=== PATIENT | female | born 1985 | race Caucasian/White ===

== ENCOUNTER 2017-02-28 00:44 | Emergency (ER) | payer MEDICAID, OTHER ==
[~2017-02-28] VITALS: Ht 160 cm; Wt 46.7 kg
[~2017-02-28 00:44] MED LIST: CYCL10TA9 PO; FERR-57 PO; IBP800T PO; NAPR-243 PO; OXYC-12 PO; PREN1TAB39 PO
--- OUTSIDE RECORDS SUMMARY | 2017-02-28 00:54 | XMS REPORT | CCD ---
Author Author KATARINA WILLIAM Organization Unknown Address [address] [facility] [address] [place] [address] Care Team Providers Care Pharmaceutical Officer Name Role Phone MIRTA RUDOLPH, CHAU Auguste Attphys CHAU KIRBY MD Prisurg Allergies Allergy Code Allergy Type Reaction Status No Known Drug Allergies 0 Drug allergy Active Active Medications Medication Code Dose Units Frequency Route Modification Start Date/Time Acetaminophen/Codeine 300MG-30MG Oral Tablet 435751 1 TABLET NEEDED EVERY 6 HR BY MOUTH 02/01/2014 08 :57 Prescription Detail 1 TABLET BY MOUTH NEEDED EVERY 6 HR Ibuprofen 800MG Oral Tablet 575090 800 MILLIGRAMS NEEDED EVERY 8 HR BY MOUTH 02/01/2014 08:57 Prescription Detail 800 MILLIGRAMS BY MOUTH NEEDED EVERY 8 HR Oral Tablet 260271 1 EACH DAILY ORAL 02/01/2014 08:57 Prescription Detail 1 EACH ORAL DAILY Problems Problem Code Start Date Resolved Date Status Vaginal delivery 301661629 Active Female sterilization 78567237 Active Procedures Procedure Code Procedure Type Date CT HEAD W/O CONTRAST 965674245 SNOMED CT 11/20/2015 CULTURE BLOOD 49400839 SNOMED CT 11/20/2015 C REACTIVE PROTEIN 06788890 SNOMED CT 11/20/2015 VENOUS BLOOD GAS 22333830 SNOMED CT 11/20/2015 RAPID DRUG SCREEN 626204955 SNOMED CT 11/20/2015 UA ROUTINE C&S IF IND 116239914 SNOMED CT 11/20/[address] 11/20/2015 COMPREHENSIVE METABOLIC PANEL 352623162 SNOMED CT 2015 CBC W/ AUTO DIFF (RFLX MAN DIFF IF IND) 4331868 SNOMED CT 11/20/2015 ^UA WITH MICRO 268308514 SNOMED CT 11/20/2015 ^CBC W/AUTO DIFF 4895563 SNOMED CT 11/20/2015 Results COMPREHENSIVE METABOLIC PANEL - Collect Date/Time: 11/20/2015 00:10 Test Name Code Test Result Test Units Test Ref Range GLUCOSE 2345-7 99 MG/DL L=70 H=100 SODIUM 2951-2 140 MEQ/L L=135 H=148 POTASSIUM 2823-3 3.4 MEQ/L L=3.5 H=5.3 CHLORIDE 2075-0 104 MEQ/L L=96 H=110 CO2 2028-9 24 MEQ/L L=22 H=29 BUN 3094-0 5 MG/DL L=8 H=22 CREATININE 2160-0 0.9 MG/DL L=0.6 H=1.6 SGOT/AST 1920-8 20 IU/L L=10 H=40 SGPT/ALT 1742-6 19 IU/L L=8 H=54 ALK PHOS 6768-6 106 IU/L L=35 H=115 TOTAL PROTEIN 2885-2 7.2 G/DL L=5.5 H=8.5 ALBUMIN 1751-7 4.6 G/DL L=3.1 H=5.4 TOTAL BILI 1975-2 0.4 MG/DL L=0.0 H=1.5 CALCIUM 92561-2 9.0 MG/DL L=8.2 H=10.6 AGE 29 yrs GFR NonAA 74 GFR AA 90 eGFR >60 N/A eGFR AA* >60 N/A RAPID DRUG SCREEN - Collect Date/Time: 11/20/2015 00:41 Test Name Code Test Result Test Units Test Ref Range Cannabinoids (THC) NEGATIVE N/A NEG: < 50 ng/ ml Phencyclidine (PCP) NEGATIVE N/A NEG: < 25 ng/ ml Cocaine NEGATIVE N/A NEG: < 300 ng/ml Methamphetamine NEGATIVE N/A NEG: < 1000 ng/ml Opiates NEGATIVE N/A NEG: < 300 ng/ml Amphetamine NEGATIVE N/A NEG: < 1000 ng/ml Benzodiazepines NEGATIVE N/A NEG: < 300 ng/ml Tricyclic Antidepres NEGATIVE N/A NEG: < 300 ng/ ml Methadone NEGATIVE N/A NEG: < 300 ng/ml Barbiturates NEGATIVE N/A NEG: < 200 ng/ml Oxycodone NEGATIVE N/A NEG: < 100 ng/ml Propoxyphene (PPX) NEGATIVE N/A NEG: < 300 ng/ ml CBC W/ AUTO DIFF (RFLX MAN DIFF IF IND) - Collect Date/Time: 11/20/2015 00:10 Test Name Code Test Result Test Units Test Ref Range WBC 01923-8 7.0 TH/CMM L=4.5 H=10.8 RBC 789-8 4.37 ML/CMM L=4.20 H=5.40 HGB 718-7 12.2 G/DL L=12.0 H=16.0 HCT 4544-3 38.7 % L=37.0 H=47.0 MCV 89 FL L=81 H=99 MCH 27.9 PG L=27.0 H=33.0 MCHC 31.5 G/DL L=31.0 H=36.0 RDW SD 44 FL L=36 H=50 RDW CV 13.6 % L=0.0 H=14.8 MPV 10.5 FL L=9.3 H=12.5 PLT 777-3 252 TH/CMM L=130 H=440 NRBC# 0.00 TH/CMM L=0.00 H=0.00 NRBC% 0.0 /100WBC L=0.0 H=2.0 %NEUT 57.5 % %LYMP 30.9 % %MONO 9.2 % %EOS 1.9 % %BASO 0.4 % #NEUT 4.00 TH/CMM L=2.10 H=8.20 #LYMP 2.15 TH/CMM L=0.90 H=5.20 #MONO 0.64 TH/CMM L=0.16 H=1.00 #EOS 0.13 TH/CMM L=0.00 H=0.80 #BASO 0.03 TH/CMM L=0.00 H=0.20 MANUAL DIFF NOT IND N/A UA ROUTINE C&S IF IND - Collect Date/Time: 11/20/2015 00:41 Test Name Code Test Result Test Units Test Ref Range COLOR YELLOW N/A NL: YELLOW APPEARANCE CLEAR N/A NL: CLEAR SPEC GRAV 1.015 N/A NL: 1.002 - 1.022 pH 5.5 N/A NL: 5 - 9 PROTEIN NEGATIVE N/A NL: NEGATIVE mg/dl GLUCOSE NEGATIVE N/A NL: NEGATIVE mg/dl KETONE NEGATIVE N/A NL: NEGATIVE mg/dl BILIRUBIN NEGATIVE N/A NL: NEGATIVE BLOOD TRACE-INTACT N/A NL: NEGATIVE NITRITE NEGATIVE N/A NL: NEGATIVE LEUK SCREEN NEGATIVE N/A NL: NEGATIVE MICRO INDICATED? SEE BELOW N/A WBC/HPF 0-5 N/A NL: NEGATIVE RBC/HPF 0-5 N/A NL: NEGATIVE CASTS/LPF NEGATIVE N/A NL: NEGATIVE CRYSTALS NEGATIVE N/A NL: NEGATIVE MUCOUS THRDS FEW N/A NL: NEGATIVE BACTERIA FEW N/A NL: NEGATIVE EPITH CELLS FEW SQUAMOUS N/A NL: NEGATIVE TRICHOMONAS NEGATIVE N/A NL: NEGATIVE YEAST NEGATIVE N/A NL: NEGATIVE CULT SET UP? NO N/A C REACTIVE PROTEIN - Collect Date/Time: 11/20/2015 00:10 Test Name Code Test Result Test Units Test Ref Range C REACTIVE PROTEIN 1988-5 <0.5 MG/DL L=0.0 H= 1.0 TEST - Collect Date/Time: 11/20/2015 00:10 Test Name Code Test Result Test Units Test Ref Range TEST 2117-10 NEGATIVE N/A VENOUS BLOOD GAS - Collect Date/Time: 11/20/2015 00:10 Test Name Code Test Result Test Units Test Ref Range vPH 7.33 L=7.32 H=7.43 vPCO2 49 mmHG L=40 H=60 vPO2 37 mmHG L=30 H=55 vHCO3 25 mmol/L L=22 H=27 vTCO2 23 mmol/L L=24 H=28 vO2SAT 66 % L=40 H=85 SITE RAC N/A FIO2 RA N/A vBE -0.6 N/A L=-2.0 H=2.0 Function Status Unknown or Not Available. History of Immunizations Immunization Code Date Tdap 115 12/14/2013 Influenza, seasonal, injectable, preservative free 140 2013 Influenza, seasonal, injectable, preservative free 140 2015 Influenza, seasonal, injectable 141 01/30/2011 Plan of Treatment Unknown or Not Available. Social History Smoking Status Code Start Date End Date Current every day smoker [id number] Vital Signs Unknown or Not Available. Function Status Unknown or Not Available. Goals Unknown or Not Available. ASSESSMENTS Unknown or Not Available. Health Concerns Section Unknown or Not Available.
--- OUTSIDE RECORDS SUMMARY | 2017-02-28 00:54 | XMS REPORT | CCD ---
Author Author KATARINA WILLIAM Organization Unknown Address [address] [facility] [address] [place] [address] Care Team Providers Care Factory Supervisor Name Role Phone DELVIN RUDOLPH, Ysabel HERNANDEZ Attphys MAIN CARPET CUTTER, LAKSHMI Zaldivar Rndphys 0 Allergies Allergy Code Allergy Type Reaction Status No Known Drug Allergies 0 Drug allergy Active Active Medications Medication Code Dose Units Frequency Route Modification Start Date/Time Acetaminophen/Codeine 300MG-30MG Oral Tablet 179362 1 TABLET NEEDED EVERY 6 HR BY MOUTH 02/01/2014 08 :57 Prescription Detail 1 TABLET BY MOUTH NEEDED EVERY 6 HR Ibuprofen 800MG Oral Tablet 151066 800 MILLIGRAMS NEEDED EVERY 8 HR BY MOUTH 02/01/2014 08:57 Prescription Detail 800 MILLIGRAMS BY MOUTH NEEDED EVERY 8 HR Oral Tablet 968951 1 EACH DAILY ORAL 02/01/2014 08:57 Prescription Detail 1 EACH ORAL DAILY Problems Problem Code Start Date Resolved Date Status Vaginal delivery 081467042 Active Female sterilization 09935877 Active Procedures Procedure Code Procedure Type Date Insertion of Monitoring Device into Chest Subcutaneous Tissue and Fascia, [id number] ICD-10 PCS 12/18/2015 TEST URINE 110472940 SNOMED CT 12/18/2015 Results TEST URINE - Collect Date/Time: 12/18/1999 13:15 Test Name Code Test Result Test Units Test Ref Range TEST UR 2106-3 NEGATIVE N/A Function Status Unknown or Not Available. History of Immunizations Immunization Code Date Tdap 115 12/14/2013 Influenza, seasonal, injectable, preservative free 140 2013 Influenza, seasonal, injectable, preservative free 140 2015 Influenza, seasonal, injectable 141 01/30/2011 Plan of Treatment Unknown or Not Available. Social History Smoking Status Code Start Date End Date Current every day smoker 496263409 Vital Signs Unknown or Not Available. Function Status Unknown or Not Available. Goals Unknown or Not Available. ASSESSMENTS Unknown or Not Available. Health Concerns Section Unknown or Not Available.
--- OUTSIDE RECORDS SUMMARY | 2017-02-28 00:56 | XMS REPORT | CCD ---
Author Author ALEXIS ROTHMAN Organization Unknown Address [address] [facility] [address] [place] [address] Care Team Providers Care Geek Squad Manager Name Role Phone [place] ER, WAQAS DO Attphys [place] ER, WAQAS DO Prisurg Allergies Allergy Code Allergy Type Reaction Status No Known Drug Allergies 0 Drug allergy Active Active Medications Medication Code Dose Units Frequency Route Modification Start Date/Time Acetaminophen/Codeine 300MG-30MG Oral Tablet 985858 1 TABLET NEEDED EVERY 6 HR BY MOUTH 02/01/2014 08 :57 Prescription Detail 1 TABLET BY MOUTH NEEDED EVERY 6 HR Ibuprofen 800MG Oral Tablet 635369 800 MILLIGRAMS NEEDED EVERY 8 HR BY MOUTH 02/01/2014 08:57 Prescription Detail 800 MILLIGRAMS BY MOUTH NEEDED EVERY 8 HR Oral Tablet 331751 1 EACH DAILY ORAL 02/01/2014 08:57 Prescription Detail 1 EACH ORAL DAILY Problems Problem Code Start Date Resolved Date Status Vaginal delivery 704859373 Active Female sterilization 69986074 Active Procedures Unknown or Not Available. Results Unknown or Not Available. Function Status Unknown or Not Available. History of Immunizations Immunization Code Date Tdap 115 12/14/2013 Influenza, seasonal, injectable, preservative free 140 2013 Influenza, seasonal, injectable, preservative free 140 2015 Influenza, seasonal, injectable 141 01/30/2011 Plan of Treatment Unknown or Not Available. Social History Smoking Status Code Start Date End Date Current every day smoker 685263134 Vital Signs Unknown or Not Available. Function Status Unknown or Not Available. Goals Unknown or Not Available. ASSESSMENTS Unknown or Not Available. Health Concerns Section Unknown or Not Available.
--- OUTSIDE RECORDS SUMMARY | 2017-02-28 00:56 | XMS REPORT ---
Author Author Jeri Stinson [facility] Address [address] [place], [place] [id number] Care Team Providers Care Disability Rater Name Role Phone Jeri Stinson PCP Allergies and Adverse Reactions Name Reaction Notes SULFA (SULFONAMIDES) Itching Plan of Treatment Planned Activity Comments Planned Date Planned Time Plan/Goal CBC W/ AUTO DIFF (RFLX MAN DIFF IF IND). 04/11/2015 12:00 AM COMPREHENSIVE METABOLIC PANEL 04/11/2015 12:00 AM TSH 04/11/2015 12:00 AM EKG (12-lead electrocardiogram) 08/07/2015 12:00 AM Est patient - Linq vs 30 day event monitor for evaluation of bradycardia/ weakness/presyncope. Medications Active Name Start Date Estimated Completion Date SIG Comments aspirin 81 mg oral tablet,chewable chew 1 tablet (81 mg) by oral route once daily ranitidine HCl 300 mg oral tablet take 1 tablet (300 mg) by oral route 2 times per day Maxalt 10 mg oral tablet 07/04/2015 take 1 tablet (10 mg) by oral route once, may repeat at 2 hour intervals; do not exceed 30 mg in 24 hours Maxalt 10 mg oral tablet 10/04/2015 take 1 tablet (10 mg) by oral route once, may repeat at 2 hour intervals; do not exceed 30 mg in 24 hours pantoprazole 40 mg oral tablet,delayed release (DR/EC) 10/30/2015 TAKE 1 TABLET BY MOUTH ONCE DAILY Zofran ODT 4 mg oral tablet,disintegrating 11/01/2015 dissolve 1 tablet by oral route every 8 hours as needed nausea and/or vomiting fluticasone 50 mcg/actuation nasal spray,suspension 11/24/2015 inhale 2 sprays (100 mcg) in each nostril by intranasal route once daily cetirizine 10 mg oral tablet 11/24/2015 take 1 tablet (10 mg) by oral route once daily as needed pantoprazole 40 mg oral tablet,delayed release (DR/EC) 01/15/2016 TAKE 1 TABLET BY MOUTH ONCE DAILY cetirizine 10 mg oral tablet 01/15/2016 take 1 tablet (10 mg) by oral route once daily as needed paroxetine HCl 20 mg oral tablet 01/24/2016 05/23/2016 take 1 tablet (20 mg) by oral route once daily for 30 days ProAir HFA 90 mcg/actuation inhalation HFA aerosol inhaler 01/30/2016 inhale 1 puff by inhalation route every 6 hours prn cough midodrine 5 mg oral tablet take 1 tablet by oral route 3 times a day for 30 days rizatriptan 10 mg oral tablet 02/06/2016 TAKE 1 TABLET BY MOUTH ONCE DAILY MAY REPEAT AT 2 HOURS INTERVALS; DO NOT EXCEED 30 MG IN 24 HOURS Tessalon Perles 100 mg oral capsule 02/07/2016 take 1 capsule (100 mg) by oral route 3 times per day as needed for cough Senna Plus 8.6-50 mg oral tablet 03/26/2016 take 2 tablets by oral route once daily as needed for constipation Name Start Date Expiration Date SIG Comments Miralax 17 gram/dose oral powder 01/12/2014 02/11/2014 take 17 gram mixed with 8 oz. water, juice, soda, coffee or tea by oral route once daily for 30 days Zofran (as hydrochloride) 4 mg oral tablet 01/12/2014 02/11/2014 take 1 tablet by oral route every 6 hours as needed for 30 days Dexilant 60 mg oral capsule,biphase delayed releas 08/09/2014 09/08/2014 take 1 capsule (60 mg) by oral route once daily for 30 days amitriptyline 25 mg oral tablet 08/09/2014 09/08/2014 take 1/2 to 1 tablet po qHS Augmentin 875-125 mg oral tablet 09/29/2014 10/06/2014 take 1 tablet by oral route every 12 hours for 7 days ibuprofen 800 mg oral tablet Take 1 tab PO every 6 hours PRN Reglan 10 mg oral tablet 04/27/2015 05/27/2015 take 1 tablet (10 mg) by oral route 4 times per day 30 minutes before meals and at bedtime for 30 days Protonix 40 mg oral tablet,delayed release (DR/EC) 07/04/2015 09/02/2015 take 1 tablet by oral route daily for 30 days Ultram 50 mg oral tablet 07/04/2015 07/11/2015 take 1 tablet (50 mg) by oral route every 4-6 hours as needed for 7 days doxycycline monohydrate 100 mg oral tablet 11/24/2015 12/01/2015 take 1 tablet by oral route 2 times a day for 7 days doxycycline monohydrate 100 mg oral tablet 02/07/2016 02/14/2016 take 1 tablet by oral route 2 times a day for 7 days Discontinued Name Start Date Discontinued Date SIG Comments Vitamin oral tablet 03/03/2014 take 1 tablet by oral route once daily Percocet 5-325 mg oral tablet 03/03/2014 09/13/2014 take 1 tablet by oral route every 4-6 hours as needed ibuprofen 800 mg oral tablet 03/03/2014 09/13/2014 take 1 tablet by oral route every 8 hours as needed for 30 days Zoloft 50 mg oral tablet 03/09/2014 09/29/2014 take 1 tablet (50 mg) by oral route once daily Diflucan 150 mg oral tablet 03/14/2014 09/13/2014 take 1 tablet (150 mg) by oral route once Protonix 40 mg oral tablet,delayed release (DR/EC) 09/07/2015 11/01/2015 take 1 tablet by oral route daily for 30 days triamcinolone acetonide 0.025 % topical cream 11/16/2015 01/17/2016 apply to affected area(s) by topical route 2 times a day as needed for itching Prozac 20 mg oral capsule 2015 12/21/2015 take 1 capsule (20 mg) by oral route once daily in the morning for 30 days 4C discontinued with start of Latuda - prozac was effective Lexapro 10 mg oral tablet 12/20/2015 take 1 tablet (10 mg) by oral route once daily Latuda 20 mg oral tablet 01/17/2016 take 1 tablet (20 mg) by oral route once daily with food (at least 350 calories) for 30 days fluoxetine 20 mg oral tablet 01/17/2016 01/24/2016 take 1 tablet by oral route 2 times a day for 30 days Problem List Description Status Onset Nausea Active 07/22/2014 Diarrhea Active 07/22/2014 Rectal bleeding Active 07/22/2014 Weight loss Active 07/22/2014 GERD (gastroesophageal reflux disease) Active 07/22/2014 Dyspepsia Active 03/07/2015 IBS (irritable bowel syndrome) Active 03/07/2015 Depression with anxiety Active 11/22/2015 Panic attack as reaction to stress Active 2015 Vital Signs Date Time BP-Sys(mm[Hg] BP-Sofia(mm[Hg]) HR(bpm) RR(rpm) Temp WT HT HC BMI BSA BMI Percentile O2 Sat(%) 03/26/2016 10:37:00 AM 102 mmHg 64 mmHg 73 bpm 16 rpm 97.7 F 118.5 lbs 63 in 20.99 kg/m2 1.55 m2 98 % 02/07/2016 1:54:00 PM 104 mmHg 54 mmHg 67 bpm 12 rpm 98.3 F 116.75 lbs 63 in 20.6811 kg/m 1.5343 m 98 % 01/30/2016 2:23:00 PM 104 mmHg 62 mmHg 50 bpm 14 rpm 96.9 F 115.5 lbs 63 in 20.46 kg/m2 1.53 m2 99 % 01/24/2016 10:45:00 AM 100 mmHg 54 mmHg 42 bpm 12 rpm 96.1 F 112 lbs 98 % 01/17/2016 10:51:00 AM 110 mmHg 62 mmHg 67 bpm 14 rpm 97.1 F 114.75 lbs 63 in 20.3268 kg/m 1.52 m2 100 % 12/20/2015 3:22:00 PM 104 mmHg 58 mmHg 44 bpm 12 rpm 97.7 F 115.5 lbs 63 in 20.46 kg/m2 1.526 m 100 % 11/24/2015 9:20:00 AM 98 mmHg 60 mmHg 63 bpm 12 rpm 97.2 F 110.5 lbs 63 in 19.574 kg/m 1.49 m2 99 % 11/22/2015 1:41:00 PM 104 mmHg 54 mmHg 66 bpm 12 rpm 97.3 F 110.5 lbs 63 in 19.57 kg/m2 1.4926 m 100 % 11/16/2015 10:46:00 AM 120 mmHg 68 mmHg 55 bpm 12 rpm 97.3 F 110.5 lbs 63 in 19.574 kg/m 1.49 m2 98 % 11/01/2015 9:37:00 AM 98 mmHg 58 mmHg 59 bpm 12 rpm 96.6 F 114.25 lbs 98 % 08/29/2015 10:14:00 AM 106 mmHg 54 mmHg 59 bpm 18 rpm 97.2 F 115.5 lbs 63 in 20.4597 kg/m 1.53 m2 99 % 08/07/2015 2:23:00 PM 102 mmHg 62 mmHg 57 bpm 20 rpm 97.1 F 119 lbs 63 in 21.08 kg/m2 1.549 m 99 % 07/04/2015 10:29:00 AM 59 bpm 20 rpm 98.6 F 121.5 lbs 63 in 21.5225 kg/m 1.57 m2 100 % 05/24/2015 9:19:00 AM 112 mmHg 45 mmHg 50 bpm 97.4 F 120 lbs 63 in 21.26 kg/m2 1.5555 m 05/09/2015 3:50:00 PM 119 mmHg 33 mmHg 50 bpm 98.3 F 116 lbs 63 in 20.5483 kg/m 1.53 m2 05/05/2015 10:52:00 AM 110 mmHg 70 mmHg 63 bpm 16 rpm 97.1 F 115 lbs 63 in 20.37 kg/m2 1.5227 m 98 % 04/21/2015 10:58:00 AM 124 mmHg 60 mmHg 73 bpm 18 rpm 97.7 F 110.5 lbs 63 in 19.574 kg/m 1.49 m2 100 % 04/10/2015 3:11:00 PM 112 mmHg 58 mmHg 58 bpm 16 rpm 98.1 F 108 lbs 63 in 19.13 kg/m2 1.4756 m 96 % 02/28/2015 9:55:00 AM 108 mmHg 70 mmHg 78 bpm 16 rpm 97 F 109 lbs 63 in 19.3083 kg/m 1.48 m2 11/07/2014 10:24:00 AM 113 mmHg 43 mmHg 41 bpm 98.1 F 106 lbs 63 in 18.78 kg/m2 1.4619 m 09/29/2014 10:33:00 AM 101 mmHg 43 mmHg 43 bpm 97.8 F 106.25 lbs 63 in 18.8211 kg/m 1.46 m2 09/13/2014 3:04:00 PM 102 mmHg 78 mmHg 60 bpm 20 rpm 103.375 lbs 63 in 18.31 kg/m2 1.4437 m 08/09/2014 1:53:00 PM 133 mmHg 87 mmHg 71 bpm 18 rpm 98.2 F 102 lbs 63 in 18.0683 kg/m 1.43 m2 07/22/2014 2:39:00 PM 122 mmHg 52 mmHg 53 bpm 16 rpm 97.9 F 113.312 lbs 63 in 20.07 kg/m2 1.5115 m 03/28/2014 11:46:00 AM 114 mmHg 63 mmHg 88 bpm 98.2 F 124.25 lbs 63 in 22.0097 kg/m 1.58 m2 03/09/2014 11:02:00 AM 122 mmHg 64 mmHg 61 bpm 18 rpm 96.8 F 124 lbs 63 in 21.97 kg/m2 1.5812 m 99 % 03/03/2014 1:58:00 PM 127 mmHg 80 mmHg 93 bpm 97.5 F 129.25 lbs 63 in 22.8954 kg/m 1.61 m2 01/12/2014 4:41:00 PM 129 mmHg 75 mmHg 77 bpm 97.7 F 141.375 lbs 63 in 25.04 kg/m2 1.6883 m Social History Name Description Comments Tobacco Current every day smoker Alcohol Current some day Denies illicit substance abuse History of Procedures Date Ordered Description Order Status 04/11/2015 12:13 PM URINALYSIS AUTO W/O SCOPE Reviewed 04/10/2015 12:00 AM GENERAL HEALTH PANEL Reviewed 04/10/2015 12:00 AM URNLS DIP STICK/TABLET RGNT AUTO W/O MICROSCOPY Reviewed 04/21/2015 12:[address] THORAX W/DYE Reviewed 04/21/2015 12:00 AM US EXAM ABDOM COMPLETE Reviewed 04/21/2015 12:00 AM ACUTE HEPATITIS PANEL Reviewed 05/09/2015 12:[address] PELVIS W/O & W/DYE Reviewed 05/09/2015 12:00 AM N.GONORRHOEAE DNA AMP PROB Reviewed 05/09/2015 12:00 AM CHLAMYDIA CULTURE Reviewed 05/12/2015 12:[address] ABD & PELV 1/> REGNS Reviewed 05/31/2015 12:00 AM US EXAM PELVIC COMPLETE Returned 05/24/2015 10:16 AM URINE TEST Reviewed 04/19/2015 12:00 AM ASSAY OF GGT Reviewed 08/07/2015 12:00 AM GENERAL HEALTH PANEL Returned 08/07/2015 12:00 AM ECG MONIT/REPRT UP TO 48 HRS Returned 11/01/2015 12:00 AM SPECIMEN HANDLING OFFICE-LAB Reviewed 11/01/2015 12:00 AM ROUTINE VENIPUNCTURE Reviewed 11/01/2015 12:00 AM COMPLETE CBC W/AUTO DIFF WBC Returned 11/01/2015 12:00 AM COMPREHEN METABOLIC PANEL Returned 11/01/2015 12:00 AM ASSAY OF FERRITIN Returned 11/01/2015 12:00 AM ASSAY OF IRON Returned 11/01/2015 12:00 AM IRON BINDING TEST Reviewed 01/12/2014 12:00 AM CYTOPATH C/V THIN LAYER Reviewed 01/12/2014 12:00 AM SPECIMEN HANDLING OFFICE-LAB Reviewed 01/12/2014 12:00 AM Urine toxicology screen Reviewed 01/13/2014 12:00 AM UMBILICAL ARTERY ECHO Reviewed 01/13/2014 12:00 AM OB US LIMITED FETUS(S) Reviewed 01/26/2014 12:00 AM OB US LIMITED FETUS(S) Reviewed 01/28/2014 12:00 AM GLUCOSE TOLERANCE TEST (GTT) Reviewed 03/03/2014 12:00 AM COMPLETE CBC W/AUTO DIFF WBC Reviewed 03/03/2014 12:00 AM Type and screen Reviewed 03/09/2014 12:00 AM CYTOPATH TBS C/V MANUAL Reviewed 03/09/2014 12:00 AM SPECIMEN HANDLING OFFICE-LAB Reviewed 03/09/2014 12:00 AM N.GONORRHOEAE DNA AMP PROB Reviewed 03/09/2014 12:00 AM CHYLMD TRACH DNA AMP PROBE Reviewed 07/22/2014 12:00 AM COMPLETE CBC W/AUTO DIFF WBC Reviewed 07/22/2014 12:00 AM COMPREHEN METABOLIC PANEL Reviewed 07/22/2014 12:00 AM ASSAY OF LIPASE Reviewed 07/22/2014 12:00 AM ECHO EXAM OF ABDOMEN Reviewed 07/22/2014 12:00 AM HEPATOBILIARY SYSTEM IMAGING Reviewed 07/22/2014 12:00 AM ASSAY OF AMYLASE Reviewed 09/13/2014 12:00 AM US EXAM PELVIC COMPLETE Reviewed 09/13/2014 12:00 AM TRANSVAGINAL US NON-OB Reviewed 09/13/2014 12:00 AM US EXAM PELVIC COMPLETE Reviewed 09/13/2014 12:00 AM US EXAM PELVIC LIMITED Reviewed 09/29/2014 10:43 AM URINE TEST Reviewed 09/29/2014 12:00 AM BX/CURETT OF CERVIX W/SCOPE Reviewed 11/14/2014 12:00 AM US EXAM PELVIC COMPLETE Reviewed 11/07/2014 12:00 AM COMPLETE CBC W/AUTO DIFF WBC Reviewed 11/07/2014 12:00 AM COMPREHEN METABOLIC PANEL Reviewed 11/07/2014 12:00 AM RBC SED RATE AUTOMATED Reviewed 11/07/2014 12:00 AM C-REACTIVE PROTEIN Reviewed 11/07/2014 12:00 AM IMMUNOASSAY TUMOR CA 125 Reviewed 11/07/2014 12:00 AM US EXAM PELVIC COMPLETE Reviewed 11/07/2014 12:00 AM HEPATITIS C AB TEST Reviewed 11/07/2014 12:00 AM HEPATITIS B SURFACE AG EIA Reviewed Results Summary Data and Description Results 12/18/1999 1:15 PM TEST UR NEGATIVE 01/06/2014 11:15 PM AMNISURE ROM NEGATIVE 01/07/2014 3:15 AM COLOR YELLOW APPEARANCE HAZY SPEC GRAV >=1.030 pH 6.0 PROTEIN NEGATIVE GLUCOSE NEGATIVE KETONE NEGATIVE BILIRUBIN NEGATIVE BLOOD NEGATIVE NITRITE NEGATIVE LEUK SCREEN SMALL WBC/HPF 10-20 RBC/HPF 0-5 CASTS/LPF NEGATIVE CRYSTALS NEGATIVE MUCOUS THRDS 2++ BACTERIA 1+ EPITH CELLS 1+ SQUAMOUS TRICHOMONAS NEGATIVE YEAST NEGATIVE CULT SET UP? YES Cannabinoids (THC) NEGATIVE Phencyclidine (PCP) NEGATIVE Cocaine NEGATIVE Methamphetamine NEGATIVE Opiates NEGATIVE Amphetamine NEGATIVE Benzodiazepines NEGATIVE Tricyclic Antidepres NEGATIVE Methadone NEGATIVE Barbiturates NEGATIVE Oxycodone NEGATIVE Propoxyphene (PPX) NEGATIVE 01/07/2014 8:40 AM WBC 8.2 RBC 3.58 HGB 11.0 g/dLHCT 32.10 %MCV 90.0 fLMCH 30.70 pgMCHC 34.30 g/dLRDW SD 45 RDW CV 13.80 %MPV 11.30 fLPLT 132 NRBC# 0.00 NRBC% 0.0 %NEUT 66.70 %%LYMP 22.20 %%MONO 9.90 %%EOS 1.0 %%BASO 0.20 %#NEUT 5.46 #LYMP 1.82 #MONO 0.81 #EOS 0.08 #BASO 0.02 MANUAL DIFF NOT IND GLUCOSE 75.0 mg/dLSODIUM 135.0 mmol/LPOTASSIUM 3.80 mmol/LCHLORIDE 106.0 mmol/LCO2 20.0 mmol/LBUN 8.0 mg/dLCREATININE 0.60 mg/dLSGOT/AST 12.0 IU/LSGPT/ALT 7.0 IU/LALK PHOS 149.0 IU/LTOTAL PROTEIN 5.80 g/dLALBUMIN 3.0 g/dLTOTAL BILI 0.70 mg/ dLCALCIUM 8.90 mg/dLAGE 28 GFR NonAA 119 GFR AA 144 eGFR 60 eGFR AA* 60 01/20/2014 2:57 PM Cannabinoids (THC) NEGATIVE Phencyclidine (PCP) NEGATIVE Cocaine NEGATIVE Methamphetamine NEGATIVE Opiates NEGATIVE Amphetamine NEGATIVE Benzodiazepines NEGATIVE Tricyclic Antidepres NEGATIVE Methadone NEGATIVE Barbiturates NEGATIVE Oxycodone NEGATIVE Propoxyphene (PPX) NEGATIVE COLOR YELLOW APPEARANCE CLEAR SPEC GRAV 1.010 pH 6.5 PROTEIN NEGATIVE GLUCOSE NEGATIVE KETONE NEGATIVE BILIRUBIN NEGATIVE BLOOD NEGATIVE NITRITE NEGATIVE LEUK SCREEN NEGATIVE WBC/HPF NEGATIVE RBC/HPF NEGATIVE CASTS/LPF NEGATIVE CRYSTALS NEGATIVE MUCOUS THRDS NEGATIVE BACTERIA NEGATIVE EPITH CELLS FEW SQUAMOUS TRICHOMONAS NEGATIVE YEAST NEGATIVE CULT SET UP? NO 01/26/2014 11:15 AM AMNISURE ROM NEGATIVE 01/27/2014 6:35 PM CALLED TO/BY DR LEÓN/PATI 01/29/2014 6:34 PM AMNISURE ROM NEGATIVE 01/29/2014 8:25 PM HIV AG/AB COMBO 0.10 WBC 10.1 RBC 3.84 HGB 11.50 g/dLHCT 33.80 %MCV 88.0 fLMCH 29.90 pgMCHC 34.0 g/dLRDW SD 44 RDW CV 13.60 %MPV 11.70 fLPLT 136 NRBC# 0.00 NRBC% 0.0 %NEUT 74.90 %%LYMP 17.80 %%MONO 6.60 %%EOS 0.50 % %BASO 0.20 %#NEUT 7.57 #LYMP 1.80 #MONO 0.67 #EOS 0.05 #BASO 0.02 MANUAL DIFF NOT IND 01/31/2014 6:30 AM WBC 9.8 RBC 3.51 HGB 10.50 g/dLHCT 31.50 %MCV 90.0 fLMCH 29.90 pgMCHC 33.30 g/dLRDW SD 45 RDW CV 13.70 %MPV 11.30 fLPLT 124 NRBC# 0.00 NRBC% 0.0 03/14/2014 4:40 PM WBC 5.8 RBC 4.57 HGB 13.70 g/dLHCT 41.10 %MCV 90.0 fLMCH 30.0 pgMCHC 33.30 g/dLRDW SD 41 RDW CV 12.70 %MPV 10.20 fLPLT 180 NRBC# 0.00 NRBC% 0.0 %NEUT 69.30 %%LYMP 19.80 %%MONO 9.60 %%EOS 1.0 %%BASO 0.30 %#NEUT 4.03 #LYMP 1.15 #MONO 0.56 #EOS 0.06 #BASO 0.02 MANUAL DIFF NOT IND 03/15/2014 6:42 AM TEST UR NEGATIVE 09/29/2014 11:34 AM Test, Urine negative 11/07/2014 11:10 AM GLUCOSE 84.0 mg/dLSODIUM 140.0 mmol/LPOTASSIUM 3.70 mmol/ LCHLORIDE 103.0 mmol/LCO2 29.0 mmol/LBUN 12.0 mg/dLCREATININE 0.80 mg/dLSGOT/ AST 65.0 IU/LSGPT/ALT 92.0 IU/LALK PHOS 168.0 IU/LTOTAL PROTEIN 7.60 g/ dLALBUMIN 4.70 g/dLTOTAL BILI 0.60 mg/dLCALCIUM 9.80 mg/dLAGE 28 GFR NonAA 85 GFR AA 103 eGFR >60 mL/min/1.73meGFR AA* >60 C REACTIVE PROTEIN <0.5 mg/LWBC 5.4 RBC 4.41 HGB 13.0 g/dLHCT 39.90 %MCV 91.0 fLMCH 29.50 pgMCHC 32.60 g/dLRDW SD 45 RDW CV 13.70 %MPV 10.90 fLPLT 237 NRBC# 0.00 NRBC% 0.0 %NEUT 58.90 %%LYMP 32.80 %%MONO 6.80 %%EOS 0.90 %%BASO 0.60 %#NEUT 3.19 #LYMP 1.78 #MONO 0.37 #EOS 0.05 #BASO 0.03 MANUAL DIFF NOT IND SEDRATE 5.0 mm/hrCancer Antigen (CA) 125 7.0 U/mL 11/07/2014 5:16 PM Hep A Ab, IgM Negative HBsAg Screen Negative Hep B Core Ab, IgM Negative Hep B Surface Ab, Qual Reactive Index ValueHCV Ab <0.1 04/11/2015 12:13 PM Clarity Ur clear Color Ur yellow Glucose Ur-sCnc neg Bilirub Ur Ql Strip neg Ketones Ur Ql Strip neg Sp Gr Ur Qn 1.025 Hgb Ur Ql Strip trace pH Ur-LsCnc 6.0 Prot Ur Ql Strip neg Urobilinogen Ur-mCnc 0.2 Nitrite Ur Ql Strip neg WBC Est Ur Ql Strip neg 04/11/2015 2:31 PM GLUCOSE 82.0 mg/dLSODIUM 140.0 mmol/LPOTASSIUM 4.30 mmol/ LCHLORIDE 103.0 mmol/LCO2 29.0 mmol/LBUN 16.0 mg/dLCREATININE 0.90 mg/dLSGOT/ AST 32.0 IU/LSGPT/ALT 49.0 IU/LALK PHOS 119.0 IU/LTOTAL PROTEIN 6.70 g/ dLALBUMIN 4.50 g/dLTOTAL BILI 0.50 mg/dLCALCIUM 9.20 mg/dLAGE 29 GFR NonAA 74 GFR AA 90 eGFR >60 mL/min/1.73meGFR AA* >60 TSH 0.40 uIU/mLWBC 5.1 RBC 4.40 HGB 13.10 g/dLHCT 40.50 %MCV 92.0 fLMCH 29.80 pgMCHC 32.30 g/dLRDW SD 45 RDW CV 13.30 %MPV 11.50 fLPLT 213 NRBC# 0.00 NRBC% 0.0 %NEUT 55.40 %%LYMP 34.20 %%MONO 8.40 %%EOS 1.20 %%BASO 0.80 %#NEUT 2.85 #LYMP 1.76 #MONO 0.43 #EOS 0.06 #BASO 0.04 MANUAL DIFF NOT IND COLOR YELLOW APPEARANCE CLEAR SPEC GRAV 1.015 pH 6.5 PROTEIN NEGATIVE GLUCOSE NEGATIVE mg/dLKETONE NEGATIVE BILIRUBIN NEGATIVE BLOOD NEGATIVE NITRITE NEGATIVE LEUK SCREEN NEGATIVE MICRO INDICATED? NOT INDICATED 04/20/2015 4:03 PM GGTP 95 05/02/2015 11:30 AM Hep A Ab, IgM Negative HBsAg Screen Negative Hep B Core Ab, IgM Negative Hep C Virus Ab <0.1 05/24/2015 10:26 AM Test, Urine negative 08/07/2015 2:30 PM WBC 6.6 RBC 4.09 HGB 11.90 g/dLHCT 37.30 %MCV 91.0 fLMCH 29.10 pgMCHC 31.90 g/dLRDW SD 42 RDW CV 12.60 %MPV 12.0 fLPLT 188 NRBC# 0.00 NRBC% 0.0 %NEUT 65.30 %%LYMP 27.60 %%MONO 5.20 %%EOS 1.10 %%BASO 0.60 %#NEUT 4.28 #LYMP 1.81 #MONO 0.34 #EOS 0.07 #BASO 0.04 MANUAL DIFF NOT IND GLUCOSE 90.0 mg/dLSODIUM 139.0 mmol/LPOTASSIUM 3.80 mmol/LCHLORIDE 105.0 mmol/LCO2 25.0 mmol/LBUN 10.0 mg/dLCREATININE 0.80 mg/dLSGOT/AST 20.0 IU/LSGPT/ALT 20.0 IU/ LALK PHOS 109.0 IU/LTOTAL PROTEIN 6.40 g/dLALBUMIN 4.30 g/dLTOTAL BILI 0.30 mg/ dLCALCIUM 9.30 mg/dLAGE 29 GFR NonAA 85 GFR AA 103 eGFR >60 mL/min/1.73meGFR AA* >60 TSH 0.430 uIU/mL 11/01/2015 3:30 PM GLUCOSE 99.0 mg/dLSODIUM 139.0 mmol/LPOTASSIUM 3.80 mmol/ LCHLORIDE 104.0 mmol/LCO2 26.0 mmol/LBUN 10.0 mg/dLCREATININE 0.80 mg/dLSGOT/ AST 19.0 IU/LSGPT/ALT 22.0 IU/LALK PHOS 101.0 IU/LTOTAL PROTEIN 7.0 g/dLALBUMIN 4.60 g/dLTOTAL BILI 0.70 mg/dLCALCIUM 9.50 mg/dLAGE 29 GFR NonAA 85 GFR AA 103 eGFR >60 mL/min/1.73meGFR AA* >60 WBC 7.0 RBC 4.24 HGB 12.0 g/dLHCT 37.30 % MCV 88.0 fLMCH 28.30 pgMCHC 32.20 g/dLRDW SD 45 RDW CV 14.0 %MPV 11.80 fLPLT 180 NRBC# 0.00 NRBC% 0.0 %NEUT 76.90 %%LYMP 15.50 %%MONO 6.50 %%EOS 0.10 %%BASO 0.70 %#NEUT 5.34 #LYMP 1.08 #MONO 0.45 #EOS 0.01 #BASO 0.05 MANUAL DIFF NOT IND IRON TOTAL 95.0 ug/dLTransferrin 346.0 mg/dLTIBC Calculation 433 %Saturation Calc 22 FERRITIN 10.0 ng/mL History Of Immunizations Not available. History of Past Illness Name Date of Onset Comments Shortness of breath Headache Head Injury, Closed at age 16 Nausea 07/22/2014 Diarrhea 07/22/2014 Rectal bleeding 07/22/2014 Weight loss 07/22/2014 GERD (gastroesophageal reflux disease) 07/22/2014 Irregular Heartbeat Heart murmur Dyspepsia 03/07/2015 IBS (irritable bowel syndrome) 03/07/2015 Depression with anxiety 11/22/2015 Panic attack as reaction to stress 2015 Care, High Risk Jan 12 2014 4:42PM complicated by tobacco use Jan 12 2014 4:42PM growth retardation, unspecified; unspecified [weight] Jan 13 2014 1: 47PM Impaired glucose tolerance test (oral) Jan 28 2014 8:42AM , High Risk Jan 28 2014 8:42AM pre-operative examination, unspecified Mar 03 2014 2:02PM Encounter for sterilization Mar 03 2014 2:02PM Follow-up, Routine Mar 09 2014 11:04AM Contraceptive Counseling Mar 09 2014 11:04AM Depression Mar 09 2014 11:04AM Depression, Mar 28 2014 11:47AM Weight Loss Jul 22 2014 2:33PM Diarrhea Jul 22 2014 2:33PM Abdominal pain Jul 22 2014 2:33PM Vomiting Jul 22 2014 2:33PM Nausea Jul 22 2014 2:39PM weight loss Jul 22 2014 2:39PM Diarrhea Jul 22 2014 2:39PM Rectal bleeding Jul 22 2014 2:39PM GERD (gastroesophageal reflux disease) Jul 22 2014 2:39PM IBS (irritable bowel syndrome) Aug 09 2014 2:03PM Pelvic Pain Sep 13 2014 4:03PM Pelvic Pain Sep 13 2014 3:10PM Vaginal discharge Sep 13 2014 3:10PM Special investigations and examinations; examination or test; examination or test, negative result Sep 29 2014 10:43AM Low grade squamous intraepithelial lesion (LGSIL) on Pap smear Sep 29 2014 10: 37AM Pelvic Pain Nov 07 2014 10:52AM Pelvic Pain Nov 07 2014 10:26AM Lymph node enlargement Nov 07 2014 10:26AM Weight loss Nov 07 2014 10:26AM Weight loss Nov 07 2014 5:05PM Lymph nodes enlarged Nov 07 2014 5:05PM Dyspepsia Feb 28 2015 10:18AM IBS (irritable bowel syndrome) Feb 28 2015 10:18AM Nausea Apr 10 2015 3:14PM Weight loss Apr 10 2015 3:14PM Urinary frequency Apr 10 2015 3:14PM Alkaline phosphatase elevation Apr 19 2015 6:56AM Weight loss Apr 21 2015 11:01AM Nausea & vomiting Apr 21 2015 11:01AM Dyspepsia Apr 21 2015 11:01AM IBS (irritable bowel syndrome) Apr 21 2015 11:01AM Lung nodule < 6cm on CT Apr 21 2015 11:01AM Elevated liver function tests Apr 21 2015 11:01AM Pelvic Pain - Right May 09 2015 3:54PM Irregular Menses May 09 2015 3:54PM Pelvic Pain May 10 2015 4:15PM Pelvic pain in female May 24 2015 10:15AM Pelvic Pain May 24 2015 9:25AM Personal history of cervical dysplasia May 24 2015 9:25AM Irritable bowel syndrome without diarrhea May 24 2015 9:25AM Nausea & vomiting May 05 2015 10:54AM Dyspepsia May 05 2015 10:54AM IBS (irritable bowel syndrome) May 05 2015 10:54AM Migraine without aura and without status migrainosus, not intractable May 05 2015 10:54AM Dyspepsia Jul 04 2015 10:30AM IBS (irritable bowel syndrome) Jul 04 2015 10:30AM Migraine without aura and without status migrainosus, not intractable Jul 04 2015 10:30AM Weight Loss Jul 27 2015 8:48AM Fatigue Jul 27 2015 8:48AM Fatigue, unspecified type Aug 07 2015 2:26PM Vertigo Aug 07 2015 2:26PM Bradycardia Aug 07 2015 2:26PM Dyspepsia Aug 29 2015 10:16AM GERD (gastroesophageal reflux disease) Aug 29 2015 10:16AM Vertigo Nov 01 2015 9:40AM Bradycardia Nov 01 2015 9:40AM Anemia Nov 01 2015 9:40AM Anemia Nov 01 2015 10:59AM Vertigo Nov 01 2015 10:59AM Depression with anxiety Nov 16 2015 10:49AM Rash and nonspecific skin eruption Nov 16 2015 10:49AM Depression with anxiety Nov 22 2015 1:43PM Panic attack as reaction to stress Nov 22 2015 1:43PM Upper respiratory tract infection, unspecified type Nov 24 2015 9:23AM Depression with anxiety Dec 20 2015 3:25PM Encntr for surgical aftcr fol surgery on the skin, subcu Dec 20 2015 3:25PM Depression with anxiety Jan 17 2016 10:53AM Depression with anxiety Jan 24 2016 10:48AM Nasopharyngitis acute Jan 30 2016 2:25PM Acute bronchitis, unspecified organism Feb 07 2016 1:56PM Left lower quadrant pain Mar 26 2016 10:40AM Payers Insurance Name Company Name Plan Name Plan Number Policy Number Policy Group Number Start Date [facility] Comm [id number] N/A [facility] Comm Plan of [id number] N/A History of Encounters Visit Date Visit Type Provider 03/26/2016 Office visit Jeri BISWAS 02/07/2016 Office visit Jeri BISWAS 01/30/2016 Office visit Jeri BISWAS 01/24/2016 Office visit Jeri BISWAS 01/17/2016 Office visit Jeri BISWAS 12/20/2015 Office visit Jeri BISWAS 11/24/2015 Office visit Jeri BISWAS 11/22/2015 Office visit Jeri BISWAS 11/20/2015 Hospital Ysabel Chi MD 11/19/2015 [facility] Ysabel Chi MD 11/16/2015 Office visit Jeri BISWAS 11/01/2015 [facility] Ysabel Chi MD 11/01/2015 Office visit Jeri BISWAS 10/26/2015 [facility] Ysabel Chi MD 08/29/2015 Office visit Jeri BISWAS 08/07/2015 Office visit Jeri BISWAS 07/04/2015 Office visit Jeri BISWAS 06/18/2015 Hospital Ysabel Chi MD 05/24/2015 Office visit 05/24/2015 Office visit Micky Rider MD 05/09/2015 Office visit Karen Diane APRN 05/05/2015 Office visit Jeri BISWAS 04/21/2015 Office visit Jeri BISWAS 04/20/2015 Laboratory Jeri BISWAS 04/11/2015 Laboratory Jeri BISWAS 04/10/2015 Office visit Jeri BISWAS 02/28/2015 Office visit Kenneth Motta DO 11/07/2014 Office visit 11/07/2014 Office visit Karen Diane STAFF SCIENTIST 09/29/[address] JULY CHAVEZ MD 09/13/2014 Office visit Karen Diane STAFF SCIENTIST 08/09/2014 Office visit Kenneth Motta DO 07/28/2014 Hospital Kenneth Motta DO 07/22/2014 Office visit 07/22/2014 Office visit Kenneth Motta DO 06/04/2014 [facility] Ysabel Chi MD 03/28/2014 Office visit Vijay León MD 03/15/2014 [facility] Vijay León MD 03/09/2014 Office visit Dimitry García MD 03/03/2014 Surgery Vijay León MD 01/30/2014 [facility] Vijay León MD 01/27/2014 Office visit Vijay León MD 01/27/2014 [facility] Vijay León MD 01/26/2014 Office visit Vijay León MD 01/26/2014 [facility] Vijay León MD 01/12/2014 Office visit Vijay León MD 01/12/2014 [facility] Vijay León MD 01/07/2014 [facility] Vijay León MD
--- OUTSIDE RECORDS SUMMARY | 2017-02-28 00:57 | XMS REPORT ---
Author Author Jeri Stinson [facility] Address [address] [place], [place] [id number] Care Team Providers Care Marketing Program Manager Name Role Phone Jeri Stinson PCP Allergies [...] ONCE DAILY cetirizine 10 mg oral tablet 11/24/2015 take 1 tablet (10 mg) by oral route once daily as needed pantoprazole 40 mg oral tablet,delayed release (DR/EC) 01/15/2016 TAKE 1 TABLET BY MOUTH ONCE DAILY rizatriptan 10 mg oral tablet 02/06/2016 TAKE 1 TABLET BY MOUTH ONCE DAILY MAY REPEAT AT 2 HOURS INTERVALS; DO NOT EXCEED 30 MG IN 24 HOURS pantoprazole 40 mg oral tablet,delayed release (DR/EC) 04/17/2016 07/16/2016 take 1 tablet (40 mg) by oral route once daily for 90 days ProAir HFA 90 mcg/actuation inhalation HFA aerosol inhaler 05/09/2016 inhale 1 puff by inhalation route every 6 hours prn cough midodrine 10 mg oral tablet take 1 tablet (10 mg) by oral route 3 times per day paroxetine HCl 20 mg oral tablet 05/30/2016 09/27/2016 take 1 tablet (20 mg) by oral route once daily for 30 days ranitidine HCl 300 mg oral tablet 06/03/2016 TAKE 1 TABLET BY MOUTH DAILY AT BEDTIME paroxetine HCl 30 mg oral tablet 06/05/2016 take 1 tablet (30 mg) by oral route once daily Name Start Date Expiration Date SIG Comments [...] 2 times a day for 7 days cetirizine 10 mg oral tablet 04/22/2016 06/21/2016 take 1 tablet (10 mg) by oral route once daily as needed for 30 days Discontinued Name Start Date Discontinued Date [...] by oral route daily for 30 days Maxalt 10 mg oral tablet 10/04/2015 06/05/2016 take 1 tablet (10 mg) by oral route once, may repeat at 2 hour intervals; do not exceed 30 mg in 24 hours Zofran ODT 4 mg oral tablet,disintegrating 11/01/2015 06/05/2016 dissolve 1 tablet by oral route every 8 hours as needed nausea and/or vomiting triamcinolone acetonide 0.025 % topical cream 11/16/2015 01/17/2016 apply to affected area(s) by topical route 2 times a day as needed for itching Prozac 20 mg oral capsule 2015 12/21/2015 take 1 capsule (20 mg) by oral route once daily in the morning for 30 days 4C discontinued with start of Latuda - prozac was effective fluticasone 50 mcg/actuation nasal spray,suspension 11/24/2015 06/05/2016 inhale 2 sprays (100 mcg) in each nostril by intranasal route once daily Lexapro 10 mg oral tablet 12/20/2015 take 1 tablet (10 mg) by oral route once daily Latuda 20 mg oral tablet 01/17/2016 take 1 tablet (20 mg) by oral route once daily with food (at least 350 calories) for 30 days fluoxetine 20 mg oral tablet 01/17/2016 01/24/2016 take 1 tablet by oral route 2 times a day for 30 days midodrine 5 mg oral tablet 05/21/2016 take 1 tablet by oral route 3 times a day for 30 days Tessalon Perles 100 mg oral capsule 02/07/2016 06/05/2016 take 1 capsule ( 100 mg) by oral route 3 times per day as needed for cough Senna Plus 8.6-50 mg oral tablet 03/26/2016 06/05/2016 take 2 tablets by oral route once daily as needed for constipation Problem List Description Status Onset Nausea Active [...] HC BMI BSA BMI Percentile O2 Sat(%) 06/05/2016 2:37:00 PM 102 mmHg 58 mmHg 53 bpm 12 rpm 99.2 F 118 lbs 99 % 03/26/2016 10:37:00 AM 102 mmHg 64 mmHg 73 bpm 16 rpm 97.7 F 118.5 lbs 63 in 20.9911 kg/m 1.5457 m 98 % 02/07/2016 1:54:00 PM 104 mmHg 54 mmHg 67 bpm 12 rpm 98.3 F 116.75 lbs 63 in 20.68 kg/m2 1.53 m2 98 % 01/30/2016 2:23:00 PM 104 mmHg 62 mmHg 50 bpm 14 rpm 96.9 F 115.5 lbs 63 in 20.4597 kg/m 1.526 m 99 % 01/24/2016 10:45:00 AM 100 mmHg 54 mmHg 42 bpm 12 rpm 96.1 F 112 lbs 98 % 01/17/2016 10:51:00 AM 110 mmHg 62 mmHg 67 bpm 14 rpm 97.1 F 114.75 lbs 63 in 20.3268 kg/m 1.5211 m 100 % 12/20/2015 3:22:00 PM 104 mmHg 58 mmHg 44 bpm 12 rpm 97.7 F 115.5 lbs 63 in 20.46 kg/m2 1.53 m2 100 % 11/24/2015 9:20:00 AM 98 mmHg 60 mmHg 63 bpm 12 rpm 97.2 F 110.5 lbs 63 in 19.574 kg/m 1.4926 m 99 % 11/22/2015 1:41:00 PM 104 mmHg 54 mmHg 66 bpm 12 rpm 97.3 F 110.5 lbs 63 in 19.57 kg/m2 1.49 m2 100 % 11/16/2015 10:46:00 AM 120 mmHg 68 mmHg 55 bpm 12 rpm 97.3 F 110.5 lbs 63 in 19.574 kg/m 1.4926 m 98 % 11/01/2015 9:37:00 AM 98 mmHg 58 mmHg 59 bpm 12 rpm 96.6 F 114.25 lbs 98 % 08/29/2015 10:14:00 AM 106 mmHg 54 mmHg 59 bpm 18 rpm 97.2 F 115.5 lbs 63 in 20.4597 kg/m 1.526 m 99 % 08/07/2015 2:23:00 PM 102 mmHg 62 mmHg 57 bpm 20 rpm 97.1 F 119 lbs 63 in 21.08 kg/m2 1.55 m2 99 % 07/04/2015 10:29:00 AM 59 bpm 20 rpm 98.6 F 121.5 lbs 63 in 21.5225 kg/m 1.5652 m 100 % 05/24/2015 9:19:00 AM 112 mmHg 45 mmHg 50 bpm 97.4 F 120 lbs 63 in 21.26 kg/m2 1.56 m2 05/09/2015 3:50:00 PM 119 mmHg 33 mmHg 50 bpm 98.3 F 116 lbs 63 in 20.5483 kg/m 1.5293 m 05/05/2015 10:52:00 AM 110 mmHg 70 mmHg 63 bpm 16 rpm 97.1 F 115 lbs 63 in 20.37 kg/m2 1.52 m2 98 % 04/21/2015 10:58:00 AM 124 mmHg 60 mmHg 73 bpm 18 rpm 97.7 F 110.5 lbs 63 in 19.574 kg/m 1.4926 m 100 % 04/10/2015 3:11:00 PM 112 mmHg 58 mmHg 58 bpm 16 rpm 98.1 F 108 lbs 63 in 19.13 kg/m2 1.48 m2 96 % 02/28/2015 9:55:00 AM 108 mmHg 70 mmHg 78 bpm 16 rpm 97 F 109 lbs 63 in 19.3083 kg/m 1.4825 m 11/07/2014 10:24:00 AM 113 mmHg 43 mmHg 41 bpm 98.1 F 106 lbs 63 in 18.78 kg/m2 1.46 m2 09/29/2014 10:33:00 AM 101 mmHg 43 mmHg 43 bpm 97.8 F 106.25 lbs 63 in 18.8211 kg/m 1.4636 m 09/13/2014 3:04:00 PM 102 mmHg 78 mmHg 60 bpm 20 rpm 103.375 lbs 63 in 18.31 kg/m2 1.44 m2 08/09/2014 1:53:00 PM 133 mmHg 87 mmHg 71 bpm 18 rpm 98.2 F 102 lbs 63 in 18.0683 kg/m 1.4341 m 07/22/2014 2:39:00 PM 122 mmHg 52 mmHg 53 bpm 16 rpm 97.9 F 113.312 lbs 63 in 20.07 kg/m2 1.51 m2 03/28/2014 11:46:00 AM 114 mmHg 63 mmHg 88 bpm 98.2 F 124.25 lbs 63 in 22.0097 kg/m 1.5828 m 03/09/2014 11:02:00 AM 122 mmHg 64 mmHg 61 bpm 18 rpm 96.8 F 124 lbs 63 in 21.97 kg/m2 1.58 m2 99 % 03/03/2014 1:58:00 PM 127 mmHg 80 mmHg 93 bpm 97.5 F 129.25 lbs 63 in 22.8954 kg/m 1.6143 01/12/2014 4:41:00 PM 129 mmHg 75 mmHg 77 bpm 97.7 F 141.375 lbs 63 in 25.04 kg/m2 1.69 m2 Social History Name Description Comments Tobacco Current [...] 05/31/2015 12:00 AM US EXAM PELVIC COMPLETE Reviewed 05/24/2015 10:16 AM URINE TEST Reviewed 04/19/2015 12:00 AM ASSAY OF GGT Reviewed 08/07/2015 12:00 AM GENERAL HEALTH PANEL Reviewed 08/07/2015 12:00 AM ECG MONIT/REPRT UP TO 48 HRS Reviewed 11/01/2015 12:00 AM SPECIMEN HANDLING OFFICE-LAB Reviewed [...] lower quadrant pain Mar 26 2016 10:40AM Depression with anxiety Jun 05 2016 2:39PM Payers Insurance Name Company Name Plan Name Plan Number Policy Number Policy Group Number Start Date [id number]/A [facility] Comm Plan of [id number] N/A History of Encounters Visit Date Visit Type Provider 06/05/2016 Office visit Jeri BISWAS 03/26/2016 Office visit Jeri BISWAS 02/07/2016 Office visit Jeri BISWAS 01/30/2016 Office visit Jeri BISWAS 01/24/2016 Office visit Jeri BISWAS 01/17/2016 Office visit Jeri BISWAS 12/20/2015 Office visit Jeri BISWAS 11/24/2015 Office visit Jeri BISWAS 11/22/2015 Office visit Jeri IBSWAS 11/20/2015 Hospital Ysabel Chi MD 11/19/2015 [facility] Ysabel Chi MD 11/16/2015 Office visit Jeri RUSSP 11/01/2015 Hospital Ysabel Chi MD 11/01/2015 Office visit Jeri RUSSP 10/26/2015 Hospital Ysabel Chi MD 08/29/2015 Office visit Jeri Stinson FEATHER SEPARATOR 08/07/2015 Office visit Jeri Stinson FEATHER SEPARATOR 07/04/2015 Office visit Jeri RUSSP 06/18/2015 Hospital Ysabel Chi MD 05/24/2015 Office visit 05/24/2015 Office visit Micky Rider MD 05/09/2015 Office visit Karen Diane MANAGER RETIREMENT 05/05/2015 Office visit Jeri Stinson FEATHER SEPARATOR 04/21/2015 Office visit Jeri RUSSP 04/20/2015 Laboratory Jeri Stinson FEATHER SEPARATOR 04/11/2015 Laboratory Jeri RUSSP 04/10/2015 Office visit Jeri Stinson FEATHER SEPARATOR 02/28/2015 Office visit Kenneth Motta DO 11/07/2014 Office visit 11/07/2014 Office visit Karen Diane MANAGER RETIREMENT 09/29/[address] JULY CHAVEZ MD 09/13/2014 Office visit Karen Diane MANAGER RETIREMENT 08/09/2014 Office visit Kenneth Motta DO 07/28/2014 [facility] Kenneth Motta DO 07/22/2014 Office visit 07/22/2014 Office visit Kenneth Motta DO 06/04/2014 [facility] Ysabel Chi MD 03/28/2014 Office visit Vijay León MD 03/15/2014 [facility] Vijay León MD 03/09/2014 Office visit Dimitry García MD 03/03/2014 Surgery Vijay León MD 01/30/2014 [facility] Vijay León MD 01/27/2014 Office visit Vijay León MD 01/27/2014 [facility] Vijay León MD 01/26/2014 Office visit Vijay León MD 01/26/2014 [facility] Vijay León MD 01/12/2014 Office visit Vijay León MD 01/12/2014 [facility] Vijay León MD 01/07/2014 [facility] Vijay León MD
--- OUTSIDE RECORDS SUMMARY | 2017-02-28 00:58 | XMS REPORT ---
Author Author Jeri Stinson [facility] Address [address] [place], [place] [id number] Care Team Providers Care Burn Out Scarfing Operator Name Role Phone Jeri Stinson PCP Allergies and Adverse Reactions Name Reaction Notes SULFA (SULFONAMIDES) Itching Plan of Treatment Planned Activity Comments Planned Date Planned Time Plan/Goal COMPLETE CBC W/AUTO DIFF WBC 04/11/2015 12:00 AM COMPREHEN METABOLIC PANEL 04/11/2015 12:00 AM ASSAY THYROID STIM HORMONE 04/11/2015 12:00 AM ELECTROCARDIOGRAM COMPLETE 08/07/2015 12:00 AM Medications Active Name Start Date Estimated Completion [...] not exceed 30 mg in 24 hours Protonix 40 mg oral tablet,delayed release (DR/EC) 07/04/2015 09/02/2015 take 1 tablet by oral route daily for 30 days Prozac 20 mg oral capsule 07/04/2015 12/01/2015 take 1 capsule (20 mg) by oral route once daily for 30 days Name Start Date Expiration Date SIG Comments [...] meals and at bedtime for 30 days Ultram 50 mg oral tablet 07/04/2015 07/11/2015 take 1 tablet (50 mg) by oral route every 4-6 hours as needed for 7 days Discontinued Name Start Date [...] tablet (150 mg) by oral route once Problem List Description Status Onset Nausea Active 07/22/2014 Diarrhea Active 07/22/2014 Rectal bleeding Active 07/22/2014 Weight loss Active 07/22/2014 GERD (gastroesophageal reflux disease) Active 07/22/2014 Dyspepsia Active 03/07/2015 IBS (irritable bowel syndrome) Active 03/07/2015 Vital Signs Date Time BP-Sys(mm[Hg] BP-Sofia(mm[Hg]) HR(bpm) RR(rpm) Temp WT HT HC BMI BSA BMI Percentile O2 Sat(%) 08/29/2015 10:14:00 AM 106 mmHg 54 mmHg 59 bpm 18 rpm 97.2 F 115.5 lbs 63 in 20.46 kg/m2 1.53 m2 99 % 08/07/2015 2:23:00 PM 102 mmHg 62 mmHg 57 bpm 20 rpm 97.1 F 119 lbs 63 in 21.0797 kg/m 1.549 m 99 % 07/04/2015 10:29:00 AM 59 bpm 20 rpm 98.6 F 121.5 lbs 63 in 21.52 kg/m2 1.57 m2 100 % 05/24/2015 9:19:00 AM 112 mmHg 45 mmHg 50 bpm 97.4 F 120 lbs 63 in 21.2568 kg/m 1.5555 m 05/09/2015 3:50:00 PM 119 mmHg 33 mmHg 50 bpm 98.3 F 116 lbs 63 in 20.55 kg/m2 1.53 m2 05/05/2015 10:52:00 AM 110 mmHg 70 mmHg 63 bpm 16 rpm 97.1 F 115 lbs 63 in 20.3711 kg/m 1.5227 m 98 % 04/21/2015 10:58:00 AM 124 mmHg 60 mmHg 73 bpm 18 rpm 97.7 F 110.5 lbs 63 in 19.57 kg/m2 1.49 m2 100 % 04/10/2015 3:11:00 PM 112 mmHg 58 mmHg 58 bpm 16 rpm 98.1 F 108 lbs 63 in 19.1311 kg/m 1.4756 m 96 % 02/28/2015 9:55:00 AM 108 mmHg 70 mmHg 78 bpm 16 rpm 97 F 109 lbs 63 in 19.31 kg/m2 1.48 m2 11/07/2014 10:24:00 AM 113 mmHg 43 mmHg 41 bpm 98.1 F 106 lbs 63 in 18.7769 kg/m 1.4619 m 09/29/2014 10:33:00 AM 101 mmHg 43 mmHg 43 bpm 97.8 F 106.25 lbs 63 in 18.82 kg/m2 1.46 m2 09/13/2014 3:04:00 PM 102 mmHg 78 mmHg 60 bpm 20 rpm 103.375 lbs 63 in 18.3119 kg/m 1.4437 m 08/09/2014 1:53:00 PM 133 mmHg 87 mmHg 71 bpm 18 rpm 98.2 F 102 lbs 63 in 18.07 kg/m2 1.43 m2 07/22/2014 2:39:00 PM 122 mmHg 52 mmHg 53 bpm 16 rpm 97.9 F 113.312 lbs 63 in 20.0722 kg/m 1.5115 m 03/28/2014 11:46:00 AM 114 mmHg 63 mmHg 88 bpm 98.2 F 124.25 lbs 63 in 22.01 kg/m2 1.58 m2 03/09/2014 11:02:00 AM 122 mmHg 64 mmHg 61 bpm 18 rpm 96.8 F 124 lbs 63 in 21.9654 kg/m 1.5812 m 99 % 03/03/2014 1:58:00 PM 127 mmHg 80 mmHg 93 bpm 97.5 F 129.25 lbs 63 in 22.90 kg/m2 1.61 m2 01/12/2014 4:41:00 PM 129 mmHg 75 mmHg 77 bpm 97.7 F 141.375 lbs 63 in 25.0432 kg/m 1.6883 m Social History Name Description Comments Tobacco Current every day smoker Alcohol Current some day Denies illicit substance abuse History of Procedures Date Ordered Description Order Status 04/11/2015 12:13 PM URINALYSIS AUTO W/O SCOPE Reviewed 04/10/2015 12:00 AM GENERAL HEALTH PANEL Returned 04/10/2015 12:00 AM URNLS DIP STICK/TABLET RGNT AUTO W/O MICROSCOPY Returned 04/21/2015 12:[address] THORAX W/DYE Returned 04/21/2015 12:00 AM US EXAM ABDOM COMPLETE Returned 04/21/2015 12:00 AM ACUTE HEPATITIS PANEL Returned 05/09/2015 12:[address] PELVIS W/O & W/DYE Returned 05/09/2015 12:00 AM N.GONORRHOEAE DNA AMP PROB Returned 05/09/2015 12:00 AM CHLAMYDIA CULTURE Returned 05/12/2015 12:[address] ABD & PELV 1/> REGNS Reviewed 05/31/2015 12:00 AM US EXAM PELVIC COMPLETE Returned 05/24/2015 10:16 AM URINE TEST Reviewed 04/19/2015 12:00 AM ASSAY OF GGT Returned 08/07/2015 12:00 AM GENERAL HEALTH PANEL Returned 08/07/2015 12:00 AM ECG MONIT/REPRT UP TO 48 HRS Returned 01/12/2014 12:00 AM CYTOPATH C/V THIN LAYER Reviewed 01/12/2014 12:00 AM SPECIMEN HANDLING OFFICE-LAB Reviewed 01/12/2014 12:00 AM Urine toxicology screen Returned 01/13/2014 12:00 AM UMBILICAL ARTERY ECHO Returned 01/13/2014 12:00 AM OB US LIMITED FETUS(S) Returned 01/26/2014 12:00 AM OB US LIMITED FETUS(S) Returned 01/28/2014 12:00 AM GLUCOSE TOLERANCE TEST (GTT) Returned 03/03/2014 12:00 AM COMPLETE CBC W/AUTO DIFF WBC Returned 03/03/2014 12:00 AM Type and screen Returned 03/09/2014 12:00 AM CYTOPATH TBS C/V MANUAL Returned 03/09/2014 12:00 AM SPECIMEN HANDLING OFFICE-LAB Reviewed 03/09/2014 12:00 AM N.GONORRHOEAE DNA AMP PROB Returned 03/09/2014 12:00 AM CHYLMD TRACH DNA AMP PROBE Returned 07/22/2014 12:00 AM COMPLETE CBC W/AUTO DIFF WBC Reviewed 07/22/2014 12:00 AM COMPREHEN METABOLIC PANEL Reviewed 07/22/2014 12:00 AM ASSAY OF LIPASE Reviewed 07/22/2014 12:00 AM ECHO EXAM OF ABDOMEN Returned 07/22/2014 12:00 AM HEPATOBILIARY SYSTEM IMAGING Reviewed 07/22/2014 12:00 AM ASSAY OF AMYLASE Reviewed 09/13/2014 12:00 AM US EXAM PELVIC COMPLETE Reviewed 09/13/2014 12:00 AM TRANSVAGINAL US NON-OB Reviewed 09/13/2014 12:00 AM US EXAM PELVIC COMPLETE Returned 09/13/2014 12:00 AM US EXAM PELVIC LIMITED Returned 09/29/2014 10:43 AM URINE TEST Reviewed 09/29/2014 12:00 AM BX/CURETT OF CERVIX W/SCOPE Returned 11/14/2014 12:00 AM US EXAM PELVIC COMPLETE Returned 11/07/2014 12:00 AM COMPLETE CBC W/AUTO DIFF WBC Returned 11/07/2014 12:00 AM COMPREHEN METABOLIC PANEL Returned 11/07/2014 12:00 AM RBC SED RATE AUTOMATED Returned 11/07/2014 12:00 AM C-REACTIVE PROTEIN Returned 11/07/2014 12:00 AM IMMUNOASSAY TUMOR CA 125 Returned 11/07/2014 12:00 AM US EXAM PELVIC COMPLETE Reviewed 11/07/2014 12:00 AM HEPATITIS C AB TEST Returned 11/07/2014 12:00 AM HEPATITIS B SURFACE AG EIA Returned Results Summary Data and Description Results 01/06/2014 11:15 PM AMNISURE ROM NEGATIVE 01/07/2014 3:15 AM COLOR YELLOW APPEARANCE HAZY SPEC GRAV >=1.030 pH 6.0 PROTEIN NEGATIVE GLUCOSE NEGATIVE KETONE NEGATIVE BILIRUBIN NEGATIVE BLOOD NEGATIVE NITRITE NEGATIVE LEUK SCREEN SMALL CASTS/LPF NEGATIVE CRYSTALS NEGATIVE MUCOUS THRDS 2++ BACTERIA 1+ EPITH CELLS 1+ SQUAMOUS TRICHOMONAS NEGATIVE YEAST NEGATIVE Cannabinoids (THC) NEGATIVE Phencyclidine (PCP) NEGATIVE Cocaine NEGATIVE Methamphetamine NEGATIVE Opiates NEGATIVE Amphetamine NEGATIVE Benzodiazepines NEGATIVE Methadone NEGATIVE Barbiturates NEGATIVE Oxycodone NEGATIVE Propoxyphene (PPX) NEGATIVE 01/07/2014 8:40 AM WBC 8.2 RBC 3.58 HGB 11.0 g/dLHCT 32.10 %MCV 90.0 fLMCH 30.70 pgMCHC 34.30 g/dLRDW CV 13.80 %MPV 11.30 fLPLT 132 %NEUT 66.70 %%LYMP 22.20 %%MONO 9.90 %%EOS 1.0 %%BASO 0.20 %#NEUT 5.46 #LYMP 1.82 #MONO 0.81 #EOS 0.08 #BASO 0.02 GLUCOSE 75.0 mg/dLSODIUM 135.0 mmol/LPOTASSIUM 3.80 mmol/ LCHLORIDE 106.0 mmol/LCO2 20.0 mmol/LBUN 8.0 mg/dLCREATININE 0.60 mg/dLSGOT/AST 12.0 IU/LSGPT/ALT 7.0 IU/LALK PHOS 149.0 IU/LTOTAL PROTEIN 5.80 g/dLALBUMIN 3.0 g/dLTOTAL BILI 0.70 mg/dLCALCIUM 8.90 mg/dLeGFR 60 01/20/2014 2:57 PM Cannabinoids (THC) NEGATIVE Phencyclidine (PCP) NEGATIVE Cocaine NEGATIVE Methamphetamine NEGATIVE Opiates NEGATIVE Amphetamine NEGATIVE Benzodiazepines NEGATIVE Methadone NEGATIVE Barbiturates NEGATIVE Oxycodone NEGATIVE Propoxyphene (PPX) NEGATIVE COLOR YELLOW APPEARANCE CLEAR SPEC GRAV 1.010 pH 6.5 PROTEIN NEGATIVE GLUCOSE NEGATIVE KETONE NEGATIVE BILIRUBIN NEGATIVE BLOOD NEGATIVE NITRITE NEGATIVE LEUK SCREEN NEGATIVE CASTS/LPF NEGATIVE CRYSTALS NEGATIVE MUCOUS THRDS NEGATIVE BACTERIA NEGATIVE EPITH CELLS FEW SQUAMOUS TRICHOMONAS NEGATIVE YEAST NEGATIVE 01/26/2014 11:15 AM AMNISURE ROM NEGATIVE 01/29/2014 6:34 PM AMNISURE ROM NEGATIVE 01/29/2014 8:25 PM HIV AG/AB COMBO 0.10 WBC 10.1 RBC 3.84 HGB 11.50 g/dLHCT 33.80 %MCV 88.0 fLMCH 29.90 pgMCHC 34.0 g/dLRDW CV 13.60 %MPV 11.70 fLPLT 136 % NEUT 74.90 %%LYMP 17.80 %%MONO 6.60 %%EOS 0.50 %%BASO 0.20 %#NEUT 7.57 #LYMP 1.80 #MONO 0.67 #EOS 0.05 #BASO 0.02 01/31/2014 6:30 AM WBC 9.8 RBC 3.51 HGB 10.50 g/dLHCT 31.50 %MCV 90.0 fLMCH 29.90 pgMCHC 33.30 g/dLRDW CV 13.70 %MPV 11.30 fLPLT 124 03/14/2014 4:40 PM WBC 5.8 RBC 4.57 HGB 13.70 g/dLHCT 41.10 %MCV 90.0 fLMCH 30.0 pgMCHC 33.30 g/dLRDW CV 12.70 %MPV 10.20 fLPLT 180 %NEUT 69.30 %%LYMP 19.80 %%MONO 9.60 %%EOS 1.0 %%BASO 0.30 %#NEUT 4.03 #LYMP 1.15 #MONO 0.56 #EOS 0.06 #BASO 0.02 03/15/2014 6:42 AM TEST UR NEGATIVE 09/29/2014 11:34 AM Test, Urine negative 11/07/2014 11:10 AM GLUCOSE 84.0 mg/dLSODIUM 140.0 mmol/LPOTASSIUM 3.70 mmol/ LCHLORIDE 103.0 mmol/LCO2 29.0 mmol/LBUN 12.0 mg/dLCREATININE 0.80 mg/dLSGOT/ AST 65.0 IU/LSGPT/ALT 92.0 IU/LALK PHOS 168.0 IU/LTOTAL PROTEIN 7.60 g/ dLALBUMIN 4.70 g/dLTOTAL BILI 0.60 mg/dLCALCIUM 9.80 mg/dLeGFR >60 mL/min/1.73m C REACTIVE PROTEIN <0.5 mg/LWBC 5.4 RBC 4.41 HGB 13.0 g/dLHCT 39.90 %MCV 91.0 fLMCH 29.50 pgMCHC 32.60 g/dLRDW CV 13.70 %MPV 10.90 fLPLT 237 %NEUT 58.90 %% LYMP 32.80 %%MONO 6.80 %%EOS 0.90 %%BASO 0.60 %#NEUT 3.19 #LYMP 1.78 #MONO 0.37 #EOS 0.05 #BASO 0.03 SEDRATE 5.0 mm/hrCancer Antigen (CA) 125 7.0 U/mL 11/07/2014 5:16 PM Hep A Ab, IgM Negative HBsAg Screen Negative Hep B Core Ab, IgM Negative Hep B Surface Ab, Qual Reactive Index Value 04/11/2015 12:13 PM Clarity Ur clear Color [...] dLALBUMIN 4.50 g/dLTOTAL BILI 0.50 mg/dLCALCIUM 9.20 mg/dLeGFR >60 mL/min/1.73m TSH 0.40 uIU/mLWBC 5.1 RBC 4.40 HGB 13.10 g/dLHCT 40.50 %MCV 92.0 fLMCH 29.80 pgMCHC 32.30 g/dLRDW CV 13.30 %MPV 11.50 fLPLT 213 %NEUT 55.40 %%LYMP 34.20 %% MONO 8.40 %%EOS 1.20 %%BASO 0.80 %#NEUT 2.85 #LYMP 1.76 #MONO 0.43 #EOS 0.06 # BASO 0.04 COLOR YELLOW APPEARANCE CLEAR SPEC GRAV 1.015 pH 6.5 PROTEIN NEGATIVE GLUCOSE NEGATIVE mg/dLKETONE NEGATIVE BILIRUBIN NEGATIVE BLOOD NEGATIVE NITRITE NEGATIVE LEUK SCREEN NEGATIVE 05/02/2015 11:30 AM Hep A Ab, IgM Negative HBsAg Screen Negative Hep B Core Ab, IgM Negative 05/24/2015 10:26 AM Test, Urine negative 08/07/2015 2:30 PM WBC 6.6 RBC 4.09 HGB 11.90 g/dLHCT 37.30 %MCV 91.0 fLMCH 29.10 pgMCHC 31.90 g/dLRDW CV 12.60 %MPV 12.0 fLPLT 188 %NEUT 65.30 %%LYMP 27.60 %%MONO 5.20 %%EOS 1.10 %%BASO 0.60 %#NEUT 4.28 #LYMP 1.81 #MONO 0.34 #EOS 0.07 #BASO 0.04 GLUCOSE 90.0 mg/dLSODIUM 139.0 mmol/LPOTASSIUM 3.80 mmol/ LCHLORIDE 105.0 mmol/LCO2 25.0 mmol/LBUN 10.0 mg/dLCREATININE 0.80 mg/dLSGOT/ AST 20.0 IU/LSGPT/ALT 20.0 IU/LALK PHOS 109.0 IU/LTOTAL PROTEIN 6.40 g/ dLALBUMIN 4.30 g/dLTOTAL BILI 0.30 mg/dLCALCIUM 9.30 mg/dLeGFR >60 mL/min/1.73m TSH 0.430 uIU/mL History Of Immunizations Not available. History of Past Illness Name Date of Onset Comments Shortness of breath Headache Head Injury, Closed at age 16 Nausea 07/22/2014 Diarrhea 07/22/2014 Rectal bleeding 07/22/2014 Weight loss 07/22/2014 GERD (gastroesophageal reflux disease) 07/22/2014 Irregular Heartbeat Heart murmur Dyspepsia 03/07/2015 IBS (irritable bowel syndrome) 03/07/2015 Care, High Risk Jan 12 2014 4:42PM [...] (gastroesophageal reflux disease) Aug 29 2015 10:16AM Payers Insurance Name Company Name Plan Name Plan Number Policy Number Policy Group Number Start Date [facility] - Community [facility] Comm [id number] N/A [facility] Comm Plan of [id number] N/A History of Encounters Visit Date Visit Type Provider 08/29/2015 Office visit Jeri BISWAS 08/07/2015 Office visit Jeri BISWAS 07/04/2015 Office visit Jeri BISWAS 06/18/2015 Hospital Ysabel Chi MD 05/24/2015 Office visit 05/24/2015 Office visit Micky Rider MD 05/09/2015 Office visit Karen Diane SOLUTIONS DEVELOPER 05/05/2015 Office visit Jeri BISWAS 04/21/2015 Office visit Jeri BISWAS 04/20/2015 Laboratory Jeri BISWAS 04/11/2015 Laboratory Jeri BISWAS 04/10/2015 Office visit Jeri BISWAS 02/28/2015 Office visit Kenneth Motta DO 11/07/2014 Office visit 11/07/2014 Office visit Karen Diane SOLUTIONS DEVELOPER 09/29/[address] JULY CHAVEZ MD 09/13/2014 Office visit Karen Diane SOLUTIONS DEVELOPER 08/09/2014 Office visit Kenneth Motta DO 07/28/2014 Hospital Kenneth Motta DO 07/22/2014 Office visit 07/22/2014 Office visit Kenneth Motta DO 06/04/2014 Hospital Ysabel Chi MD 03/28/2014 Office visit Vijay León MD 03/15/2014 Hospital Vijay León MD 03/09/2014 Office visit Dimitry García MD 03/03/2014 Surgery Vijay León MD 01/30/2014 Hospital Vijay León MD 01/27/2014 Office visit Vijay León MD 01/27/2014 [facility] Vijay León MD 01/26/2014 Office visit Vijay León MD 01/26/2014 [facility] Vijay León MD 01/12/2014 Office visit Vijay León MD 01/12/2014 [facility] Vijay León MD 01/07/2014 [facility] Vijay León MD
--- OUTSIDE RECORDS SUMMARY | 2017-02-28 00:58 | XMS REPORT ---
Author Author Kenneth Motta [facility] Address [address] [facility] [address] [place], [place] [address] Care Team Providers Care Traffic Manager Name Role Phone Kenneth Motta PCP Unavailable Allergies and Adverse Reactions Name Reaction Notes SULFA (SULFONAMIDES) Itching Plan of Treatment Not available. Medications Active Name Start Date Estimated Completion Date SIG Comments Reglan 10 mg oral tablet take 1 tablet (10 mg) by oral route 4 times per day 30 minutes before meals and at bedtime aspirin 81 mg oral tablet,chewable chew 1 tablet (81 mg) by oral route once daily ibuprofen 800 mg oral tablet Take 1 tab PO every 6 hours PRN Name Start Date Expiration Date SIG Comments [...] route every 12 hours for 7 days Discontinued Name Start Date [...] Nausea Active 07/22/2014 Diarrhea Active 07/22/2014 Rectal Bleeding Active 07/22/2014 weight loss Active 07/22/2014 GERD (gastroesophageal reflux disease) Active 07/22/2014 Dyspepsia Active 03/07/2015 IBS (irritable bowel syndrome) Active 03/07/2015 Vital Signs Date Time BP-Sys(mm[Hg] BP-Sofia(mm[Hg]) HR(bpm) RR(rpm) Temp WT HT HC BMI BSA BMI Percentile O2 Sat(%) 02/28/2015 9:55:00 AM 108 mmHg 70 mmHg [...] of Procedures Date Ordered Description Order Status 01/12/2014 12:00 AM CYTOPATH C/V THIN LAYER [...] B Surface Ab, Qual Reactive Index Value History Of Immunizations Not available. History of Past Illness Name Date of Onset Comments Shortness of breath Headache Head Injury, Closed at age 16 Nausea 07/22/2014 Diarrhea 07/22/2014 Rectal Bleeding 07/22/2014 weight loss 07/22/2014 GERD (gastroesophageal reflux disease) 07/22/2014 [...] (irritable bowel syndrome) Feb 28 2015 10:18AM Payers Insurance Name Company Name Plan Name Plan Number Policy Number Policy Group Number Start Date [facility] - Community Plan [facility] Comm [id number] N/A [facility] Comm Plan of [id number] N/A History of Encounters Visit Date Visit Type Provider 02/28/2015 Office visit Kenneth Motta DO 11/07/2014 Office visit Karen Diane CART ATTENDANT 09/29/[address] JULY CHAVEZ MD 09/13/2014 Office visit Karen Diane CART ATTENDANT 08/09/2014 Office visit Kenneth Motta DO 07/28/2014 [facility] Kenneth Motta DO 07/22/2014 Office visit Kenneth Motta DO 06/04/2014 Sonia Chi MD 03/28/2014 Office visit Vijay León [...]
--- OUTSIDE RECORDS SUMMARY | 2017-02-28 00:58 | XMS REPORT | CCD ---
Author Author ALEXIS ROTHMAN Unknown Address [address] [address] [place] [address] Care Team Providers Care Instructional Writer Name Role Phone MIRTA RUDOLPH, CHAU Auguste Attphyfarhad MIRTA RUDOLPH, CHAU Leonsusonia Allergies Allergy Code Allergy Type Reaction Status No Known Drug Allergies 0 Drug allergy Active Active Medications Medication Code Dose Units Frequency Route Modification Start Date/Time Acetaminophen/Codeine 300MG-30MG Oral Tablet 538211 1 TABLET NEEDED EVERY 6 HR BY MOUTH 02/01/2014 08 :57 Prescription Detail 1 TABLET BY MOUTH NEEDED EVERY 6 HR Ibuprofen 800MG Oral Tablet 417058 800 MILLIGRAMS NEEDED EVERY 8 HR BY MOUTH 02/01/2014 08:57 Prescription Detail 800 MILLIGRAMS BY MOUTH NEEDED EVERY 8 HR Oral Tablet 877427 1 EACH DAILY ORAL 02/01/2014 08:57 Prescription Detail 1 EACH ORAL DAILY Problems Problem Code Start Date Resolved Date Status Vaginal delivery 224833388 Active Female sterilization 85586940 Active Procedures Procedure Code Procedure Type Date ABDOMEN 2 VIEW DECUB/UPRIGHT 866820808 SNOMED CT 2015 C REACTIVE PROTEIN 27534407 SNOMED CT 03/23/2016 COMPREHENSIVE METABOLIC PANEL 996664460 SNOMED CT 2015 CBC W/ AUTO DIFF (RFLX MAN DIFF IF IND) 5883061 SNOMED CT 03/23/2016 UA ROUTINE C&S IF IND 297238704 SNOMED CT 03/23/2016 TEST URINE 726368581 SNOMED CT 03/23/2016 ^CBC W/AUTO DIFF 9949771 SNOMED CT 03/23/2016 ^UA AUTO DIPSTICK ONLY 515997085 SNOMED CT 03/23/2016 Results COMPREHENSIVE METABOLIC PANEL - Collect Date/Time: 03/23/2016 01:30 Test Name Code Test Result Test Units Test Ref Range GLUCOSE 2345-7 104 MG/DL L=70 H=100 SODIUM 2951-2 140 MEQ/L L=135 H=148 POTASSIUM 2823-3 3.2 MEQ/L L=3.5 H=5.3 CHLORIDE 2075-0 102 MEQ/L L=96 H=110 CO2 2028-9 27 MEQ/L L=22 H=29 BUN 3094-0 9 MG/DL L=8 H=22 CREATININE 2160-0 0.8 MG/DL L=0.6 H=1.6 SGOT/AST 1920-8 25 IU/L L=10 H=40 SGPT/ALT 1742-6 20 IU/L L=8 H=54 ALK PHOS 6768-6 93 IU/L L=35 H=115 TOTAL PROTEIN 2885-2 7.7 G/DL L=5.5 H=8.5 ALBUMIN 1751-7 4.5 G/DL L=3.1 H=5.4 TOTAL BILI 1975-2 0.5 MG/DL L=0.0 H=1.5 CALCIUM 08210-9 9.4 MG/DL L=8.2 H=10.6 AGE 30 yrs GFR NonAA 84 GFR AA 102 eGFR >60 N/A eGFR AA* >60 N/A CBC W/ AUTO DIFF (RFLX MAN DIFF IF IND) - Collect Date/Time: 03/23/2016 01:30 Test Name Code Test Result Test Units Test Ref Range WBC 75512-7 6.6 TH/CMM L=4.5 H=10.8 RBC 789-8 4.35 ML/CMM L=4.20 H=5.40 HGB 718-7 11.9 G/DL L=12.0 H=16.0 HCT 4544-3 37.3 % L=37.0 H=47.0 MCV 86 FL L=81 H=99 MCH 27.4 PG L=27.0 H=33.0 MCHC 31.9 G/DL L=31.0 H=36.0 RDW SD 47 FL L=36 H=50 RDW CV 14.9 % L=0.0 H=14.8 MPV 10.4 FL L=9.3 H=12.5 PLT 777-3 261 TH/CMM L=130 H=440 NRBC# 0.00 TH/CMM L=0.00 H=0.00 NRBC% 0.0 /100WBC L=0.0 H=2.0 %NEUT 55.4 % %LYMP 33.6 % %MONO 8.4 % %EOS 1.8 % %BASO 0.6 % #NEUT 3.63 TH/CMM L=2.10 H=8.20 #LYMP 2.20 TH/CMM L=0.90 H=5.20 #MONO 0.55 TH/CMM L=0.16 H=1.00 #EOS 0.12 TH/CMM L=0.00 H=0.80 #BASO 0.04 TH/CMM L=0.00 H=0.20 MANUAL DIFF NOT IND N/A UA ROUTINE C&S IF IND - Collect Date/Time: 03/23/2016 01:03 Test Name Code Test Result Test Units Test Ref Range COLOR YELLOW N/A NL: YELLOW APPEARANCE CLEAR N/A NL: CLEAR SPEC GRAV <=1.005 N/A NL: 1.002 - 1.022 pH 6.0 N/A NL: 5 - 9 PROTEIN NEGATIVE N/A NL: NEGATIVE mg/dl GLUCOSE NEGATIVE N/A NL: NEGATIVE mg/dl KETONE NEGATIVE N/A NL: NEGATIVE mg/dl BILIRUBIN NEGATIVE N/A NL: NEGATIVE BLOOD NEGATIVE N/A NL: NEGATIVE NITRITE NEGATIVE N/A NL: NEGATIVE LEUK SCREEN NEGATIVE N/A NL: NEGATIVE MICRO INDICATED? NOT INDICATED N/A C REACTIVE PROTEIN - Collect Date/Time: 03/23/2016 01:30 Test Name Code Test Result Test Units Test Ref Range C REACTIVE PROTEIN 1988-5 0.1 MG/DL L=0.0 H= 1.0 TEST URINE - Collect Date/Time: 03/23/2016 01:03 Test Name Code Test Result Test Units [...] Date End Date Current every day smoker 259360435 Vital Signs Unknown or Not Available. Function Status Unknown or Not Available. Goals Unknown or Not Available. ASSESSMENTS Unknown or Not Available. Health Concerns Section Unknown or Not Available.
--- OUTSIDE RECORDS SUMMARY | 2017-02-28 00:59 | XMS REPORT ---
Author Micky Kaiser [facility] Address [address] [facility] [address] [place], [place] [address] Care Team Providers Care Produce Laborer Name Role Phone Micky Rider PCP Unavailable Allergies and Adverse Reactions Name Reaction Notes SULFA (SULFONAMIDES) Itching Plan of Treatment Planned Activity Comments Planned Date Planned Time Plan/Goal US EXAM PELVIC COMPLETE 05/31/2015 12:00 AM Medications Active Name Start Date Estimated Completion Date SIG Comments aspirin 81 mg oral tablet,chewable chew 1 tablet (81 mg) by oral route once daily Prozac 20 mg oral capsule take 1 capsule (20 mg) by oral route once daily ranitidine HCl 300 mg oral tablet take 1 tablet (300 mg) by oral route 2 times per day Reglan 10 mg oral tablet 04/27/2015 05/27/2015 take 1 tablet (10 mg) by oral route 4 times per day 30 minutes before meals and at bedtime for 30 days Maxalt 10 mg oral tablet 05/05/2015 take 1 tablet (10 mg) by oral route once, may repeat at 2 hour intervals; do not exceed 30 mg in 24 hours Protonix 40 mg oral tablet,delayed release (DR/EC) 05/18/2015 07/13/2015 take 1 tablet (40 mg) by oral route once daily for 8 weeks Name Start Date Expiration Date SIG Comments [...] 1 tab PO every 6 hours PRN Ultram 50 mg oral tablet 05/09/2015 05/16/2015 take 1 tablet (50 mg) by oral [...] Diarrhea Active 07/22/2014 Rectal bleeding Active 07/22/2014 weight loss Active 07/22/2014 GERD (gastroesophageal reflux disease) Active 07/22/2014 Dyspepsia Active 03/07/2015 IBS (irritable bowel syndrome) Active 03/07/2015 Vital Signs Date Time BP-Sys(mm[Hg] BP-Sofia(mm[Hg]) HR(bpm) RR(rpm) Temp WT HT HC BMI BSA BMI Percentile O2 Sat(%) 05/24/2015 9:19:00 AM 112 mmHg 45 mmHg [...] 129.25 lbs 63 in 22.8954 kg/m 1.6143 m 01/12/2014 4:41:00 PM 129 mmHg 75 mmHg 77 bpm 97.7 F 141.375 lbs 63 in 25.04 kg/m2 1.69 m2 Social History Name Description Comments Tobacco Current every day smoker Alcohol Current some day Denies illicit substance abuse History of Procedures Date Ordered Description Order Status 04/11/2015 12:13 PM URINALYSIS AUTO W/O SCOPE Reviewed 04/19/2015 12:00 AM ASSAY OF GGT Returned 04/10/2015 12:00 AM GENERAL HEALTH PANEL Returned [...] CT ABD & PELV 1/> REGNS Reviewed 05/24/2015 10:16 AM URINE TEST Reviewed 01/12/2014 12:00 AM CYTOPATH C/V [...] Negative Hep B Core Ab, IgM Negative History Of Immunizations Not available. History of Past Illness Name Date of Onset Comments Shortness of breath Headache Head Injury, Closed at age 16 Nausea 07/22/2014 Diarrhea 07/22/2014 Rectal bleeding 07/22/2014 weight loss 07/22/2014 GERD (gastroesophageal reflux [...] pain in female May 24 2015 10:15AM Payers Insurance Name Company Name Plan Name Plan Number Policy Number Policy Group Number Start Date [facility] - [facility] - Community [facility] Comm [id number] N/A [facility] Plan [facility] Comm Plan of [id number] N/A History of Encounters Visit Date Visit Type Provider 05/24/2015 Office visit Micky Rider MD 05/09/2015 Office visit Karen Diane SALESPERSON HANDBAGS 05/05/2015 Office visit Jeri BISWAS 04/21/2015 Office visit Jeri BISWAS 04/20/2015 Laboratory Jeri RUSSP 04/11/2015 Laboratory Jeri Stinson MILLER HEAD 04/10/2015 Office visit Jeri Stinson MILLER HEAD 02/28/2015 Office visit Kenneth Motta DO 11/07/2014 Office visit 11/07/2014 Office visit Karen Diane SALESPERSON HANDBAGS 09/29/[address] JULY CHAVEZ MD 09/13/2014 Office visit Karen Diane SALESPERSON HANDBAGS 08/09/2014 Office visit Kenneth Motta DO 07/28/2014 Hospital Kenneth Motta DO 07/22/2014 Office visit 07/22/2014 Office visit Kenneth Motta DO 06/04/2014 [facility] Ysabel Chi MD 03/28/2014 Office visit Vijay León MD 03/15/2014 [facility] Vijay León MD 03/09/2014 Office visit Dimitry García MD 03/03/2014 Surgery Vijay León MD 01/30/2014 [facility] Vijay León MD 01/27/2014 Office visit Vijay León MD 01/27/2014 [facility] Vijay León MD 01/26/2014 Office visit Vijay León MD 01/26/2014 [facility] Vijay León MD 01/12/2014 Office visit Vijay León MD 01/12/2014 [facility] Vijay León MD 01/07/2014 [facility] Vijay León MD
--- OUTSIDE RECORDS SUMMARY | 2017-02-28 01:00 | XMS REPORT ---
Author Author Jeri Stinson [facility] Address [address] [place], [place] [address] Care Team Providers Care Uc Architect Name Role Phone Jeri Stinson PCP Allergies and Adverse Reactions Name Reaction Notes SULFA (SULFONAMIDES) Itching Plan of Treatment Planned Activity Comments Planned Date Planned Time Plan/Goal COMPLETE CBC W/AUTO DIFF WBC 04/11/2015 12:00 AM COMPREHEN METABOLIC PANEL 04/11/2015 12:00 AM ASSAY THYROID STIM HORMONE 04/11/2015 12:00 AM ELECTROCARDIOGRAM COMPLETE 08/07/2015 12:00 AM IRON BINDING TEST 11/01/2015 12:00 AM Medications Active Name Start Date [...] triamcinolone acetonide 0.025 % topical cream 11/16/2015 apply to affected area(s) by topical route 2 times a day as needed for itching Prozac 20 mg oral capsule 2015 04/21/2016 take 1 capsule (20 mg) by oral route once daily in the morning for 30 days Name Start Date Expiration [...] by oral route daily for 30 days Problem List Description Status [...] HC BMI BSA BMI Percentile O2 Sat(%) 11/22/2015 1:41:00 PM 104 mmHg 54 mmHg [...] TO 48 HRS Returned 11/01/2015 12:00 AM COMPLETE CBC W/AUTO DIFF WBC Returned 11/01/2015 12:00 AM COMPREHEN METABOLIC PANEL Returned 11/01/2015 12:00 AM ASSAY OF FERRITIN Returned 11/01/2015 12:00 AM ASSAY OF IRON Returned 01/12/2014 12:00 AM CYTOPATH C/V THIN [...] 9.30 mg/dLeGFR >60 mL/min/1.73m TSH 0.430 uIU/mL 11/01/2015 3:30 PM GLUCOSE 99.0 mg/dLSODIUM 139.0 mmol/LPOTASSIUM 3.80 mmol/ LCHLORIDE 104.0 mmol/LCO2 26.0 mmol/LBUN 10.0 mg/dLCREATININE 0.80 mg/dLSGOT/ AST 19.0 IU/LSGPT/ALT 22.0 IU/LALK PHOS 101.0 IU/LTOTAL PROTEIN 7.0 g/dLALBUMIN 4.60 g/dLTOTAL BILI 0.70 mg/dLCALCIUM 9.50 mg/dLeGFR >60 mL/min/1.73mWBC 7.0 RBC 4.24 HGB 12.0 g/dLHCT 37.30 %MCV 88.0 fLMCH 28.30 pgMCHC 32.20 g/dLRDW CV 14.0 %MPV 11.80 fLPLT 180 %NEUT 76.90 %%LYMP 15.50 %%MONO 6.50 %%EOS 0.10 %% BASO 0.70 %#NEUT 5.34 #LYMP 1.08 #MONO 0.45 #EOS 0.01 #BASO 0.05 IRON TOTAL 95.0 ug/dLTransferrin 346.0 mg/dLFERRITIN 10.0 ng/mL History Of Immunizations Not available. [...] 21 2015 11:01AM Pelvic Pain - Right Feb 16 2016 3:54PM Irregular Menses May 09 2015 3:54PM [...] reaction to stress Nov 22 2015 1:43PM Payers Insurance Name Company Name Plan Name Plan Number Policy Number Policy Group Number Start Date [facility] Comm [id number] N/A [facility] Comm Plan of [id number] N/A History of Encounters Visit Date Visit Type Provider 11/22/2015 Office visit Jeri BISWAS 11/16/2015 Office visit Jeri BISWAS 11/01/2015 [facility] Ysabel Chi MD 11/01/2015 Office visit Jeri BISWAS 10/26/2015 [facility] Ysabel Chi MD 08/29/2015 Office visit Jeri BISWAS 08/07/2015 Office visit Jeri BISWAS 07/04/2015 Office visit Jeri Mary Milad LEAF SIZE PICKER 06/18/2015 Hospital Ysabel Chi MD 05/24/2015 Office visit 05/24/2015 Office visit Micky Rider MD 05/09/2015 Office visit Karen Diane MANUFACTURING CLERK 05/05/2015 Office visit Jeri Stinson LEAF SIZE PICKER 04/21/2015 Office visit Jeri Stinson LEAF SIZE PICKER 04/20/2015 Laboratory Jeri Stinson LEAF SIZE PICKER 04/11/2015 Laboratory Jeri Stinson LEAF SIZE PICKER 04/10/2015 Office visit Jeri Stinson LEAF SIZE PICKER 02/28/2015 Office visit Kenneth Motta DO 11/07/2014 Office visit 11/07/2014 Office visit Karen Diane MANUFACTURING CLERK 09/29/[address] JULY CHAVEZ MD 09/13/2014 Office visit Karen Diane MANUFACTURING CLERK 08/09/2014 Office visit Kenneth Motta DO 07/28/2014 [facility] Kenneth Motta DO 07/22/2014 Office visit 07/22/2014 Office visit Kenneth Motta DO 06/04/2014 [facility] Ysabel Chi MD 03/28/2014 Office visit Vijay León MD 03/15/2014 [facility] Vijay León MD 03/09/2014 Office visit Dimitry García MD 03/03/2014 Surgery Vijay León MD 01/30/2014 [facility] Vijay León MD 01/27/2014 Office visit Vijay León MD 01/27/2014 [facility] Vijay León MD 01/26/2014 Office visit Vijay León MD 01/26/2014 [facility] Vijay León MD 01/12/2014 Office visit Vijay León MD 01/12/2014 [facility] Vijay León MD 01/07/2014 [facility] Vijay León MD
--- OUTSIDE RECORDS SUMMARY | 2017-02-28 01:00 | XMS REPORT ---
Author Author ANTON FAM Organization [facility] Address [address] [place] [address] Care Team Providers Care Exterior Door Installer Name Role Phone ANTON FAM Unavailable PROBLEMS Type Condition ICD9-CM Code UHF44-ID Code Onset Dates Condition Status SNOMED Code Problem Encounter for dental examination Z01.20 Active 849518448 ALLERGIES Substance Reaction Event Type Date Status sulfa drugs Unknown Drug Allergy Feb, Active SOCIAL HISTORY No smoking Hx information available PLAN OF CARE Activity Details Follow Up TE 11&12 Reason: VITAL SIGNS Blood pressure systolic 139 mmHg 2016-03-19 Blood pressure diastolic 83 mmHg 2016-03-19 MEDICATIONS Medication Instructions Dosage Frequency Start Date End Date Duration Status Clindamycin HCl 150 MG Orally every 8 hrs 1 capsules 8h 10 days Active Paroxetine HCl 20 MG Orally Once a day 1 tablet in the morning 24h Active [place] 7.5-325 MG Orally every 4-6 hours as needed 1 tablet Active Ranitidine Active Protonix 40 MG Orally Once a day 1 tablet 24h Active Aspirin 75 MG Orally Once a day 1 tablet 24h Active RESULTS No Results PROCEDURES Procedure Date Ordered Related Diagnosis Body Site LTD ORAL EVALUATION - PROBLEM FOCUS Mar 19, 2016 INTRAORL-PERIAPICAL EA ADD FILM Mar 19, 2016 IMMUNIZATIONS No Known Immunizations
--- OUTSIDE RECORDS SUMMARY | 2017-02-28 01:01 | XMS REPORT ---
Author Author Jeri Stinson [facility] Address [address] [facility] [address] [place], [place] [address] Care Team Providers Care Manager Emergency Name Role Phone Jeri Stinson PCP Allergies [...] TAKE 1 TABLET BY MOUTH ONCE DAILY ProAir HFA 90 mcg/actuation inhalation HFA aerosol [...] (30 mg) by oral route once daily rizatriptan 10 mg oral tablet 07/24/2016 TAKE 1 TABLET BY MOUTH ONCE DAILY * *MAY REPEAT AT 2 HOURS INTERVALS; DO NOT EXCEED 30 MG IN 24 HOURS Name Start Date Expiration Date SIG Comments [...] 2 times a day for 7 days pantoprazole 40 mg oral tablet,delayed release (DR/EC) 04/17/2016 07/16/2016 take 1 tablet (40 mg) by oral route once daily for 90 days cetirizine 10 mg oral tablet 04/22/2016 [...] Illness Name Date of Onset Comments Shortness Of Breath Headache Head Injury, Closed at age 16 [...] Date [facility] [id number] N/A [facility] Comm Plan of [id number] N/A History of Encounters Visit Date Visit Type Provider 06/05/2016 Office visit Jeri BISWAS 03/26/2016 Office visit Jeri BISWAS 02/07/2016 Office visit Jeri BISWAS 01/30/2016 Office visit Jeri BISWAS 01/24/2016 Office visit Jeri BISWAS 01/17/2016 Office visit Jeri BISWAS 12/20/2015 Office visit Jeri BISWAS 11/24/2015 Office visit Jeri BISWAS 11/22/2015 Office visit Jeri BISWAS 11/20/2015 Hospital Ysabel Chi MD 11/19/2015 [facility] Ysabel Chi MD 11/16/2015 Office visit Jeri RUSSP 11/01/2015 Hospital Ysabel Chi MD 11/01/2015 Office visit Jeri RUSSP 10/26/2015 Hospital Ysabel Chi MD 08/29/2015 Office visit Jeri Stinson DISH MAKER 08/07/2015 Office visit Jeri Stinson DISH MAKER 07/04/2015 Office visit Jeri RUSSP 06/18/2015 Hospital Ysabel Chi MD 05/24/2015 Office visit 05/24/2015 Office visit Micky Rider MD 05/09/2015 Office visit Karen Diane KNITTER HELPER 05/05/2015 Office visit Jeri Stinson DISH MAKER 04/21/2015 Office visit Jeri RUSSP 04/20/2015 Laboratory Jeri Stinson DISH MAKER 04/11/2015 Laboratory Jeri RUSSP 04/10/2015 Office visit Jeri Stinson DISH MAKER 02/28/2015 Office visit Kenneth Motta DO 11/07/2014 Office visit 11/07/2014 Office visit Karen Diane KNITTER HELPER 09/29/[address] JULY CHAVEZ MD 09/13/2014 Office visit Karen Diane KNITTER HELPER 08/09/2014 Office visit Kenneth Motta DO 07/28/2014 [facility] Kenneth Motta DO 07/22/2014 Office visit 07/22/2014 Office visit Kenneth Motta DO 06/04/2014 [facility] Ysabel Chi MD 03/28/2014 Office visit Vijay León MD 03/15/2014 [facility] Vijay León MD 03/09/2014 Office visit Dimitry García MD 03/03/2014 Surgery Vijay León MD 01/30/2014 [facility] Vijay León MD 01/27/2014 Office visit Vijay León MD 01/27/2014 [facility] Vijay León MD 01/26/2014 Office visit Vijay León MD 01/26/2014 [facility] Vijay León MD 01/12/2014 Office visit Vijay León MD 01/12/2014 [facility] Vijay León MD 01/07/2014 [facility] Vijay León MD
--- OUTSIDE RECORDS SUMMARY | 2017-02-28 01:02 | XMS REPORT ---
Author Author Jeri Stinson [facility] Address [address] [place], [place] [phone] Care Team Providers Care Head Golf Professional Name Role Phone Jeri Stinson PCP Allergies [...] 8 hours as needed nausea and/or vomiting Prozac 40 mg oral capsule 11/16/2015 04/14/2016 take 1 capsule (40 mg) by oral route once daily in the morning for 30 days triamcinolone acetonide 0.025 % topical cream 11/16/2015 apply to affected area(s) by topical route 2 times a day as needed for itching Name Start Date Expiration Date SIG Comments [...] Active 03/07/2015 Depression with anxiety Active 11/22/2015 Vital Signs Date Time BP-Sys(mm[Hg] BP-Sofia(mm[Hg]) HR(bpm) RR(rpm) Temp WT HT HC BMI BSA BMI Percentile O2 Sat(%) 11/16/2015 10:46:00 AM 120 mmHg 68 mmHg 55 bpm 12 rpm 97.3 F 110.5 lbs 63 in 19.57 kg/m2 1.49 m2 98 % 11/01/2015 9:37:00 AM [...] bowel syndrome) 03/07/2015 Depression with anxiety 11/22/2015 Care, High Risk Jan 12 2014 4:42PM [...] nonspecific skin eruption Nov 16 2015 10:49AM Payers Insurance Name Company Name Plan Name Plan Number Policy Number Policy Group Number Start Date [facility] - Community [facility] Comm [id number] N/A [facility] Comm Plan of [id number] N/A History of Encounters Visit Date Visit Type Provider 11/16/2015 Office visit Jeri BISWAS 11/01/2015 Office visit Jeri BISWAS 10/26/2015 [facility] Ysabel Chi MD 08/29/2015 Office visit Jeri BISWAS 08/07/2015 Office visit Jeri BISWAS 07/04/2015 Office visit Jeri BISWAS 06/18/2015 [facility] Ysabel Chi MD 05/24/2015 Office visit 05/24/2015 Office visit Micky Rider MD 05/09/2015 Office visit Karen Diane APRN 05/05/2015 Office visit Jeri BISWAS 04/21/2015 Office visit Jeri BISWAS 04/20/2015 Laboratory Jeri BISWAS 04/11/2015 Laboratory Jeri BISWAS 04/10/2015 Office visit Jeri Stinson LOCKER ROOM MANAGER 02/28/2015 Office visit Kenneth Motta DO 11/07/2014 Office visit 11/07/2014 Office visit Karen Diane CYTOGENETICS LABORATORY MANAGER 09/29/[address] JULY CHAVEZ MD 09/13/2014 Office visit Karen Diane CYTOGENETICS LABORATORY MANAGER 08/09/2014 Office visit Kenneth Motta DO 07/28/2014 Hospital Kenneth Motta DO 07/22/2014 Office visit 07/22/2014 Office visit Kenneth Motta DO 06/04/2014 [facility] Ysabel Chi MD 03/28/2014 Office visit Vijay León MD 03/15/2014 [facility] Vijay León MD 03/09/2014 Office visit Dimitry García MD 03/03/2014 Surgery Vijay León MD 01/30/2014 [facility] Vijay León MD 01/27/2014 Office visit Vijay León MD 01/27/2014 [facility] Vijay León MD 01/26/2014 Office visit Vijay León MD 01/26/2014 [facility] Vijay León MD 01/12/2014 Office visit Vijay León MD 01/12/2014 [facility] Vijay León MD 01/07/2014 [facility] Vijay León MD
--- OUTSIDE RECORDS SUMMARY | 2017-02-28 01:02 | XMS REPORT ---
Author Author Jeri Stinson [facility] Address [address] [place], [place] [address] Care Team Providers Care Script Girl Name Role Phone Jeri Stinson PCP Allergies and Adverse Reactions Name Reaction Notes SULFA (SULFONAMIDES) Itching Plan of Treatment Planned Activity Comments Planned Date Planned Time Plan/Goal GENERAL HEALTH PANEL 04/10/2015 12:00 AM URINALYSIS AUTO W/O SCOPE 04/10/2015 12:00 AM Medications Active Name Start Date Estimated Completion Date SIG Comments Reglan 10 mg oral tablet take 1 tablet (10 mg) by oral route 4 times per day 30 minutes before meals and at bedtime aspirin 81 mg oral tablet,chewable chew 1 tablet (81 mg) by oral route once daily Name [...] 1 tab PO every 6 hours PRN Discontinued Name Start Date Discontinued Date SIG [...] HC BMI BSA BMI Percentile O2 Sat(%) 04/10/2015 3:11:00 PM 112 mmHg 58 mmHg [...] 3:14PM Urinary frequency Apr 10 2015 3:14PM Payers Insurance Name Company Name Plan Name Plan Number Policy Number Policy Group Number Start Date [facility] Comm [id number] N/A [facility] Comm Plan of [id number] N/A History of Encounters Visit Date Visit Type Provider 04/10/2015 Office visit Jeri BISWAS 02/28/2015 Office visit Kenneth Motta DO 11/07/2014 Office visit 11/07/2014 Office visit Karen Diane IT FIELD TECHNICIAN 09/29/[address] JULY CHAVEZ MD 09/13/2014 Office visit Karen Diane IT FIELD TECHNICIAN 08/09/2014 Office visit Kenneth Motta DO 07/28/2014 [facility] Kenneth Motta DO 07/22/2014 Office visit 07/22/2014 Office visit Kenneth Motta DO 06/04/2014 [facility] Ysabel Chi MD 03/28/2014 Office visit Vijay León MD 03/15/2014 [facility] Vijay León MD 03/09/2014 Office visit Dimitry García MD 03/03/2014 Surgery Vijay León MD 01/30/2014 [facility] Vijay León MD 01/27/2014 Office visit Vijay León MD 01/27/2014 [facility] Vijay León MD 01/26/2014 Office visit Vijay León MD 01/26/2014 [facility] Vijay León MD 01/12/2014 Office visit Vijya León MD 01/12/2014 [facility] Vijay León MD 01/07/2014 [facility] Vijay León MD
--- OUTSIDE RECORDS SUMMARY | 2017-02-28 01:03 | XMS REPORT ---
Author Micky Kaiser [facility] Address [address] [place], [place] [address] Care Team Providers Care Complaints Coordinator Name Role Phone Micky Rider PCP Unavailable Allergies and Adverse Reactions Name Reaction Notes SULFA (SULFONAMIDES) Itching Plan of Treatment Planned Activity Comments Planned Date Planned Time Plan/Goal US EXAM PELVIC COMPLETE 05/31/2015 12:00 AM URINE CULTURE/COLONY COUNT 05/24/2015 12:00 AM Medications Active Name Start Date [...] Negative 05/24/2015 10:26 AM Test, Urine negative History Of Immunizations Not available. 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 Comm [id number] N/A [facility] Comm Plan of [id number] N/A History of Encounters Visit Date Visit Type Provider 05/24/2015 Office visit 05/24/2015 Office visit Micky Rider MD 05/09/2015 Office visit Karen Diane TRAVELING BUYER 05/05/2015 Office visit Jeri MEj Stinson SALESPERSON [employer] 04/21/2015 Office visit Jeri IgnacioEj Stinson SALESPERSON [employer] 04/20/2015 Laboratory Jeri IgnacioEj Stinson SALESPERSON [employer] 04/11/2015 Laboratory Jeri IgnacioEj Stinson SALESPERSON [employer] 04/10/2015 Office visit Jeri Stinson SALESPERSON [employer] 02/28/2015 Office visit Kenneth Motta DO 11/07/2014 Office visit 11/07/2014 Office visit Karen Diane TRAVELING BUYER 09/29/[address] JULY CHAVEZ MD 09/13/2014 Office visit Karen Diane TRAVELING BUYER 08/09/2014 Office visit Kenneth Motta DO 07/28/2014 [facility] Kenneth Motta DO 07/22/2014 Office visit 07/22/2014 Office visit Kenneth Motta DO 06/04/2014 [facility] Ysabel Chi MD 03/28/2014 Office visit Vijay León MD 03/15/2014 [facility] Vijay León MD 03/09/2014 Office visit Dimitry García MD 03/03/2014 Surgery Vijay León MD 01/30/2014 [facility] Vijay León MD 01/27/2014 Office visit Vijay León MD 01/27/2014 [facility] Vijay León MD 01/26/2014 Office visit Vijay León MD 01/26/2014 [facility] Vijay León MD 01/12/2014 Office visit Vijay León MD 01/12/2014 [facility] Vijay León MD 01/07/2014 [facility] Vijay León MD
--- OUTSIDE RECORDS SUMMARY | 2017-02-28 01:03 | XMS REPORT | CCD ---
Author Author ANDREA BARRERA Organization Unknown Address [address] [place], [place] [address] Care Team Providers Care Senior Technical Editor Name Role Phone HANDSHY ER, JAMAR RUDOLPH Attphys HANDSHY ER, JAMAR RUDOLPH Prisurg Vital Signs Unknown or Not Available. Allergies Allergy Code Allergy Type Reaction Status No Known Drug Allergies 0 No known drug allergies Active Procedures Procedure Code Procedure Type Date CHLAMYDIA/GC AMPLIFIED DNA 205276587 SNOMED CT 05/07/2015 UA ROUTINE C&S IF IND 045918173 SNOMED CT 05/07/[address] 05/07/[address] 05/07/2015 COMPREHENSIVE METABOLIC PANEL 343910741 SNOMED CT 2015 CBC W/ AUTO DIFF (RFLX MAN DIFF IF IND) 0581910 SNOMED CT 05/07/[address] 05/07/2015 ^CBC W/AUTO DIFF 2647381 SNOMED CT 05/07/2015 ^UA AUTO DIPSTICK ONLY 047681418 SNOMED CT 05/07/2015 History of Immunizations Immunization Code Date Tdap 115 12/14/2013 Influenza, seasonal, injectable 141 01/30/2011 Problems Problem Code Start Date Resolved Date Status Vaginal delivery 422005591 Active Female sterilization 80818031 Active Results COMPREHENSIVE METABOLIC PANEL - Collect Date/Time: 05/07/2015 16:35 Test Name Code Test Result Test Units Test Ref Range GLUCOSE 2345-7 119 MG/DL L=70 H=100 SODIUM 2951-2 136 MEQ/L L=135 H=148 POTASSIUM 2823-3 3.8 MEQ/L L=3.5 H=5.3 CHLORIDE 2075-0 101 MEQ/L L=96 H=110 CO2 2028-9 27 MEQ/L L=22 H=29 BUN 3094-0 10 MG/DL L=8 H=22 CREATININE 2160-0 0.8 MG/DL L=0.6 H=1.6 SGOT/AST 1920-8 26 IU/L L=10 H=40 SGPT/ALT 1742-6 39 IU/L L=8 H=54 ALK PHOS 6768-6 169 IU/L L=35 H=115 TOTAL PROTEIN 2885-2 7.6 G/DL L=5.5 H=8.5 ALBUMIN 1751-7 4.7 G/DL L=3.1 H=5.4 TOTAL BILI 1975-2 0.4 MG/DL L=0.0 H=1.5 CALCIUM 34215-8 9.5 MG/DL L=8.2 H=10.6 AGE 29 yrs GFR NonAA 85 GFR AA 103 eGFR >60 N/A eGFR AA* >60 N/A LIPASE - Collect Date/Time: 05/07/2015 16:35 Test Name Code Test Result Test Units Test Ref Range LIPASE 3040-3 30 U/L L=8 H=78 CBC W/ AUTO DIFF (RFLX MAN DIFF IF IND) - Collect Date/Time: 05/07/2015 16:35 Test Name Code Test Result Test Units Test Ref Range WBC 04533-3 9.9 TH/CMM L=4.5 H=10.8 RBC 789-8 4.40 ML/CMM L=4.20 H=5.40 HGB 718-7 13.1 G/DL L=12.0 H=16.0 HCT 4544-3 40.2 % L=37.0 H=47.0 MCV 91 FL L=81 H=99 MCH 29.8 PG L=27.0 H=33.0 MCHC 32.6 G/DL L=31.0 H=36.0 RDW SD 45 FL L=36 H=50 RDW CV 13.4 % L=0.0 H=14.8 MPV 10.2 FL L=9.3 H=12.5 PLT 777-3 255 TH/CMM L=130 H=440 NRBC# 0.00 TH/CMM L=0.00 H=0.00 NRBC% 0.0 /100WBC L=0.0 H=2.0 %NEUT 76.3 % %LYMP 17.4 % %MONO 5.3 % %EOS 0.6 % %BASO 0.4 % #NEUT 7.55 TH/CMM L=2.10 H=8.20 #LYMP 1.72 TH/CMM L=0.90 H=5.20 #MONO 0.52 TH/CMM L=0.16 H=1.00 #EOS 0.06 TH/CMM L=0.00 H=0.80 #BASO 0.04 TH/CMM L=0.00 H=0.20 MANUAL DIFF NOT IND N/A UA ROUTINE C&S IF IND - Collect Date/Time: 05/07/2015 16:44 Test Name Code Test Result Test Units Test Ref Range COLOR YELLOW N/A NL: YELLOW APPEARANCE CLEAR N/A NL: CLEAR SPEC GRAV <=1.005 N/A NL: 1.002 - 1.022 pH 5.5 N/A NL: 5 - 9 PROTEIN NEGATIVE N/A NL: NEGATIVE mg/dl GLUCOSE NEGATIVE N/A NL: NEGATIVE mg/dl KETONE NEGATIVE N/A NL: NEGATIVE mg/dl BILIRUBIN NEGATIVE N/A NL: NEGATIVE BLOOD NEGATIVE N/A NL: NEGATIVE NITRITE NEGATIVE N/A NL: NEGATIVE LEUK SCREEN NEGATIVE N/A NL: NEGATIVE MICRO INDICATED? NOT INDICATED N/A CHLAMYDIA/GC AMPLIFIED DNA - Collect Date/Time: 05/07/2015 16:44 Test Name Code Test Result Test Units Test Ref Range Neisseria Gonorrhoeae 78351-7 NEGATIVE N/A NEGATIVE Chlamydia Trachomatis 28519-3 NEGATIVE N/A NEGATIVE TEST - Collect Date/Time: 05/07/2015 16:35 Test Name Code Test Result Test Units Test Ref Range TEST 2118-8 NEGATIVE N/A AMYLASE - Collect Date/Time: 05/07/2015 16:35 Test Name Code Test Result Test Units Test Ref Range AMYLASE 1798-8 52 IU/L L=25 H=125 Active Medications Medication Code Dose Units Frequency Route Modification Start Date/Time Acetaminophen/Codeine 300MG-30MG Oral Tablet 717132 1 TABLET NEEDED EVERY 6 HR BY MOUTH 02/01/2014 08 :57 Prescription Detail 1 TABLET BY MOUTH NEEDED EVERY 6 HR Ibuprofen 800MG Oral Tablet 722736 800 MILLIGRAMS NEEDED EVERY 8 HR BY MOUTH 02/01/2014 08:57 Prescription Detail 800 MILLIGRAMS BY MOUTH NEEDED EVERY 8 HR Oral Tablet 677529 1 EACH DAILY ORAL 02/01/2014 08:57 Prescription Detail 1 EACH ORAL DAILY Medications Administered During Visit Unknown or Not Available. Encounters Encounter Diagnosis Diagnosis Code Start Date Pelvic and perineal pain 966606030 05/07/2015 Social History Smoking Status Code Start Date End Date Current every day smoker 642370005 Patient Decision Aids Unknown or Not Available. Discharge Instructions You were admitted to [facility] on 05/07/2015 14:26 with a principal diagnosis of Pelvic and perineal pain You had the following tests done: AMYLASE CBC W/ AUTO DIFF (RFLX MAN DIFF IF IND) CHLAMYDIA/GC AMPLIFIED DNA COMPREHENSIVE METABOLIC PANEL LIPASE TEST UA ROUTINE C&S IF IND You were discharged from [facility] on 05/07/2015 17:43 Should you have any questions prior to discharge, please contact a member of your healthcare team. If you have left the hospital and have any questions, please contact your primary care physician. Chief Complaint and Reason For Visit Chief Complaint Date of Onset ABDOMINAL PAIN Function Status Unknown or Not Available. Plan of Care Unknown or Not Available. Referral/Transition of Care Unknown or Not Available.
--- OUTSIDE RECORDS SUMMARY | 2017-02-28 01:04 | XMS REPORT | CCD ---
Author ALEXIS Hernadez Unknown Address [address] [place], [place] [address] Care Team Providers Care Mask Inspector Name Role Phone MONTROSE ER, WAQAS DO Attphys MONTROSE ER, WAQAS DO Prisurg Vital Signs Unknown or Not Available. Allergies Allergy Code Allergy Type Reaction Status No Known Drug Allergies 0 No known drug allergies Active Procedures Unknown or Not Available. History of Immunizations Immunization Code Date Tdap 115 12/14/2013 Influenza, seasonal, injectable, preservative free 140 2013 Influenza, seasonal, injectable, preservative free 140 2015 Influenza, seasonal, injectable 141 01/30/2011 Problems Problem Code Start Date Resolved Date Status Vaginal delivery 814143454 Active Female sterilization 75659799 Active Results Unknown or Not Available. Active Medications Medication Code Dose Units Frequency Route Modification Start Date/Time Acetaminophen/Codeine 300MG-30MG Oral Tablet 934238 1 TABLET NEEDED EVERY 6 HR BY MOUTH 02/01/2014 08 :57 Prescription Detail 1 TABLET BY MOUTH NEEDED EVERY 6 HR Ibuprofen 800MG Oral Tablet 359130 800 MILLIGRAMS NEEDED EVERY 8 HR BY MOUTH 02/01/2014 08:57 Prescription Detail 800 MILLIGRAMS BY MOUTH NEEDED EVERY 8 HR Oral Tablet 704898 1 EACH DAILY ORAL 02/01/2014 08:57 Prescription Detail 1 EACH ORAL DAILY Medications Administered During Visit Unknown or Not Available. 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 Discharge Instructions You were admitted to [facility] on 11/20/2015 19:14 with a principal diagnosis of Catatonic disorder due to known physiological condition You were discharged from [facility] on 11/20/2015 21:37 Should you have any questions prior to discharge, please contact a member of your healthcare team. If you have left the hospital and have any questions, please contact your primary care physician. Chief Complaint and Reason For Visit Chief Complaint Date of Onset SYNCOPE Function Status Unknown or Not Available. Referral/Transition of Care Unknown or Not Available.
--- OUTSIDE RECORDS SUMMARY | 2017-02-28 01:04 | XMS REPORT ---
Author Author RACHEL MOCTEZUMA Organization [employer] Address Unknown Phone Unavailable Care Team Providers Care Top And Trim Worker Name Role Phone RACHEL MOCTEZUMA CP Unavailable Allergies, Adverse Reactions, Alerts Substance Reaction Event Type sulfa drugs Info Not Available Drug Allergy Problems Problem Type Condition Code Onset Dates Condition Status Assessment Dental caries on smooth surface penetrating into pulp K02.63 Active Problem Encounter for dental examination Z01.20 Active Medications Medication Code System Code Instructions Start Date End Date Status Dosage Naproxen [facility] [address]-75 500 MG Orally every 12 hrs June 08, 2015 take two tabs immediately then 1 tablet as needed Procedures Procedure Coding System Code Date EXTRAC ERUPTED TOOTH/EXPOSED ROOT CPT-4 D7140 May 23, 2015 EXTRAC ERUPTED TOOTH/EXPOSED ROOT CPT-4 D7140 May 23, 2015 Vital Signs Date/Time: June 08, 2015 Blood Pressure Diastolic 81 mmHg Blood Pressure Systolic 123 mmHg Cardiac Monitoring Heart Rate 52 bpm Results No Known Results Summary Purpose [employer] Submission
--- OUTSIDE RECORDS SUMMARY | 2017-02-28 01:04 | XMS REPORT ---
Author Author [facility] Organization [facility] Address [address] [place], [place] [address] Care Team Providers Care Dance Instructor Name Role Phone PCP Unavailable Allergies and Adverse Reactions Name Reaction Notes NO KNOWN DRUG ALLERGIES Plan of Treatment Planned Activity Comments Planned Date Planned Time Plan/Goal US EXAM PELVIC COMPLETE 09/13/2014 12:00 AM TRANSVAGINAL US NON-OB 09/13/2014 12:00 AM Medications Active Name Start Date Estimated Completion Date SIG Comments Reglan oral tablet 10 mg take 1 tablet (10 mg) by oral route 4 times per day 30 minutes before meals and at bedtime Augmentin oral tablet 875-125 mg 09/29/2014 10/06/2014 take 1 tablet by oral route every 12 hours for 7 days Name Start Date Expiration Date SIG Comments Miralax oral powder 17 gram/dose 01/12/2014 02/11/2014 take 17 gram mixed with 8 oz. water, juice, soda, coffee or tea by oral route once daily for 30 days Zofran (as hydrochloride) oral tablet 4 mg 01/12/2014 02/11/2014 take 1 tablet by oral route every 6 hours as needed for 30 days Dexilant oral capsule,biphase delayed releas 60 mg 08/09/2014 09/08/2014 take 1 capsule (60 mg) by oral route once daily for 30 days amitriptyline oral tablet 25 mg 08/09/2014 09/08/2014 take 1/2 to 1 tablet po qHS Discontinued Name Start Date Discontinued Date SIG Comments Vitamin oral tablet 03/03/2014 take 1 tablet by oral route once daily Percocet Oral Tablet 5-325 mg 03/03/2014 09/13/2014 take 1 tablet by oral route every 4-6 hours as needed ibuprofen Oral Tablet 800 mg 03/03/2014 09/13/2014 take 1 tablet by oral route every 8 hours as needed for 30 days Zoloft Oral tablet 50 mg 03/09/2014 09/29/2014 take 1 tablet (50 mg) by oral route once daily Diflucan oral tablet 150 mg 03/14/2014 09/13/2014 take 1 tablet (150 mg) by oral route once Problem List Description Status Onset Nausea Active 07/22/2014 Diarrhea Active 07/22/2014 Rectal bleeding Active 07/22/2014 Weight loss Active 07/22/2014 GERD (gastroesophageal reflux disease) Active 07/22/2014 Vital Signs Date Time BP-Sys(mm[Hg] BP-Sofia(mm[Hg]) HR(bpm) RR(rpm) Temp WT HT HC BMI BSA BMI Percentile O2 Sat(%) 09/29/2014 10:33:00 AM 101 mmHg 43 mmHg [...] Comments Tobacco Current every day smoker Alcohol None while Denies illicit substance abuse History of Procedures [...] 12:00 AM BX/CURETT OF CERVIX W/SCOPE Reviewed Results Summary Data and Description Results 01/06/2014 [...] 3.84 HGB 11.50 g/dLHCT 33.80 %MCV 88.0 fLH 29.90 pgMCHC 34.0 g/dLRDW CV 13.60 %MPV [...] NEGATIVE 09/29/2014 11:34 AM Test, Urine negative History Of Immunizations Not available. History of Past Illness Name Date of Onset Comments Shortness Of Breath Headache Head Injury, Closed at age 16 Nausea 07/22/2014 Diarrhea 07/22/2014 Rectal bleeding 07/22/2014 Weight loss 07/22/2014 GERD (gastroesophageal reflux disease) 07/22/2014 Care, High Risk Jan 12 2014 4:42PM [...] Pap smear Sep 29 2014 10: 37AM Payers Insurance Name Company Name Plan Name Plan Number Policy Number Policy Group Number Start Date [facility] - C - Community Plan [facility] RHC Comm [id number] N/A [facility] Plan [facility] Comm Plan of [id number] N/A History of Encounters Visit Date Visit Type Provider 09/29/[address] JULY CHAVEZ MD 09/13/2014 Office visit Karen Diane NIGHT COORDINATOR 08/09/2014 Office visit Kenneth Motta DO 07/28/2014 [facility] Kenneth Motta DO 07/22/2014 Office visit Kenneth Motta DO 03/28/2014 Office visit Vijay León MD 03/15/2014 [facility] Vijay León MD 03/09/2014 Office visit Dimitry García MD 03/03/2014 Surgery Vijay León MD 01/30/2014 [facility] Vijay León MD 01/27/2014 Office visit Vijay León MD 01/27/2014 [facility] Vijay León MD 01/26/2014 Office visit Vijay León MD 01/26/2014 [facility] Vijay León MD 01/12/2014 Office visit Vijay León MD 01/12/2014 [facility] Vijay León MD 01/07/2014 [facility] Vijay León MD
--- OUTSIDE RECORDS SUMMARY | 2017-02-28 01:04 | XMS REPORT ---
Author Author Karen Diane [facility] Address [address] [address] [place], [place] [address] Care Team Providers Care Chainstitch Hemmer Name Role Phone Karen Diane PCP Unavailable Allergies and Adverse Reactions Name Reaction Notes SULFA (SULFONAMIDES) Itching Plan of Treatment Planned Activity Comments Planned Date Planned Time Plan/Goal CT PELVIS W/O & W/DYE 05/09/2015 12:00 AM N.GONORRHOEAE DNA AMP PROB 05/09/2015 12:00 AM CHLAMYDIA CULTURE 05/09/2015 12:00 AM Medications Active Name Start Date Estimated Completion Date SIG Comments aspirin 81 mg oral tablet,chewable chew 1 tablet (81 mg) by oral route once daily Prozac 20 mg oral capsule take 1 capsule (20 mg) by oral route once daily ranitidine HCl 300 mg oral tablet take 1 tablet (300 mg) by oral route 2 times per day Protonix 40 mg oral tablet,delayed release (DR/EC) 04/21/2015 06/16/2015 take 1 tablet (40 mg) by oral route once daily for 8 weeks Reglan 10 mg oral tablet 04/27/2015 05/27/2015 take 1 tablet (10 mg) by oral route 4 times per day 30 minutes before meals and at bedtime for 30 days Maxalt 10 mg oral tablet 05/05/2015 take 1 tablet (10 mg) by oral route once, may repeat at 2 hour intervals; do not exceed 30 mg in 24 hours Ultram 50 mg oral tablet 05/09/2015 05/16/2015 take 1 tablet (50 mg) by oral route every 4-6 hours as needed for 7 days Name Start Date Expiration [...] HC BMI BSA BMI Percentile O2 Sat(%) 05/09/2015 3:50:00 PM 119 mmHg 33 mmHg [...] 04/21/2015 12:00 AM ACUTE HEPATITIS PANEL Returned 01/12/2014 12:00 AM CYTOPATH C/V THIN [...] 3:54PM Irregular Menses May 09 2015 3:54PM Payers Insurance Name Company Name Plan Name Plan Number Policy Number Policy Group Number Start Date [facility] - Community [facility] Comm [id number] N/A [facility] Comm Plan of [id number] N/A History of Encounters Visit Date Visit Type Provider 05/09/2015 Office visit Karen Diane APRN 05/05/2015 Office visit Jeri BISWAS 04/21/2015 Office visit Jeri BISWAS 04/20/2015 Laboratory Jeri BISWAS 04/11/2015 Laboratory Jeri BISWAS 04/10/2015 Office visit Jeri BISWAS 02/28/2015 Office visit Kenneth Motta DO 11/07/2014 Office visit 11/07/2014 Office visit Karen Diane APRN 09/29/[address] JULY CHAVEZ MD 09/13/2014 Office visit Karen Diane APRN 08/09/2014 Office visit Kenneth Motta DO 07/28/2014 [...]
--- OUTSIDE RECORDS SUMMARY | 2017-02-28 01:05 | XMS REPORT ---
Author Author [facility] Organization [facility] Address [address] [place], [place] [address] Care Team Providers Care Sales Support Manager Name Role Phone PCP Unavailable Allergies and Adverse Reactions Name Reaction Notes NO KNOWN DRUG ALLERGIES Plan of Treatment Planned Activity Comments Planned Date Planned Time Plan/Goal US EXAM PELVIC COMPLETE 09/13/2014 12:00 AM TRANSVAGINAL US NON-OB 09/13/2014 12:00 AM US EXAM PELVIC COMPLETE 11/14/2014 12:00 AM IMMUNOASSAY TUMOR CA 125 11/07/2014 12:00 AM US EXAM PELVIC COMPLETE 11/07/2014 12:00 AM HEPATITIS C AB TEST 11/07/2014 12:00 AM HEPATITIS B SURFACE AG EIA 11/07/2014 12:00 AM Medications Active Name Start Date Estimated Completion Date SIG Comments Reglan oral tablet 10 mg take 1 tablet (10 mg) by oral route 4 times per day 30 minutes before meals and at bedtime Name Start Date Expiration Date SIG Comments [...] 1/2 to 1 tablet po qHS Augmentin oral tablet 875-125 mg 09/29/2014 10/06/2014 [...] HC BMI BSA BMI Percentile O2 Sat(%) 11/07/2014 10:24:00 AM 113 mmHg 43 mmHg [...] every day smoker Alcohol Current some day None while Denies illicit substance abuse History [...] 09/13/2014 12:00 AM US EXAM PELVIC COMPLETE Ordered 09/13/2014 12:00 AM TRANSVAGINAL US NON-OB Ordered 09/13/2014 12:00 AM US EXAM PELVIC COMPLETE Returned 09/13/2014 12:00 AM US EXAM PELVIC LIMITED Returned 09/29/2014 10:43 AM URINE TEST Reviewed 09/29/2014 12:00 AM BX/CURETT OF CERVIX W/SCOPE Returned 11/14/2014 12:00 AM US EXAM PELVIC COMPLETE Ordered 11/07/2014 12:00 AM COMPLETE CBC W/AUTO DIFF WBC Returned 11/07/2014 12:00 AM COMPREHEN METABOLIC PANEL Returned 11/07/2014 12:00 AM RBC SED RATE AUTOMATED Returned 11/07/2014 12:00 AM C-REACTIVE PROTEIN Returned 11/07/2014 12:00 AM IMMUNOASSAY TUMOR CA 125 Ordered 11/07/2014 12:00 AM US EXAM PELVIC COMPLETE Ordered 11/07/2014 12:00 AM HEPATITIS C AB TEST Ordered 11/07/2014 12:00 AM HEPATITIS B SURFACE AG EIA Ordered Results Summary Data and Description Results 01/06/2014 [...] 0.37 #EOS 0.05 #BASO 0.03 SEDRATE 5.0 mm/hr History Of Immunizations Not available. History of [...] Lymph nodes enlarged Nov 07 2014 5:05PM Payers Insurance Name Company Name Plan Name Plan Number Policy Number Policy Group Number Start Date [facility] RHC Comm [id number] N/A [facility] Comm Plan of [id number] N/A History of Encounters Visit Date Visit Type Provider 11/07/2014 Office visit Karen Diane HEAD BANQUET WAITRESS 09/29/[address] JULY CHAVEZ MD 09/13/2014 Office visit Karen Diane HEAD BANQUET WAITRESS 08/09/2014 Office visit Kenneth Motta DO 07/28/2014 [facility] Kenneth Motta DO 07/22/2014 Office visit Kenneth Motta DO 06/04/2014 [facility] Ysabel Chi MD 03/28/2014 Office visit Vijay León MD 03/15/2014 [facility] Vijay León MD 03/09/2014 Office visit Dimitry García MD 03/03/2014 Surgery Vijay León MD 01/30/2014 [facility] Vijay León MD 01/27/2014 Office visit Vijay León MD 01/27/2014 Sonia León MD 01/26/2014 Office visit Vijay León MD 01/26/2014 [facility] Vijay León MD 01/12/2014 Office visit Vijay León MD 01/12/2014 Sonia León MD 01/07/2014 [facility] Vijay León MD
--- OUTSIDE RECORDS SUMMARY | 2017-02-28 01:06 | XMS REPORT ---
Author Author Jeri Stinson [facility] Address [address] [place], [place] [id number] Care Team Providers Care Occupational Health Nurse Name Role Phone Jeri Stinson PCP Allergies and Adverse Reactions Name Reaction Notes SULFA (SULFONAMIDES) Itching Plan of Treatment Planned Activity Comments Planned Date Planned Time Plan/Goal COMPLETE CBC W/AUTO DIFF WBC 04/11/2015 12:00 AM COMPREHEN METABOLIC PANEL 04/11/2015 12:00 AM ASSAY THYROID STIM HORMONE 04/11/2015 12:00 AM ELECTROCARDIOGRAM COMPLETE 08/07/2015 12:00 AM IRON BINDING TEST 11/01/2015 12:00 AM Est patient - Linq vs [...] daily in the morning for 30 days doxycycline monohydrate 100 mg oral tablet 11/24/2015 12/01/2015 take 1 tablet by oral route 2 times a day for 7 days fluticasone 50 mcg/actuation nasal spray,suspension 11/24/2015 inhale 2 sprays (100 mcg) in each nostril by intranasal route once daily cetirizine 10 mg oral tablet 11/24/2015 take 1 tablet (10 mg) by oral route once daily as needed Name Start Date Expiration Date SIG Comments [...] HC BMI BSA BMI Percentile O2 Sat(%) 11/24/2015 9:20:00 AM 98 mmHg 60 mmHg 63 bpm 12 rpm 97.2 F 110.5 lbs 63 in 19.57 kg/m2 1.49 m2 99 % 11/22/2015 1:41:00 PM 104 mmHg 54 mmHg 66 bpm 12 rpm 97.3 F 110.5 lbs 63 in 19.574 kg/m 1.4926 m 100 % 11/16/2015 10:46:00 AM [...] infection, unspecified type Nov 24 2015 9:23AM Payers Insurance Name Company Name Plan Name Plan Number Policy Number Policy Group Number Start Date [facility] - RHC - Community Plan [facility] RHC Comm [id number] N/A [facility] Community Plan [facility] Comm Plan of [id number] N/A History of Encounters Visit Date Visit Type Provider 11/24/2015 Office visit Jeri BISWAS 11/22/2015 Office visit Jeri BISWAS 11/16/2015 Office visit Jeri BISWAS 11/01/2015 Hospital Ysabel Chi MD 11/01/2015 Office visit Jeri BISWAS 10/26/2015 Hospital Ysabel Chi MD 08/29/2015 Office visit Jeri BISWAS 08/07/2015 Office visit Jeri BISWAS 07/04/2015 Office visit Jeri BISWAS 06/18/2015 Hospital Ysabel Chi MD 05/24/2015 Office visit 05/24/2015 Office visit Micky Rider MD 05/09/2015 Office visit Karen Diane DIRECTOR OF PUBLICATIONS 05/05/2015 Office visit Jeri BISWAS 04/21/2015 Office visit Jeri BISWAS 04/20/2015 Laboratory Jeri BISWAS 04/11/2015 Laboratory Jeri BISWAS 04/10/2015 Office visit Jeri BISWAS 02/28/2015 Office visit Kenneth Motta DO 11/07/2014 Office visit 11/07/2014 Office visit Karen Diane DIRECTOR OF PUBLICATIONS 09/29/[address] JULY CHAVEZ MD 09/13/2014 Office visit Karen Diane DIRECTOR OF PUBLICATIONS 08/09/2014 Office visit Kenneth Motta DO 07/28/2014 Hospital Kenneth Motta DO 07/22/2014 Office visit 07/22/2014 Office visit Kenneth Motta DO 06/04/2014 Hospital Ysabel Chi MD 03/28/2014 Office visit Vijay León MD 03/15/2014 Hospital Vijay León MD 03/09/2014 Office visit Dimitry García MD 03/03/2014 Surgery Vijay León MD 01/30/2014 [facility] Vijay León MD 01/27/2014 Office visit Vijay León MD 01/27/2014 [facility] Vijay León MD 01/26/2014 Office visit Vijay León MD 01/26/2014 [facility] Vijay León MD 01/12/2014 Office visit Vijay León MD 01/12/2014 [facility] Vijay León MD 01/07/2014 [facility] Vijay León MD
--- OUTSIDE RECORDS SUMMARY | 2017-02-28 01:06 | XMS REPORT ---
Author Author Jeri Stinson [facility] Address [address] [place], [place] [id number] Care Team Providers Care [place] Redevelopment Site Manager Name Role Phone Jeri Stinson PCP [...] 12:13 PM URINALYSIS AUTO W/O SCOPE Reviewed 01/12/2014 12:00 AM CYTOPATH C/V THIN [...] neg WBC Est Ur Ql Strip neg History Of Immunizations Not available. History of [...] Policy Number Policy Group Number Start Date [facility] Comm [id number] N/A [facility] Comm Plan of [id number] N/A History of Encounters Visit Date Visit Type Provider 04/11/2015 Laboratory Jeri RUSSP 04/10/2015 Office visit Jeri RUSSP 02/28/2015 Office visit Kenneth Motta DO 11/07/2014 Office visit 11/07/2014 Office visit Karen Diane MEDICAL AUDITOR 09/29/[address] JULY CHAVEZ MD 09/13/2014 Office visit Karen Diane MEDICAL AUDITOR 08/09/2014 Office visit Kenneth Motta DO 07/28/2014 Hospital Kenneth Motta DO 07/22/2014 Office visit 07/22/2014 Office visit Kenneth Motta DO 06/04/2014 [facility] Ysabel Chi MD 03/28/2014 Office visit Vijay León MD 03/15/2014 [facility] Vijay León MD 03/09/2014 Office visit Dimitry García MD 03/03/2014 Surgery Vijay León MD 01/30/2014 [facility] Vijay León MD 01/27/2014 Office visit Vijay León MD 01/27/2014 [facility] Vijay León MD 01/26/2014 Office visit Vijay León MD 01/26/2014 [facility] Vijay León MD 01/12/2014 Office visit Vijay León MD 01/12/2014 [facility] Vijay León MD 01/07/2014 [facility] Vijay León MD
--- OUTSIDE RECORDS SUMMARY | 2017-02-28 01:07 | XMS REPORT ---
Author Author Jeri Stinson [facility] Address [address] [place], [place] [id number] Care Team Providers Care Him Manager Name Role Phone Jeri Stinson PCP [...] TAKE 1 TABLET BY MOUTH ONCE DAILY paroxetine HCl 20 mg oral tablet 01/24/2016 05/23/2016 take 1 tablet (20 mg) by oral route once daily for 30 days midodrine 5 mg oral tablet take 1 [...] route once daily as needed for constipation pantoprazole 40 mg oral tablet,delayed release (DR/EC) 04/17/2016 07/16/2016 take 1 tablet (40 mg) by oral route once daily for 90 days cetirizine 10 mg oral tablet 04/22/2016 06/21/2016 take 1 tablet (10 mg) by oral route once daily as needed for 30 days ProAir HFA 90 mcg/actuation inhalation HFA aerosol inhaler 05/09/2016 inhale 1 puff by inhalation route every 6 hours prn cough Name Start Date Expiration Date SIG Comments [...] Policy Number Policy Group Number Start Date [facility] - [facility] - Community Plan [facility] RHC Comm [id number] N/A [facility] Community Plan [facility] Comm Plan of [id number] N/A History of Encounters Visit Date Visit Type Provider 03/26/2016 Office visit Jeri BISWAS 02/07/2016 Office visit Jeri BISWAS 01/30/2016 Office visit Jeri BISWAS 01/24/2016 Office visit Jeri BISWAS 01/17/2016 Office visit Jeri BISWAS 12/20/2015 Office visit Jeri BISWAS 11/24/2015 Office visit Jeri BISWAS 11/22/2015 Office visit Jeri BISWAS 11/20/2015 [facility] Ysabel Chi MD 11/19/2015 [facility] Ysabel Chi MD 11/16/2015 Office visit Jeri BISWAS 11/01/2015 [facility] Ysabel Chi MD 11/01/2015 Office visit Jeri BISWAS 10/26/2015 [facility] Ysabel Chi MD 08/29/2015 Office visit Jeri BISWAS 08/07/2015 Office visit Jeri BISWAS 07/04/2015 Office visit Jeri BISWAS 06/18/2015 [facility] Ysabel Chi MD 05/24/2015 Office visit 05/24/2015 Office visit Micky Rider MD 05/09/2015 Office visit Karen Diane APRN 05/05/2015 Office visit Jeri BISWAS 04/21/2015 Office visit Jeri Stinson PLUMBING ENGINEER 04/20/2015 Laboratory Jeri Stinson PLUMBING ENGINEER 04/11/2015 Laboratory Jeri Stinson PLUMBING ENGINEER 04/10/2015 Office visit Jeri Stinson PLUMBING ENGINEER 02/28/2015 Office visit Kenneth Ángela DO 11/07/2014 Office visit 11/07/2014 Office visit Karen Diane HIM CODER 09/29/[address] JULY CHAVEZ MD 09/13/2014 Office visit Karen Diane HIM CODER 08/09/2014 Office visit Kenneth Motta DO 07/28/2014 Hospital Kenneth Motta DO 07/22/2014 Office visit 07/22/2014 Office visit Kenneth Motta DO 06/04/2014 [facility] Ysabel Chi MD 03/28/2014 Office visit Vijay León MD 03/15/2014 [facility] Vijay León MD 03/09/2014 Office visit Dimitry García MD 03/03/2014 Surgery Vijay León MD 01/30/2014 [facility] Vijay León MD 01/27/2014 Office visit Vijay León MD 01/27/2014 [facility] Vijay León MD 01/26/2014 Office visit Vijay León MD 01/26/2014 [facility] Vijay León MD 01/12/2014 Office visit Vijay León MD 01/12/2014 [facility] Vijay León MD 01/07/2014 [facility] Vijay León MD
--- OUTSIDE RECORDS SUMMARY | 2017-02-28 01:08 | XMS REPORT ---
Author Author Jeri Stinson [facility] Address [address] [place], [place] [phone] Care Team Providers Care Rehab Nurse Name Role Phone Jeri Stinson PCP [...] by oral route 2 times per day Name Start Date Expiration Date SIG Comments [...] HC BMI BSA BMI Percentile O2 Sat(%) 04/21/2015 10:58:00 AM 124 mmHg 60 mmHg [...] DIP STICK/TABLET RGNT AUTO W/O MICROSCOPY Returned 01/12/2014 12:00 AM CYTOPATH C/V THIN [...] BLOOD NEGATIVE NITRITE NEGATIVE LEUK SCREEN NEGATIVE History Of Immunizations Not available. History of [...] Alkaline phosphatase elevation Apr 19 2015 6:56AM Payers Insurance Name Company Name Plan Name Plan Number Policy Number Policy Group Number Start Date [facility] - [facility] - [facility] Comm [id number] N/A [facility] Comm Plan of [id number] N/A History of Encounters Visit Date Visit Type Provider 04/21/2015 Office visit Jeri BISWAS 04/20/2015 Laboratory Jeri BISWAS 04/11/2015 Laboratory Jeri BISWAS 04/10/2015 Office visit Jeri BISWAS 02/28/2015 Office visit Kenneth Motta DO 11/07/2014 Office visit 11/07/2014 Office visit Karen Diane CLINICAL PROJECT LEADER 09/29/[address] JULY CHAVEZ MD 09/13/2014 Office visit Karen Diane CLINICAL PROJECT LEADER 08/09/2014 Office visit Kenneth Motta DO 07/28/2014 [facility] Kenneth Motta DO 07/22/2014 Office visit 07/22/2014 Office visit Kenneth Motta DO 06/04/2014 [facility] Ysabel Chi MD 03/28/2014 Office visit Vijay León MD 03/15/2014 [facility] Vijay León MD 03/09/2014 Office visit Dimitry García MD 03/03/2014 Surgery Vijay León MD 01/30/2014 [facility] Vijay León MD 01/27/2014 Office visit Vijay León MD 01/27/2014 [facility] Vijay León MD 01/26/2014 Office visit Vijay León MD 01/26/2014 [facility] Vijay León MD 01/12/2014 Office visit Vijay León MD 01/12/2014 [facility] Vijay León MD 01/07/2014 [facility] Vijay León MD
--- OUTSIDE RECORDS SUMMARY | 2017-02-28 01:09 | XMS REPORT ---
Author Author [facility] Organization [facility] Address [address] [place], [place] [phone] Care Team Providers Care Senior Technical Business Analyst Name Role Phone PCP Unavailable Allergies and Adverse Reactions Name Reaction Notes NO KNOWN DRUG ALLERGIES Plan of Treatment Planned Activity Comments Planned Date Planned Time Plan/Goal US EXAM PELVIC COMPLETE 09/13/2014 12:00 AM TRANSVAGINAL US NON-OB 09/13/2014 12:00 AM US EXAM PELVIC COMPLETE 11/14/2014 12:00 AM Medications Active Name Start Date [...] 106.25 lbs 63 in 18.8211 kg/m 1.4636 09/13/2014 3:04:00 PM 102 mmHg 78 mmHg [...] 12:00 AM US EXAM PELVIC COMPLETE Ordered Results Summary Data and Description Results [...] 37AM Pelvic Pain Nov 07 2014 10:52AM Payers Insurance Name Company Name Plan Name Plan Number Policy Number Policy Group Number Start Date [facility] - RH - Community Plan [facility] RHC Comm [id number] N/A [facility] Community Plan [facility] Comm Plan of [id number] N/A History of Encounters Visit Date Visit Type Provider 11/07/2014 Office visit Karen Diane INSURANCE SALES SPECIALIST 09/29/[address] JULY CHAVEZ MD 09/13/2014 Office visit Karen Diane INSURANCE SALES SPECIALIST 08/09/2014 Office visit Kenneth Motta DO 07/28/2014 [facility] Kenneth Motta DO 07/22/2014 Office visit Kenneth Motta DO 06/04/2014 [facility] Ysabel Chi MD 03/28/2014 Office visit Vijay León MD 03/15/2014 [facility] Vijay León MD 03/09/2014 Office visit Dimitry García MD 03/03/2014 Surgery Vijay León MD 01/30/2014 [facility] Vijay León MD 01/27/2014 Office visit Vijay León MD 01/27/2014 Sonia León MD 01/26/2014 Office visit Vijay León MD 01/26/2014 [facility] Vijay León MD 01/12/2014 Office visit Vijay León MD 01/12/2014 [facility] Vijay León MD 01/07/2014 [facility] Vijay León MD
--- OUTSIDE RECORDS SUMMARY | 2017-02-28 01:09 | XMS REPORT ---
Author Author Jeri Stinson [facility] Address [address] [place], [place] [phone] Care Team Providers Care Third Mate Name Role Phone Jeri Stinson PCP Allergies [...] HC BMI BSA BMI Percentile O2 Sat(%) 08/07/2015 2:23:00 PM 102 mmHg 62 mmHg [...] 2015 2:26PM Bradycardia Aug 07 2015 2:26PM Payers Insurance Name Company Name Plan Name Plan Number Policy Number Policy Group Number Start Date [facility] - RHC - Community [facility] RHC Comm [id number] N/A [facility] Community Plan [facility] Comm Plan of [id number] N/A History of Encounters Visit Date Visit Type Provider 08/07/2015 Office visit Jeri BISWAS 07/04/2015 Office visit Jeri BISWAS 06/18/2015 Hospital Ysabel Chi MD 05/24/2015 Office visit 05/24/2015 Office visit Micky Rider MD 05/09/2015 Office visit Karen Diane DOOR PANELER 05/05/2015 Office visit Jeri RUSSP 04/21/2015 Office visit Jeri BISWAS 04/20/2015 Laboratory Jeri RUSSP 04/11/2015 Laboratory Jeri RUSSP 04/10/2015 Office visit Jeri BISWAS 02/28/2015 Office visit Kenneth Motta DO 11/07/2014 Office visit 11/07/2014 Office visit Karen Diane DOOR PANELER 09/29/[address] JULY CHAVEZ MD 09/13/2014 Office visit Karen Diane DOOR PANELER 08/09/2014 Office visit Kenneth Motta DO 07/28/2014 [facility] Kenneth Motta DO 07/22/2014 Office visit 07/22/2014 Office visit Kenneth Motta DO 06/04/2014 Hospital Ysabel Chi MD 03/28/2014 Office visit Vijay León MD 03/15/2014 [facility] Vijay León MD 03/09/2014 Office visit Dimitry García MD 03/03/2014 Surgery Vijay León MD 01/30/2014 [facility] Vijay León MD 01/27/2014 Office visit Vijay León MD 01/27/2014 [facility] Vijay León MD 01/26/2014 Office visit Vijay León MD 01/26/2014 Sonia León MD 01/12/2014 Office visit Vijay León MD 01/12/2014 [facility] Vijay León MD 01/07/2014 [facility] Jorge León MD
--- OUTSIDE RECORDS SUMMARY | 2017-02-28 01:10 | XMS REPORT ---
Author Author Jeri Stinson [facility] Address [address] [place], [place] [phone] Care Team Providers Care Sfdc Solution Architect Name Role Phone Jeri Stinson PCP [...] NOT EXCEED 30 MG IN 24 HOURS Felipe Perles 100 mg oral capsule 02/07/2016 take [...] oral route once daily for 30 days paroxetine HCl 20 mg oral tablet 05/30/2016 take 1 tablet (20 mg) by oral [...] 3 times a day for 30 days Problem [...] Policy Group Number Start Date [facility] - RHC - Community Plan [facility] RHC Comm [id number] N/A [facility] Comm Plan of [id number] N/A History of Encounters Visit Date Visit Type Provider 03/26/2016 Office visit Jeri BISWAS 02/07/2016 Office visit Jeri BISWAS 01/30/2016 Office visit Jeri BISWAS 01/24/2016 Office visit Jeri BISWAS 01/17/2016 Office visit Jeri BISWAS 12/20/2015 Office visit Jeri BISWAS 11/24/2015 Office visit Jeri BISWAS 11/22/2015 Office visit Jeri BISWAS 11/20/2015 [facility] Ysabel Chi MD 11/19/2015 [facility] Ysabel Chi MD 11/16/2015 Office visit Jeri BISWAS 11/01/2015 [facility] Ysabel Chi MD 11/01/2015 Office visit Jeri BISWAS 10/26/2015 [facility] Ysabel Chi MD 08/29/2015 Office visit Jeri BISWAS 08/07/2015 Office visit Jeri BISWAS 07/04/2015 Office visit Jeri BISWAS 06/18/2015 [facility] Ysabel Chi MD 05/24/2015 Office visit 05/24/2015 Office visit Micky Rider MD 05/09/2015 Office visit Karen Diane HOME HOSPICE RN 05/05/2015 Office visit Jeri Stinson CORPORATE DIRECTOR OF PHARMACY 04/21/2015 Office visit Jeri Stinson CORPORATE DIRECTOR OF PHARMACY 04/20/2015 Laboratory Jeri IgnacioEj Stinson CORPORATE DIRECTOR OF PHARMACY 04/11/2015 Laboratory Jeri Stinson CORPORATE DIRECTOR OF PHARMACY 04/10/2015 Office visit Jeri Stinson CORPORATE DIRECTOR OF PHARMACY 02/28/2015 Office visit Kenneth Motta DO 11/07/2014 Office visit 11/07/2014 Office visit Karen Diane HOME HOSPICE RN 09/29/[address] JULY CHAVEZ MD 09/13/2014 Office visit Karen Diane HOME HOSPICE RN 08/09/2014 Office visit Kenneth Motta DO 07/28/2014 [facility] Kenneth Motta DO 07/22/2014 Office visit 07/22/2014 Office visit Kenneth Motta DO 06/04/2014 [facility] Ysabel Chi MD 03/28/2014 Office visit Vijay León MD 03/15/2014 [facility] Vijay León MD 03/09/2014 Office visit Dimitry García MD 03/03/2014 Surgery Vijay León MD 01/30/2014 [facility] Vijay León MD 01/27/2014 Office visit Vijay León MD 01/27/2014 [facility] Vijay León MD 01/26/2014 Office visit Vijay León MD 01/26/2014 [facility] Vijay León MD 01/12/2014 Office visit Vijay León MD 01/12/2014 [facility] Vijay León MD 01/07/2014 [facility] Vijay León MD
--- OUTSIDE RECORDS SUMMARY | 2017-02-28 01:10 | XMS REPORT ---
Author Author [facility] Organization [facility] Address [address] [place], [place] [id number] Care Team Providers Care Medical Information Specialist Name Role Phone PCP Unavailable Allergies and Adverse Reactions Name Reaction Notes NO KNOWN DRUG ALLERGIES Plan of Treatment Planned Activity Comments Planned Date Planned Time Plan/Goal US EXAM PELVIC COMPLETE 09/13/2014 12:00 AM TRANSVAGINAL US NON-OB 09/13/2014 12:00 AM US EXAM PELVIC COMPLETE 11/14/2014 12:00 AM COMPLETE CBC W/AUTO DIFF WBC 11/07/2014 12:00 AM COMPREHEN METABOLIC PANEL 11/07/2014 12:00 AM RBC SED RATE AUTOMATED 11/07/2014 12:00 AM C-REACTIVE PROTEIN 11/07/2014 12:00 AM IMMUNOASSAY TUMOR CA 125 11/07/2014 12:00 AM US EXAM PELVIC COMPLETE 11/07/2014 12:00 AM Medications Active Name Start [...] 12:00 AM COMPLETE CBC W/AUTO DIFF WBC Ordered 11/07/2014 12:00 AM COMPREHEN METABOLIC PANEL Ordered 11/07/2014 12:00 AM RBC SED RATE AUTOMATED Ordered 11/07/2014 12:00 AM C-REACTIVE PROTEIN Ordered 11/07/2014 12:00 AM IMMUNOASSAY TUMOR CA 125 [...] 10:26AM Weight loss Nov 07 2014 10:26AM Payers Insurance Name Company Name Plan Name Plan Number Policy Number Policy Group Number Start Date [facility] - [facility] - [facility] Comm [id number] N/A [facility] Comm Plan of [id number] N/A History of Encounters Visit Date Visit Type Provider 11/07/2014 Office visit Karen Diane APRN 09/29/[address] JULY CHAVEZ MD 09/13/2014 Office visit Karen Diane STAFFING MGR 08/09/2014 Office visit Kenneth Motta DO 07/28/2014 [facility] Kenneth Motta DO 07/22/2014 Office visit Kenneth Motta DO 06/04/2014 [facility] Ysabel Chi MD 03/28/2014 Office visit Vijay León MD 03/15/2014 [facility] Vijay León MD 03/09/2014 Office visit Dimitry García MD 03/03/2014 Surgery Vijay León MD 01/30/2014 [facility] Vijay León MD 01/27/2014 Office visit Vijay León MD 01/27/2014 [facility] Vijay León MD 01/26/2014 Office visit Vijay León MD 01/26/2014 [facility] Vijay León MD 01/12/2014 Office visit Vijay León MD 01/12/2014 [facility] Vijay León MD 01/07/2014 [facility] Vijay León MD
--- OUTSIDE RECORDS SUMMARY | 2017-02-28 01:11 | XMS REPORT ---
Author Author [facility] Organization [facility] Address [address] [place], [place] [address] Care Team Providers Care Sapphire Stylus Grinder Name Role Phone PCP Unavailable Allergies and Adverse Reactions Name Reaction Notes NO KNOWN DRUG ALLERGIES Plan of Treatment Planned Activity Comments Planned Date Planned Time Plan/Goal COMPLETE CBC W/AUTO DIFF WBC 07/22/2014 12:00 AM COMPREHEN METABOLIC PANEL 07/22/2014 12:00 AM ASSAY OF LIPASE 07/22/2014 12:00 AM ECHO EXAM OF ABDOMEN 07/22/2014 12:00 AM HEPATOBILIARY SYSTEM IMAGING 07/22/2014 12:00 AM ASSAY OF AMYLASE 07/22/2014 12:00 AM Medications Active Name Start Date Estimated Completion Date SIG Comments Percocet Oral Tablet 5-325 mg 03/03/2014 take 1 tablet by oral route every 4-6 hours as needed ibuprofen Oral Tablet 800 mg 03/03/2014 take 1 tablet by oral route every 8 hours as needed for 30 days Zoloft Oral tablet 50 mg 03/09/2014 take 1 tablet (50 mg) by oral route once daily Diflucan oral tablet 150 mg 03/14/2014 take 1 tablet (150 mg) by oral route once Name Start Date Expiration Date SIG Comments Miralax oral powder 17 gram/dose 01/12/2014 02/11/2014 take 17 gram mixed with 8 oz. water, juice, soda, coffee or tea by oral route once daily for 30 days Zofran (as hydrochloride) oral tablet 4 mg 01/12/2014 02/11/2014 take 1 tablet by oral route every 6 hours as needed for 30 days Discontinued Name Start Date Discontinued Date SIG Comments Vitamin oral tablet 03/03/2014 take 1 tablet by oral route once daily Problem List Description Status Onset Nausea Active 07/22/2014 Diarrhea Active 07/22/2014 Rectal bleeding Active 07/22/2014 weight loss Active 07/22/2014 GERD (gastroesophageal reflux disease) Active 07/22/2014 Vital Signs Date Time BP-Sys(mm[Hg] BP-Sofia(mm[Hg]) HR(bpm) RR(rpm) Temp WT HT HC BMI BSA BMI Percentile O2 Sat(%) 07/22/2014 2:39:00 PM 122 mmHg 52 mmHg [...] AM CHYLMD TRACH DNA AMP PROBE Returned Results Summary Data and Description Results [...] 0.02 03/15/2014 6:42 AM TEST UR NEGATIVE History Of Immunizations Not available. History [...] (gastroesophageal reflux disease) Jul 22 2014 2:39PM Payers Insurance Name Company Name Plan Name Plan Number Policy Number Policy Group Number Start Date [facility] - RHC - Community Plan [facility] RHC Comm [id number] N/A [facility] Community Plan [facility] Comm Plan of [id number] N/A History of Encounters Visit Date Visit Type Provider 07/22/2014 Office visit Kenneth Motta DO 03/28/2014 Office visit Vijay León MD 03/15/2014 [facility] Vijay León MD 03/09/2014 Office visit Dimitry García MD 03/03/2014 Surgery Vijay León MD 01/30/2014 [facility] Vijay León MD 01/27/2014 Office visit Vijay León MD 01/27/2014 [facility] Vijay León MD 01/26/2014 Office visit Vijay León MD 01/26/2014 [facility] Vijay León MD 01/12/2014 Office visit Vijay León MD 01/12/2014 [facility] Vijay León MD 01/07/2014 [facility] Vijay León MD
--- OUTSIDE RECORDS SUMMARY | 2017-02-28 01:11 | XMS REPORT | CCD ---
Author Author ANDREA BARRERA Organization Unknown Address [address] [facility] [address] [place], [place] [id number] Care Team Providers Care Sign Hanger Supervisor Name Role Phone DUMONT, SAMMY DO Attphys DUMONT, SAMMY DO Prisurg Vital Signs Unknown or Not Available. Allergies Allergy Code Allergy Type Reaction Status No Known Drug Allergies 0 No known drug allergies Active Procedures Unknown or Not Available. History of Immunizations Immunization Code Date Tdap 115 12/14/2013 Influenza, seasonal, injectable 141 01/30/2011 Problems Problem Code Start Date Resolved Date Status Vaginal delivery 550246020 Active Female sterilization 99715998 Active Results Unknown or Not Available. Active Medications Medication Code Dose Units Frequency Route Modification Start Date/Time Acetaminophen/Codeine 300MG-30MG Oral Tablet 583997 1 TABLET NEEDED EVERY 6 HR BY MOUTH 02/01/2014 08 :57 Prescription Detail 1 TABLET BY MOUTH NEEDED EVERY 6 HR Ibuprofen 800MG Oral Tablet 377165 800 MILLIGRAMS NEEDED EVERY 8 HR BY MOUTH 02/01/2014 08:57 Prescription Detail 800 MILLIGRAMS BY MOUTH NEEDED EVERY 8 HR Oral Tablet 356358 1 EACH DAILY ORAL 02/01/2014 08:57 Prescription Detail 1 EACH ORAL DAILY Medications Administered During Visit Unknown or Not Available. Encounters Encounter Diagnosis Diagnosis Code Start Date Headache 20766526 03/13/2015 Social History Smoking Status Code Start Date End Date Current every day smoker 222165894 Patient Decision Aids Unknown or Not Available. Discharge Instructions You were admitted to [facility] on 03/13/2015 with a principal diagnosis of Headache . You were discharged from [facility] on 03/13/2015. Should you have any questions prior to discharge, please contact a member of your healthcare team. If you have left the hospital and have any questions, please contact your primary care physician. Chief Complaint and Reason For Visit Chief Complaint Date of Onset HEADACHE VOMITING Function Status Unknown or Not Available. Plan of Care Unknown or Not Available. Referral/Transition of Care Unknown or Not Available.
--- OUTSIDE RECORDS SUMMARY | 2017-02-28 01:12 | XMS REPORT ---
Author Author Karen Diane [facility] Address [address] [facility] [address] [place], [place] [address] Care Team Providers Care Show Host Name Role Phone Karen Diane PCP Unavailable Allergies and Adverse Reactions Name Reaction Notes SULFA (SULFONAMIDES) Itching Plan of Treatment Planned Activity Comments Planned Date Planned Time Plan/Goal CT PELVIS W/O & W/DYE 05/09/2015 12:00 AM N.GONORRHOEAE DNA AMP PROB 05/09/2015 12:00 AM CHLAMYDIA CULTURE 05/09/2015 12:[address] ABD & PELV 1/> REGNS 05/12/2015 12:00 AM Medications Active Name Start Date [...] 3:54PM Pelvic Pain May 10 2015 4:15PM Payers Insurance Name Company Name Plan Name Plan Number Policy Number Policy Group Number Start Date [facility] - [facility] - [facility] Comm [id number] N/A [facility] Comm Plan of [id number] N/A History of Encounters Visit Date Visit Type Provider 05/09/2015 Office visit Karen Diane MANAGER PROPOSAL 05/05/2015 Office visit Jeri BISWAS 04/21/2015 Office visit Jeri BISWAS 04/20/2015 Laboratory Jeri BISWAS 04/11/2015 Laboratory Jeri BISWAS 04/10/2015 Office visit Jeri BISWAS 02/28/2015 Office visit Kenneth Motta DO 11/07/2014 Office visit 11/07/2014 Office visit Karen Diane MANAGER PROPOSAL 09/29/[address] JULY CHAVEZ MD 09/13/2014 Office visit Karen Diane MANAGER PROPOSAL 08/09/2014 Office visit Kenneth Motta DO 07/28/2014 [...]
--- OUTSIDE RECORDS SUMMARY | 2017-02-28 01:12 | XMS REPORT ---
Author Author [facility] Organization [facility] Address [address] [place], [place] [id number] Care Team Providers Care Cost Estimator Name Role Phone PCP Unavailable Allergies and Adverse Reactions Name Reaction Notes NO KNOWN DRUG ALLERGIES Plan of Treatment Planned Activity Comments Planned Date Planned Time Plan/Goal US EXAM PELVIC COMPLETE 09/13/2014 12:00 AM TRANSVAGINAL US NON-OB 09/13/2014 12:00 AM US EXAM PELVIC COMPLETE 09/13/2014 12:00 AM US EXAM PELVIC LIMITED 09/13/2014 12:00 AM Medications Active Name Start Date Estimated Completion Date SIG Comments Zoloft Oral tablet 50 mg 03/09/2014 take 1 tablet (50 mg) by oral route once daily Reglan oral tablet 10 mg take 1 [...] 8 hours as needed for 30 days Diflucan oral tablet 150 mg 03/14/2014 09/13/2014 take 1 tablet (150 mg) by oral route once Problem List Description Status Onset Nausea Active 07/22/2014 Diarrhea Active 07/22/2014 Rectal bleeding Active 07/22/2014 Weight loss Active 07/22/2014 GERD (gastroesophageal reflux disease) Active 07/22/2014 Vital Signs Date Time BP-Sys(mm[Hg] BP-Sofia(mm[Hg]) HR(bpm) RR(rpm) Temp WT HT HC BMI BSA BMI Percentile O2 Sat(%) 09/13/2014 3:04:00 PM 102 mmHg 78 mmHg [...] 07/22/2014 12:00 AM ASSAY OF AMYLASE Reviewed Results Summary Data and Description Results [...] 3:10PM Vaginal discharge Sep 13 2014 3:10PM Payers Insurance Name Company Name Plan Name Plan Number Policy Number Policy Group Number Start Date [facility] Comm [id number] N/A [facility] Comm Plan of [id number] N/A History of Encounters Visit Date Visit Type Provider 09/13/2014 Office visit Karen Diane REGIONAL AGRONOMIST 08/09/2014 Office visit Kenneth Motta DO 07/28/2014 [facility] Kenneth Motta DO 07/22/2014 Office visit Kenneth Motta DO 03/28/2014 Office visit Vijay León MD 03/15/2014 [facility] Vijay León MD 03/09/2014 Office visit Dimitry García MD 03/03/2014 Surgery Vijay León MD 01/30/2014 [facility] Vijay León MD 01/27/2014 Office visit Vijay León MD 01/27/2014 [facility] Vijay León MD 01/26/2014 Office visit Vijay León MD 01/26/2014 [facility] Vijay León MD 01/12/2014 Office visit Vijay León MD 01/12/2014 [facility] Vijay León MD 01/07/2014 [facility] Vijay León MD
--- OUTSIDE RECORDS SUMMARY | 2017-02-28 01:13 | XMS REPORT ---
Author Author Jeri Stinson [facility] Address [address] [facility] [address] [place], [place] [address] Care Team Providers Care Design Technology Professor Name Role Phone Jeri Stinson PCP Allergies [...] Policy Number Policy Group Number Start Date [facility] [id number] N/A [facility] Comm Plan of [id number] N/A History of Encounters Visit Date Visit Type Provider 06/05/2016 Office visit Jeri BISWAS 03/26/2016 Office visit Jeri BISWAS 02/07/2016 Office visit Jeri BISWAS 01/30/2016 Office visit Jeri BISWAS 01/24/2016 Office visit Jeri BISWAS 01/17/2016 Office visit Jeri BISWAS 12/20/2015 Office visit Jeri BISWAS 11/24/2015 Office visit Jeri BISWAS 11/22/2015 Office visit Jeri BISWAS 11/20/2015 Hospital Ysabel Chi MD 11/19/2015 [facility] Ysabel Chi MD 11/16/2015 Office visit Jeri RUSSP 11/01/2015 Hospital Ysabel Chi MD 11/01/2015 Office visit Jeri RUSSP 10/26/2015 Hospital Ysabel Chi MD 08/29/2015 Office visit Jeri Stinson DIRECTOR ACUTE 08/07/2015 Office visit Jeri Stinson DIRECTOR ACUTE 07/04/2015 Office visit Jeri RUSSP 06/18/2015 Hospital Ysabel hCi MD 05/24/2015 Office visit 05/24/2015 Office visit Micky Rider MD 05/09/2015 Office visit Karen Diane SUPERVISOR FRAME SAMPLE AND PATTERN 05/05/2015 Office visit Jeri Stinson DIRECTOR ACUTE 04/21/2015 Office visit Jeri RUSSP 04/20/2015 Laboratory Jeri Stinson DIRECTOR ACUTE 04/11/2015 Laboratory Jeri RUSSP 04/10/2015 Office visit Jeri Stinson DIRECTOR ACUTE 02/28/2015 Office visit Kenneth Motta DO 11/07/2014 Office visit 11/07/2014 Office visit Karen Diane SUPERVISOR FRAME SAMPLE AND PATTERN 09/29/[address] JULY CHAVEZ MD 09/13/2014 Office visit Karen Diane SUPERVISOR FRAME SAMPLE AND PATTERN 08/09/2014 Office visit Kenneth Motta DO 07/28/2014 [facility] Kenneth Motta DO 07/22/2014 Office visit 07/22/2014 Office visit Kenneth Motta DO 06/04/2014 [facility] Ysabel Chi MD 03/28/2014 Office visit [...]
--- OUTSIDE RECORDS SUMMARY | 2017-02-28 01:13 | XMS REPORT | CCD ---
Author Author ALEXIS ROTHMAN Unknown Address [address] [facility] [address] [place] [address] Care Team Providers Care Maintenance Service Dispatcher Name Role Phone MIRTA RUDOLPH, CHAU Auguste Attphyfarhad MIRTA RUDOLPH, CHAU Leonsusonia Allergies Allergy Code Allergy Type Reaction Status No Known Drug Allergies 0 Drug allergy Active Active Medications Medication Code Dose Units Frequency Route Modification Start Date/Time Acetaminophen/Codeine 300MG-30MG Oral Tablet 775726 1 TABLET NEEDED EVERY 6 HR BY MOUTH 02/01/2014 08 :57 Prescription Detail 1 TABLET BY MOUTH NEEDED EVERY 6 HR Ibuprofen 800MG Oral Tablet 598117 800 MILLIGRAMS NEEDED EVERY 8 HR BY MOUTH 02/01/2014 08:57 Prescription Detail 800 MILLIGRAMS BY MOUTH NEEDED EVERY 8 HR Oral Tablet 261387 1 EACH DAILY ORAL 02/01/2014 08:57 Prescription Detail 1 EACH ORAL DAILY Problems Problem Code Start Date Resolved Date Status Vaginal delivery 676690398 Active Female sterilization 19946591 Active Procedures Procedure Code Procedure Type Date ABDOMEN 2 VIEW DECUB/UPRIGHT 395051893 SNOMED CT 2015 C REACTIVE PROTEIN 51742838 SNOMED CT 03/23/2016 COMPREHENSIVE METABOLIC PANEL 801584194 SNOMED CT 2015 CBC W/ AUTO DIFF (RFLX MAN DIFF IF IND) 1066194 SNOMED CT 03/23/2016 UA ROUTINE C&S IF IND 774114945 SNOMED CT 03/23/2016 TEST URINE 971655504 SNOMED CT 03/23/2016 ^CBC W/AUTO DIFF 3773935 SNOMED CT 03/23/2016 ^UA AUTO DIPSTICK ONLY 001208804 SNOMED CT 03/23/2016 Results COMPREHENSIVE METABOLIC PANEL [...] BILI 1975-2 0.5 MG/DL L=0.0 H=1.5 CALCIUM 20086-1 9.4 MG/DL L=8.2 H=10.6 AGE 30 yrs GFR NonAA 84 GFR AA 102 eGFR >60 N/A eGFR AA* >60 N/A CBC W/ AUTO DIFF (RFLX MAN DIFF IF IND) - Collect Date/Time: 03/23/2016 01:30 Test Name Code Test Result Test Units Test Ref Range WBC 37132-6 6.6 TH/CMM L=4.5 H=10.8 RBC 789-8 4.35 [...] Date End Date Current every day smoker 989460508 Vital Signs Unknown or Not Available. Function Status Unknown or Not Available. Goals Unknown or Not Available. ASSESSMENTS Unknown or Not Available. Health Concerns Section Unknown or Not Available.
--- OUTSIDE RECORDS SUMMARY | 2017-02-28 01:14 | XMS REPORT ---
Author Author Karen Diane [facility] Address [address] [facility] [address] [place], [place] [address] Care Team Providers Care Cattle Manager Name Role Phone Karen Diane PCP Unavailable Allergies and Adverse Reactions Name Reaction Notes SULFA (SULFONAMIDES) Itching Plan of Treatment Planned Activity Comments Planned Date Planned Time Plan/Goal N.GONORRHOEAE DNA AMP PROB 05/09/2015 12:00 AM CHLAMYDIA CULTURE 05/09/2015 12:[address] ABD & PELV /> REGNS 05/12/2015 12:00 AM Medications Active Name [...] AM CT PELVIS W/O & W/DYE Returned 01/12/2014 12:00 AM CYTOPATH C/V THIN [...] Policy Number Policy Group Number Start Date [facility] - [facility] - Community [facility] Comm [id number] N/A [facility] Comm Plan of [id number] N/A History of Encounters Visit Date Visit Type Provider 05/09/2015 Office visit Karen Diane ATM MECHANIC 05/05/2015 Office visit Jeri BISWAS 04/21/2015 Office visit Jeri BISWAS 04/20/2015 Laboratory Jeri BISWAS 04/11/2015 Laboratory Jeri BISWAS 04/10/2015 Office visit Jeri BISWAS 02/28/2015 Office visit Kenneth Motta DO 11/07/2014 Office visit 11/07/2014 Office visit Karen Diane ATM MECHANIC 09/29/[address] JULY CHAVEZ MD 09/13/2014 Office visit Karen Diane APRN 08/09/2014 Office visit Kenneth Motta DO 07/28/2014 [facility] Kenneth Motta DO 07/22/2014 Office visit 07/22/2014 Office visit Kenneth Motta DO 06/04/2014 [facility] Ysabel Chi MD 03/28/2014 Office visit Vijay León MD 03/15/2014 [facility] Vijay León MD 03/09/2014 Office visit Dimitry García MD 03/03/2014 Surgery Vijay León MD 01/30/2014 [facility] Vijay León MD 01/27/2014 Office visit Vijay León MD 01/27/2014 [facility] Vijay León MD 01/26/2014 Office visit Vijay León MD 01/26/2014 [facility] Vijay León MD 01/12/2014 Office visit Vijay León MD 01/12/2014 [facility] Vijay León MD 01/07/2014 [facility] Vijay León MD
--- OUTSIDE RECORDS SUMMARY | 2017-02-28 01:15 | XMS REPORT ---
Author Author Jeri Stinson [facility] Address [address] [facility] [address] [place], [place] [address] Care Team Providers Care Help Desk Administrator Name Role Phone Jeri Stinson PCP Allergies [...] times a day as needed for itching fluticasone 50 mcg/actuation nasal spray,suspension 11/24/2015 inhale 2 sprays (100 mcg) in each nostril by intranasal route once daily cetirizine 10 mg oral tablet 11/24/2015 take 1 tablet (10 mg) by oral route once daily as needed Latuda 20 mg oral tablet take 1 tablet (20 mg) by oral route once daily with food (at least 350 calories) for 30 days Name Start Date Expiration [...] 30 days Prozac 20 mg oral capsule 2015 12/21/2015 take 1 capsule (20 mg) by oral route once daily in the morning for 30 days [facility] discontinued with start of Latuda - prozac was effective Lexapro 10 mg oral tablet 12/20/2015 take 1 tablet (10 mg) by oral route once daily Problem List [...] HC BMI BSA BMI Percentile O2 Sat(%) 12/20/2015 3:22:00 PM 104 mmHg 58 mmHg [...] Returned Results Summary Data and Description Results 12/18/1999 [...] the skin, subcu Dec 20 2015 3:25PM Payers Insurance Name Company Name Plan Name Plan Number Policy Number Policy Group Number Start Date [facility] - RHC - Community Plan [facility] RHC Comm [id number] N/A [facility] Community [facility] Comm Plan of [id number] N/A History of Encounters Visit Date Visit Type Provider 12/20/2015 Office visit Jeri BISWAS 11/24/2015 Office visit Jeri BISWAS 11/22/2015 Office visit Jeri BISWAS 11/20/2015 Hospital Ysabel Chi MD 11/19/2015 [facility] Ysabel Chi MD 11/16/2015 Office visit Jeri BISWAS 11/01/2015 [facility] Ysabel Chi MD 11/01/2015 Office visit Jeri BISWAS 10/26/2015 [facility] Ysabel Chi MD 08/29/2015 Office visit Jeri BISWAS 08/07/2015 Office visit Jeri BISWAS 07/04/2015 Office visit Jeri BISWAS 06/18/2015 [facility] Ysabel Chi MD 05/24/2015 Office visit 05/24/2015 Office visit Micky Rider MD 05/09/2015 Office visit Karen Diane APRN 05/05/2015 Office visit Jeri BISWAS 04/21/2015 Office visit Jeri BISWAS 04/20/2015 Laboratory Jeri BISWAS 04/11/2015 Laboratory Jeri BISWAS 04/10/2015 Office visit Jeri Stinson EUCLID OPERATOR 02/28/2015 Office visit Kenneth Motta DO 11/07/2014 Office visit 11/07/2014 Office visit Karen Diane MARKET BASKET MAKER 09/29/[address] JULY CHAVEZ MD 09/13/2014 Office visit Karen Diane MARKET BASKET MAKER 08/09/2014 Office visit Kenneth Motta DO 07/28/2014 Hospital Kenneth Motta DO 07/22/2014 Office visit 07/22/2014 Office visit Kenneth Motta DO 06/04/2014 [facility] Ysabel Chi MD 03/28/2014 Office visit Vijay León MD 03/15/2014 [facility] Vijay León MD 03/09/2014 Office visit Dimitry García MD 03/03/2014 Surgery Vijay León MD 01/30/2014 [facility] Vijay León MD 01/27/2014 Office visit Vijay León MD 01/27/2014 [facility] Vijay León MD 01/26/2014 Office visit Vijay León MD 01/26/2014 [facility] Vijay León MD 01/12/2014 Office visit Vijay León MD 01/12/2014 [facility] Vijay León MD 01/07/2014 [facility] Vijay León MD
--- OUTSIDE RECORDS SUMMARY | 2017-02-28 01:17 | XMS REPORT ---
Author Author Jeri Stinson [facility] Address [address] [facility] [facility] [address] [place], [place] [address] Care Team Providers Care Care Assistant Name Role Phone Jeri Stinson PCP Allergies [...] times per day as needed for cough Name Start Date Expiration Date SIG [...] HC BMI BSA BMI Percentile O2 Sat(%) 02/07/2016 1:54:00 PM 104 mmHg 54 mmHg [...] bronchitis, unspecified organism Feb 07 2016 1:56PM Payers Insurance Name Company Name Plan Name Plan Number Policy Number Policy Group Number Start Date [facility] - RHC - Community Plan [facility] RHC Comm [id number] N/A [facility] Community Plan [facility] Comm Plan of [id number] N/A History of Encounters Visit Date Visit Type Provider 02/07/2016 Office visit Jeri BISWAS 01/30/2016 Office visit Jeri BISWAS 01/24/2016 Office visit Jeri BISWAS 01/17/2016 Office visit Jeri BISWAS 12/20/2015 Office visit Jeri BISWAS 11/24/2015 Office visit Jeri BISWAS 11/22/2015 Office visit Jeri BISWAS 11/20/2015 Hospital Ysabel Chi MD 11/19/2015 [facility] Ysabel Chi MD 11/16/2015 Office visit Jeri BISWAS 11/01/2015 Hospital Ysabel Chi MD 11/01/2015 Office visit Jeri BISWAS 10/26/2015 [facility] Ysabel Chi MD 08/29/2015 Office visit Jeri BISWAS 08/07/2015 Office visit Jeri BISWAS 07/04/2015 Office visit Jeri BISWAS 06/18/2015 [facility] Ysabel Chi MD 05/24/2015 Office visit 05/24/2015 [...] 07/22/2014 Office visit Kenneth Motta DO 06/04/2014 [facility] Ysabel Chi MD 03/28/2014 Office visit Vijay León MD 03/15/2014 [facility] Vijay León MD 03/09/2014 Office visit Dimitry García MD 03/03/2014 Surgery Vijay León MD 01/30/2014 [facility] Vijay León MD 01/27/2014 Office visit Vijay León MD 01/27/2014 [facility] Vijay León MD 01/26/2014 Office visit Vijay León MD 01/26/2014 [facility] Vijay León MD 01/12/2014 Office visit Vijay León MD 01/12/2014 [facility] Vijay León MD 01/07/2014 [facility] Vijay León MD
--- OUTSIDE RECORDS SUMMARY | 2017-02-28 01:18 | XMS REPORT ---
Author Author [facility] Organization [facility] Address [address] [place], [place] [address] Care Team Providers Care Policy Analyst Name Role Phone PCP Unavailable Allergies [...] 2:03PM Pelvic Pain Sep 13 2014 4:03PM Payers Insurance Name Company Name Plan Name Plan Number Policy Number Policy Group Number Start Date [facility] - Community [facility] Comm [id number] N/A [facility] Comm Plan of [id number] N/A History of Encounters Visit Date Visit Type Provider 09/13/2014 Office visit Karen Diane APRN 08/09/2014 Office visit Kenneth Motta DO 07/28/2014 [facility] Kenneth Motta DO 07/22/2014 Office visit Kenneth Motta DO 03/28/2014 Office visit Vijay León MD 03/15/2014 [facility] Vijay León MD 03/09/2014 Office visit Dimitry García MD 03/03/2014 Surgery Vijay León MD 01/30/2014 [facility] Vijay León MD 01/27/2014 Office visit Vijay León MD 01/27/2014 [facility] Vijay León MD 01/26/2014 Office visit Vijay León MD 01/26/2014 [facility] Vijay León MD 01/12/2014 Office visit Vijay León MD 01/12/2014 [facility] Vijay León MD 01/07/2014 [facility] Vijay León MD
--- OUTSIDE RECORDS SUMMARY | 2017-02-28 01:19 | XMS REPORT ---
Author Author Jeri Stinson [facility] Address [address] [facility] [address] [place], [place] [address] Care Team Providers Care Whey Department Operator Name Role Phone Jeri Stinson PCP Allergies and Adverse Reactions Name Reaction Notes SULFA (SULFONAMIDES) Itching Plan of Treatment Planned Activity Comments Planned Date Planned Time Plan/Goal CBC W/ AUTO DIFF (RFLX MAN DIFF IF IND). 04/11/2015 12:00 AM COMPREHENSIVE METABOLIC PANEL 04/11/2015 12:00 AM TSH 04/11/2015 12:00 AM EKG (12-lead electrocardiogram) 08/07/2015 12:00 AM Total iron binding capacity measurement 11/01/2015 12:00 AM Est patient - Linq [...] HC BMI BSA BMI Percentile O2 Sat(%) 01/30/2016 2:23:00 PM 104 mmHg 62 mmHg [...] 10:48AM Nasopharyngitis acute Jan 30 2016 2:25PM Payers Insurance Name Company Name Plan Name Plan Number Policy Number Policy Group Number Start Date [facility] [id number] N/A [facility] Comm Plan of [id number] N/A History of Encounters Visit Date Visit Type Provider 01/30/2016 Office visit Jeri BISWAS 01/24/2016 Office visit Jeri BISWAS 01/17/2016 Office visit Jeri BISWAS 12/20/2015 Office visit Jeri BISWAS 11/24/2015 Office visit Jeri BISWAS 11/22/2015 Office visit Jeri BISWAS 11/20/2015 Hospital Ysabel Chi MD 11/19/2015 [facility] Ysabel Chi MD 11/16/2015 Office visit Jeri BISWAS 11/01/2015 [facility] Ysabel Chi MD 11/01/2015 Office visit Jeri RUSSP 10/26/2015 Hospital Ysabel Chi MD 08/29/2015 Office visit Jeri Stinson AUTOMOBILE SALES REPRESENTATIVE 08/07/2015 Office visit Jeri Stinson AUTOMOBILE SALES REPRESENTATIVE 07/04/2015 Office visit Jeri Stinson AUTOMOBILE SALES REPRESENTATIVE 06/18/2015 Hospital Ysabel Chi MD 05/24/2015 Office visit 05/24/2015 Office visit Micky Rider MD 05/09/2015 Office visit Karen Diane SKIRT CLIPPER 05/05/2015 Office visit Jeri Stinson AUTOMOBILE SALES REPRESENTATIVE 04/21/2015 Office visit Jeri Stinson AUTOMOBILE SALES REPRESENTATIVE 04/20/2015 Laboratory Jeri Stinson AUTOMOBILE SALES REPRESENTATIVE 04/11/2015 Laboratory Jeri Stinson AUTOMOBILE SALES REPRESENTATIVE 04/10/2015 Office visit Jeri Stinson AUTOMOBILE SALES REPRESENTATIVE 02/28/2015 Office visit Kenneth Motta DO 11/07/2014 Office visit 11/07/2014 Office visit Karen Diane SKIRT CLIPPER 09/29/[address] JULY CHAVEZ MD 09/13/2014 Office visit Karen Diane SKIRT CLIPPER 08/09/2014 Office visit Kenneth Motta DO 07/28/2014 Hospital Kenneth Motta DO 07/22/2014 Office visit 07/22/2014 Office visit Kenneth Motta DO 06/04/2014 [facility] Ysabel Chi MD 03/28/2014 Office visit Vijay León MD 03/15/2014 [facility] Vijay León MD 03/09/2014 Office visit Dimitry García MD 03/03/2014 Surgery Vijay León MD 01/30/2014 [facility] Vijay León MD 01/27/2014 Office visit Vijay León MD 01/27/2014 [facility] Vijay León MD 01/26/2014 Office visit Vijay León MD 01/26/2014 [facility] Vijay León MD 01/12/2014 Office visit Vijay León MD 01/12/2014 [facility] Vijay León MD 01/07/2014 [facility] Vijay León MD
--- OUTSIDE RECORDS SUMMARY | 2017-02-28 01:21 | XMS REPORT ---
Author Author Jeri Stinson [facility] Address [address] [place], [place] [address] Care Team Providers Care Financial Analysis Consultant Name Role Phone Jeri Stinson PCP Allergies [...] 1 TABLET BY MOUTH DAILY AT BEDTIME rizatriptan 10 mg oral tablet 07/24/2016 TAKE 1 TABLET BY MOUTH ONCE DAILY * *MAY REPEAT AT 2 HOURS INTERVALS; DO NOT EXCEED 30 MG IN 24 HOURS cetirizine 10 mg oral tablet 08/01/2016 09/30/2016 take 1 tablet (10 mg) by oral route once daily as needed for 30 days paroxetine HCl 30 mg oral tablet 08/01/2016 take 1 tablet (30 mg) by oral [...] oral route once daily for 90 days Discontinued Name Start Date Discontinued Date [...] Policy Number Policy Group Number Start Date [facility] - [facility] [id number] [facility] Comm Plan of [id number] N/A History of Encounters Visit Date Visit Type Provider 06/05/2016 Office visit Jeri BISWAS 03/26/2016 Office visit Jeri BISWAS 02/07/2016 Office visit Jeri BISWAS 01/30/2016 Office visit Jeri BISWAS 01/24/2016 Office visit Jeri BISWAS 01/17/2016 Office visit Jeri BISWAS 12/20/2015 Office visit Jeri BISWAS 11/24/2015 Office visit Jeri BISWAS 11/22/2015 Office visit Jeri BISWAS 11/20/2015 Hospital Ysabel Chi MD 11/19/2015 [facility] Ysabel Chi MD 11/16/2015 Office visit Jeri RUSSP 11/01/2015 Hospital Ysabel Chi MD 11/01/2015 Office visit Jeri RUSSP 10/26/2015 Hospital Ysabel Chi MD 08/29/2015 Office visit Jeri Stinson ESTIMATOR BINDING 08/07/2015 Office visit Jeri Stinson ESTIMATOR BINDING 07/04/2015 Office visit Jeri RUSSP 06/18/2015 Hospital Ysabel Chi MD 05/24/2015 Office visit 05/24/2015 Office visit Micky Rider MD 05/09/2015 Office visit Karen Diane MAILER APPRENTICE 05/05/2015 Office visit Jeri Stinson ESTIMATOR BINDING 04/21/2015 Office visit Jeri RUSSP 04/20/2015 Laboratory Jeri Stinson ESTIMATOR BINDING 04/11/2015 Laboratory Jeri RUSSP 04/10/2015 Office visit Jeri Stinson ESTIMATOR BINDING 02/28/2015 Office visit Kenneth Motta DO 11/07/2014 Office visit 11/07/2014 Office visit Karen Diane MAILER APPRENTICE 09/29/[address] JULY CHAVEZ MD 09/13/2014 Office visit Karen Diane MAILER APPRENTICE 08/09/2014 Office visit Kenneth Motta DO 07/28/2014 [facility] Kenneth Motta DO 07/22/2014 Office visit 07/22/2014 Office visit Kenneth Motta DO 06/04/2014 [facility] Ysabel Chi MD 03/28/2014 Office visit Vijay León MD 03/15/2014 [facility] Vijay León MD 03/09/2014 Office visit Dimitry García MD 03/03/2014 Surgery Vijay León MD 01/30/2014 [facility] Vijay León MD 01/27/2014 Office visit Vijay León MD 01/27/2014 [facility] Vijay León MD 01/26/2014 Office visit Vijay León MD 01/26/2014 [facility] Vijay León MD 01/12/2014 Office visit Vijay León MD 01/12/2014 [facility] Vijay León MD 01/07/2014 [facility] Vijay León MD
--- OUTSIDE RECORDS SUMMARY | 2017-02-28 01:22 | XMS REPORT ---
Author Author Jeri Stinson [facility] Address [address] [facility] [address] [place], [place] [address] Care Team Providers Care Director Reactor Projects Name Role Phone Jeri Stinson PCP Allergies [...] Number Policy Group Number Start Date [facility] - [facility] - Community Plan [facility] RHC Comm [id number] N/A [facility] Community Plan [facility] Comm Plan of [id number] N/A History of Encounters Visit Date Visit Type Provider 03/26/2016 Office visit Jeri BISWAS 02/07/2016 Office visit Jeri BISWAS 01/30/2016 Office visit Jeri BISWAS 01/24/2016 Office visit Jeri BISWAS 01/17/2016 Office visit Jeri BISWAS 12/20/2015 Office visit Jeri BISWAS 11/24/2015 Office visit Jeri BISWAS 11/22/2015 Office visit Jeri BISWAS 11/20/2015 [facility] Ysabel Chi MD 11/19/2015 [facility] [...] Jeri BISWAS 04/21/2015 Office visit Jeri Stinson SCREEN MAKING SUPERVISOR 04/20/2015 Laboratory Jeri Stinson SCREEN MAKING SUPERVISOR 04/11/2015 Laboratory Jeri Stinson SCREEN MAKING SUPERVISOR 04/10/2015 Office visit Jeri Stinson SCREEN MAKING SUPERVISOR 02/28/2015 Office visit Kenneth Ángela DO 11/07/2014 Office visit 11/07/2014 Office visit Karen Diane WATER JET LOOM FIXER 09/29/[address] JULY CHAVEZ MD 09/13/2014 Office visit Karen Diane WATER JET LOOM FIXER 08/09/2014 Office visit Kenneth Motta DO 07/28/2014 [...]
--- OUTSIDE RECORDS SUMMARY | 2017-02-28 01:23 | XMS REPORT ---
Author Author [facility] Organization [facility] Address [address] [place], [place] [address] Care Team Providers Care Clutch Inspector Name Role Phone PCP Unavailable Allergies and [...] by oral route once daily Problem List Not available. Vital Signs Date Time BP-Sys(mm[Hg] BP-Sofia(mm[Hg]) HR(bpm) RR(rpm) Temp WT HT HC BMI BSA BMI Percentile O2 Sat(%) 03/28/2014 11:46:00 AM 114 mmHg 63 mmHg [...] Headache Head Injury, Closed at age 16 Care, High Risk Jan 12 2014 4:42PM [...] 2014 2:33PM Vomiting Jul 22 2014 2:33PM Payers Insurance Name Company Name Plan Name Plan Number Policy Number Policy Group Number Start Date [facility] - [facility] - [facility] Comm [id number] N/A [facility] Comm Plan of [id number] N/A History of Encounters Visit Date Visit [...]
--- OUTSIDE RECORDS SUMMARY | 2017-02-28 01:24 | XMS REPORT ---
Author Author Jeri Stinson [facility] Address [address] [facility] [address] [place], [place] [phone] Care Team Providers Care Beverage Specialist Name Role Phone Jeri Stinson PCP Allergies and Adverse Reactions Name Reaction Notes SULFA (SULFONAMIDES) Itching Plan of Treatment Planned Activity Comments Planned Date Planned Time Plan/Goal COMPLETE CBC W/AUTO DIFF WBC 04/11/2015 12:00 AM COMPREHEN METABOLIC PANEL 04/11/2015 12:00 AM ASSAY THYROID STIM HORMONE 04/11/2015 12:00 AM Medications Active Name Start Date [...] HC BMI BSA BMI Percentile O2 Sat(%) 07/04/2015 10:29:00 AM 59 bpm 20 rpm [...] 04/19/2015 12:00 AM ASSAY OF GGT Returned 01/12/2014 12:00 AM CYTOPATH C/V THIN [...] 2015 8:48AM Fatigue Jul 27 2015 8:48AM Payers Insurance Name Company Name Plan Name Plan Number Policy Number Policy Group Number Start Date [facility] Community [facility] Comm [id number] N/A [facility] Comm Plan of [id number] N/A History of Encounters Visit Date Visit Type Provider 07/04/2015 Office visit Jeri BISWAS 05/24/2015 Office visit 05/24/2015 Office visit Micky Rider MD 05/09/2015 Office visit Karen Diane INSTRUCTIONAL MEDIA SERVICES TECHNICIAN 05/05/2015 Office visit Jeri BISWAS 04/21/2015 Office visit Jeri BISWAS 04/20/2015 Laboratory Jeri BISWAS 04/11/2015 Laboratory Jeri BISWAS 04/10/2015 Office visit Jeri BISWAS 02/28/2015 Office visit Kenneth Motta DO 11/07/2014 Office visit 11/07/2014 Office visit Karen Diane INSTRUCTIONAL MEDIA SERVICES TECHNICIAN 09/29/[address] JULY CHAVEZ MD 09/13/2014 Office visit Karen Diane INSTRUCTIONAL MEDIA SERVICES TECHNICIAN 08/09/2014 Office visit Kenneth Motta DO [...]
--- OUTSIDE RECORDS SUMMARY | 2017-02-28 01:25 | XMS REPORT ---
Author Author Jeri Stinson [facility] Address [address] [place], [place] [address] Care Team Providers Care Dinkey Press Operator Name Role Phone Jeri Stinson PCP [...] 2015 10:59AM Vertigo Nov 01 2015 10:59AM Payers Insurance Name Company Name Plan Name Plan Number Policy Number Policy Group Number Start Date [facility] - [facility] - Community Plan [facility] Comm [id number] N/A [facility] Comm Plan of [id number] N/A History of Encounters Visit Date Visit Type Provider 11/16/2015 Office visit Jeri BISWAS 11/01/2015 Office visit Jeri BISWAS 08/29/2015 Office visit Jeri BISWAS 08/07/2015 Office visit Jeri BISWAS 07/04/2015 Office visit Jeri BISWAS 06/18/2015 [facility] Ysabel Chi MD 05/24/2015 Office visit 05/24/2015 Office visit Micky Rider MD 05/09/2015 Office visit Karen Diane DOCTOR OF NAPRAPATHIC MEDICINE 05/05/2015 Office visit Jeri BISWAS 04/21/2015 Office visit Jeri BISWAS 04/20/2015 Laboratory Jeri BISWAS 04/11/2015 Laboratory Jeri BISWAS 04/10/2015 Office visit Jeri BISWAS 02/28/2015 Office visit Kenneth Motta DO 11/07/2014 Office visit 11/07/2014 Office visit Karen Diane DOCTOR OF NAPRAPATHIC MEDICINE 09/29/[address] JULY CHAVEZ MD 09/13/2014 Office visit Karen Diane APRN 08/09/2014 Office visit Kenneth Motta DO 07/28/2014 [facility] Kenneth Motta DO 07/22/2014 Office visit 07/22/2014 Office visit Kenneth Motta DO 06/04/2014 [facility] Ysabel Chi MD 03/28/2014 Office visit Vijay León MD 03/15/2014 [facility] Vijay León MD 03/09/2014 Office visit Dimitry García MD 03/03/2014 Surgery Vijay León MD 01/30/2014 [facility] Vijay León MD 01/27/2014 Office visit Vijay León MD 01/27/2014 [facility] Vijay León MD 01/26/2014 Office visit Vijay León MD 01/26/2014 [facility] Vijay León MD 01/12/2014 Office visit Vijay León MD 01/12/2014 [facility] Vijay León MD 01/07/2014 [facility] Vijay León MD
--- OUTSIDE RECORDS SUMMARY | 2017-02-28 01:26 | XMS REPORT ---
Author Author [facility] Organization [facility] Address [address] [place], [place] [address] Care Team Providers Care Bonbon Cream Warmer Name Role Phone PCP Unavailable Allergies and [...] Returned 09/29/2014 10:43 AM URINE TEST Reviewed Results Summary Data and Description Results [...] test, negative result Sep 29 2014 10:43AM Payers Insurance Name Company Name Plan Name Plan Number Policy Number Policy Group Number Start Date [facility] - RHC - Community Plan [facility] RHC Comm [id number] N/A [facility] Community Plan [facility] Comm Plan of [id number] N/A History of Encounters Visit Date Visit Type Provider 09/29/[address] JULY HCAVEZ MD 09/13/2014 Office visit Karen Diane APRN 08/09/2014 Office visit Kenneth Motta DO 07/28/2014 [facility] Kenneth Motta DO 07/22/2014 Office visit Kenneth Motta DO 03/28/2014 Office visit Vijay León MD 03/15/2014 [facility] Vijay León MD 03/09/2014 Office visit Dimitry García MD 03/03/2014 Surgery Vijay León MD 01/30/2014 [facility] Vijay León MD 01/27/2014 Office visit Vijay León MD 01/27/2014 [facility] Vijay León MD 01/26/2014 Office visit Vijay León MD 01/26/2014 [facility] Vijay León MD 01/12/2014 Office visit Vijay León MD 01/12/2014 [facility] Vijay León MD 01/07/2014 [facility] Vijay León MD
--- OUTSIDE RECORDS SUMMARY | 2017-02-28 01:27 | XMS REPORT ---
Author Author Jeri Stinson [facility] Address [address] [facility] [address] [place], [place] [address] Care Team Providers Care Self Contained Behavior Unit Teacher Name Role Phone Jeri Stinson PCP Allergies [...] by oral route once daily as needed fluoxetine 20 mg oral tablet 01/17/2016 05/16/2016 take 1 tablet by oral route 2 times a day for 30 days Name Start Date Expiration [...] (at least 350 calories) for 30 days Problem List Description Status [...] HC BMI BSA BMI Percentile O2 Sat(%) 01/17/2016 10:51:00 AM 110 mmHg 62 mmHg 67 bpm 14 rpm 97.1 F 114.75 lbs 63 in 20.33 kg/m2 1.52 m2 100 % 12/20/2015 3:22:00 PM 104 mmHg 58 mmHg 44 bpm 12 rpm 97.7 F 115.5 lbs 63 in 20.4597 kg/m 1.526 m 100 % 11/24/2015 9:20:00 AM [...] Depression with anxiety Jan 17 2016 10:53AM Payers Insurance Name Company Name Plan Name Plan Number Policy Number Policy Group Number Start Date [facility] - [facility] - [facility] Comm [id number] N/A [facility] Comm Plan of [id number] N/A History of Encounters Visit Date Visit Type Provider 01/17/2016 Office visit Jeri BISWAS 12/20/2015 Office visit Jeri BISWAS 11/24/2015 Office visit Jeri BISWAS 11/22/2015 Office visit Jeri BISWAS 11/20/2015 Hospital Ysabel Chi MD 11/19/2015 [facility] Ysabel Chi MD 11/16/2015 Office visit Jeri BISWAS 11/01/2015 [facility] Ysabel Chi MD 11/01/2015 Office visit Jeri BISWAS 10/26/2015 [facility] Ysabel Chi MD 08/29/2015 Office visit Jeri Stinson CELLULOSE INSULATION HELPER 08/07/2015 Office visit Jeri Stinson CELLULOSE INSULATION HELPER 07/04/2015 Office visit Jeri RUSSP 06/18/2015 [facility] Ysabel Chi MD 05/24/2015 Office visit 05/24/2015 Office visit Micky Rider MD 05/09/2015 Office visit Karen Diane TIME STUDY ENGINEER 05/05/2015 Office visit Jeri SandeeEj Stinson CELLULOSE INSULATION HELPER 04/21/2015 Office visit Jeri SandeeEj Stinson CELLULOSE INSULATION HELPER 04/20/2015 Laboratory Jeri SandeeEj Stinson CELLULOSE INSULATION HELPER 04/11/2015 Laboratory Jeri SandeeEj Stinson CELLULOSE INSULATION HELPER 04/10/2015 Office visit Jeri Stinson CELLULOSE INSULATION HELPER 02/28/2015 Office visit Kenneth Motta DO 11/07/2014 Office visit 11/07/2014 Office visit Karen Diane TIME STUDY ENGINEER 09/29/[address] JULY CHAVEZ MD 09/13/2014 Office visit Karen Diane TIME STUDY ENGINEER 08/09/2014 Office visit Kenneth Motta DO 07/28/2014 [facility] Kenneth Motta DO 07/22/2014 Office visit 07/22/2014 Office visit Kenneth Motta DO 06/04/2014 [facility] Ysabel Chi MD 03/28/2014 Office [...]
--- OUTSIDE RECORDS SUMMARY | 2017-02-28 01:28 | XMS REPORT ---
Author Author Jeri Stinson [facility] Address [address] [facility] [address] [place], [place] [address] Care Team Providers Care Religious Education Teacher Name Role Phone Jeri Stinson PCP Allergies and Adverse Reactions Name Reaction Notes SULFA (SULFONAMIDES) Itching Plan of Treatment Planned Activity Comments Planned Date Planned Time Plan/Goal CT THORAX W/DYE 04/21/2015 12:00 AM US EXAM ABDOM COMPLETE 04/21/2015 12:00 AM ACUTE HEPATITIS PANEL 04/21/2015 12:00 AM Medications Active Name Start Date [...] liver function tests Apr 21 2015 11:01AM Payers Insurance Name Company Name Plan Name Plan Number Policy Number Policy Group Number Start Date [facility] - C - Community [facility] RHC Comm [id number] N/A [facility] Community Plan [facility] Comm Plan of [id number] N/A History of Encounters Visit Date Visit Type Provider 04/21/2015 Office visit Jeri RUSSP 04/20/2015 Laboratory Jeri RUSSP 04/11/2015 Laboratory Jeri RUSSP 04/10/2015 Office visit Jeri RUSSP 02/28/2015 Office visit Kenneth Motta DO 11/07/2014 Office visit 11/07/2014 Office visit Karen Diane POWDER CARRIER 09/29/[address] JULY CHAVEZ MD 09/13/2014 Office visit Karen Diane POWDER CARRIER 08/09/2014 Office visit Kenneth Motta DO 07/28/2014 [facility] Kenneth Motta DO 07/22/2014 Office visit 07/22/2014 Office visit Kenneth Motta DO 06/04/2014 [facility] Ysabel Chi MD 03/28/2014 Office visit Vijay León MD 03/15/2014 [facility] Vijay León MD 03/09/2014 Office visit Dimitry García MD 03/03/2014 Surgery Vijay León MD 01/30/2014 [facility] Vijay León MD 01/27/2014 Office visit Vijay León MD 01/27/2014 Sonia León MD 01/26/2014 Office visit Vijay León MD 01/26/2014 [facility] Vijay León MD 01/12/2014 Office visit Vijay León MD 01/12/2014 [facility] Vijay León MD 01/07/2014 [facility] Vijay León MD
--- OUTSIDE RECORDS SUMMARY | 2017-02-28 01:28 | XMS REPORT | CCD ---
Author Author MICHELLE FLORES Organization Unknown Address [address] [place], [place] [address] Care Team Providers Care A Auxiliary Name Role Phone MONTGOMERY ER, WAQAS DO Attphys MONTGOMERY ER, WAQAS DO Prisurg Vital Signs Unknown or Not Available. Allergies Allergy Code Allergy Type Reaction Status No Known Drug Allergies 0 No known drug allergies Active Procedures Procedure Code Procedure Type Date CX CHEST [address] 10/26/2015 RAPID DRUG SCREEN 099083484 SNOMED [address] 10/26/[address] 10/26/[address] 10/26/2015 UA ROUTINE C&S IF IND 950001246 SNOMED CT 10/26/[address] 10/26/2015 C REACTIVE PROTEIN 95668761 SNOMED CT 10/26/2015 TROPONIN-I ADV 836885925 SNOMED CT 10/26/2015 COMPREHENSIVE METABOLIC PANEL 576029118 SNOMED CT 2015 CBC W/ AUTO DIFF (RFLX MAN DIFF IF IND) 8561050 SNOMED CT 10/26/2015 HOLTER MONITOR UP TO [address] 2015 ^UA AUTO DIPSTICK ONLY 510552276 SNOMED CT 10/26/2015 ^CBC W/AUTO DIFF 2589770 SNOMED CT 10/26/2015 History of Immunizations Immunization Code Date Tdap 115 12/14/2013 Influenza, seasonal, injectable, preservative free 140 2013 Influenza, seasonal, injectable, preservative free 140 2015 Influenza, seasonal, injectable 141 01/30/2011 Problems Problem Code Start Date Resolved Date Status Vaginal delivery 428743613 Active Female sterilization 98839803 Active Results COMPREHENSIVE METABOLIC PANEL - Collect Date/Time: 10/26/2015 23:07 Test Name Code Test Result Test Units Test Ref Range GLUCOSE 2345-7 101 MG/DL L=70 H=100 SODIUM 2951-2 139 MEQ/L L=135 H=148 POTASSIUM 2823-3 3.5 MEQ/L L=3.5 H=5.3 CHLORIDE 2075-0 106 MEQ/L L=96 H=110 CO2 2028-9 24 MEQ/L L=22 H=29 BUN 3094-0 8 MG/DL L=8 H=22 CREATININE 2160-0 0.8 MG/DL L=0.6 H=1.6 SGOT/AST 1920-8 15 IU/L L=10 H=40 SGPT/ALT 1742-6 17 IU/L L=8 H=54 ALK PHOS 6768-6 102 IU/L L=35 H=115 TOTAL PROTEIN 2885-2 6.1 G/DL L=5.5 H=8.5 ALBUMIN 1751-7 4.0 G/DL L=3.1 H=5.4 TOTAL BILI 1975-2 0.4 MG/DL L=0.0 H=1.5 CALCIUM 54103-2 8.6 MG/DL L=8.2 H=10.6 AGE 29 yrs GFR NonAA 85 GFR AA 103 eGFR >60 N/A eGFR AA* >60 N/A RAPID DRUG SCREEN - Collect Date/Time: 10/26/2015 23:45 Test Name Code Test Result Test Units [...] MAN DIFF IF IND) - Collect Date/Time: 10/26/2015 23:07 Test Name Code Test Result Test Units Test Ref Range WBC 88393-4 6.7 TH/CMM L=4.5 H=10.8 RBC 789-8 3.87 ML/CMM L=4.20 H=5.40 HGB 718-7 11.0 G/DL L=12.0 H=16.0 HCT 4544-3 34.1 % L=37.0 H=47.0 MCV 88 FL L=81 H=99 MCH 28.4 PG L=27.0 H=33.0 MCHC 32.3 G/DL L=31.0 H=36.0 RDW SD 45 FL L=36 H=50 RDW CV 13.8 % L=0.0 H=14.8 MPV 10.9 FL L=9.3 H=12.5 PLT 777-3 183 TH/CMM L=130 H=440 NRBC# 0.00 TH/CMM L=0.00 H=0.00 NRBC% 0.0 /100WBC L=0.0 H=2.0 %NEUT 58.0 % %LYMP 31.0 % %MONO 9.5 % %EOS 1.0 % %BASO 0.4 % #NEUT 3.90 TH/CMM L=2.10 H=8.20 #LYMP 2.09 TH/CMM L=0.90 H=5.20 #MONO 0.64 TH/CMM L=0.16 H=1.00 #EOS 0.07 TH/CMM L=0.00 H=0.80 #BASO 0.03 TH/CMM L=0.00 H=0.20 MANUAL DIFF NOT IND N/A UA ROUTINE C&S IF IND - Collect Date/Time: 10/26/2015 23:45 Test Name Code Test Result Test Units Test Ref Range COLOR YELLOW N/A NL: YELLOW APPEARANCE CLEAR N/A NL: CLEAR SPEC GRAV 1.020 N/A NL: 1.002 - 1.022 pH 6.0 N/A NL: 5 - 9 PROTEIN NEGATIVE N/A NL: NEGATIVE mg/dl GLUCOSE NEGATIVE N/A NL: NEGATIVE mg/dl KETONE NEGATIVE N/A NL: NEGATIVE mg/dl BILIRUBIN NEGATIVE N/A NL: NEGATIVE BLOOD NEGATIVE N/A NL: NEGATIVE NITRITE NEGATIVE N/A NL: NEGATIVE LEUK SCREEN NEGATIVE N/A NL: NEGATIVE MICRO INDICATED? NOT INDICATED N/A C REACTIVE PROTEIN - Collect Date/Time: 10/26/2015 23:07 Test Name Code Test Result Test Units Test Ref Range C REACTIVE PROTEIN 1988-5 <0.5 MG/DL L=0.0 H= 1.0 TEST - Collect Date/Time: 10/26/2015 23:07 Test Name Code Test Result Test Units Test Ref Range TEST 8-8 NEGATIVE N/A TROPONIN-I ADV - Collect Date/Time: 10/26/2015 23:07 Test Name Code Test Result Test Units [place] [address]-5 <0.04 ng/mL L=0.04 H= 0.40 TSH - Collect Date/Time: 10/26/2015 23:07 Test Name Code Test Result Test Units Test Ref Range TSH 38969-0 0.52 mIU/L L=0.35 H=4.94 MAGNESIUM - Collect Date/Time: 10/26/2015 23:07 Test Name Code Test Result Test Units Test Ref Range MAGNESIUM 46320-4 1.9 MG/DL L=1.7 H=2.8 Active Medications Medication Code Dose Units Frequency Route Modification Start Date/Time Acetaminophen/Codeine 300MG-30MG Oral Tablet 278078 1 TABLET NEEDED EVERY 6 HR BY MOUTH 02/01/2014 08 :57 Prescription Detail 1 TABLET BY MOUTH NEEDED EVERY 6 HR Ibuprofen 800MG Oral Tablet 548710 800 MILLIGRAMS NEEDED EVERY 8 HR BY MOUTH 02/01/2014 08:57 Prescription Detail 800 MILLIGRAMS BY MOUTH NEEDED EVERY 8 HR Oral Tablet 341750 1 EACH DAILY ORAL 02/01/2014 08:57 Prescription Detail 1 EACH ORAL DAILY Medications Administered During Visit Unknown or Not Available. Encounters Encounter Diagnosis Diagnosis Code Start Date Bradycardia 32451571 10/26/2015 Social History Smoking Status Code Start Date End Date Current every day smoker 812740317 Patient Decision Aids Unknown or Not Available. Discharge Instructions You were admitted to [facility] on 10/26/2015 22:40 with a principal diagnosis of Bradycardia, unspecified You had the following tests done: C REACTIVE PROTEIN CBC W/ AUTO DIFF (RFLX MAN DIFF IF IND) COMPREHENSIVE METABOLIC PANEL MAGNESIUM TEST RAPID DRUG SCREEN TROPONIN-I ADV TSH UA ROUTINE C&S IF IND You were discharged from [facility] on 10/27/2015 01:49 Should you have any questions prior to discharge, please contact a member of your healthcare team. If you have left the hospital and have any questions, please contact your primary care physician. Chief Complaint and Reason For Visit Chief Complaint Date of Onset CHEST PAIN Function Status Unknown or Not Available. Plan of Care Unknown or Not Available. Referral/Transition of Care Unknown or Not Available.
--- OUTSIDE RECORDS SUMMARY | 2017-02-28 01:28 | XMS REPORT | CCD ---
Author Author ALEXIS ROTHMAN Unknown Address [address] [facility] [address] [place], [place] [address] Care Team Providers Care Nutrition Manager Name Role Phone MIRTA RUDOLPH, CHAU Auguste Attphyfarhad CHAU KIRBY MD Vital Signs Unknown or Not Available. Allergies [...] Start Date Resolved Date Status Vaginal delivery 869130528 Active Female sterilization 20545055 Active Results Unknown or Not Available. Active Medications Medication Code Dose Units Frequency Route Modification Start Date/Time Acetaminophen/Codeine 300MG-30MG Oral Tablet 935305 1 TABLET NEEDED EVERY 6 HR BY MOUTH 02/01/2014 08 :57 Prescription Detail 1 TABLET BY MOUTH NEEDED EVERY 6 HR Ibuprofen 800MG Oral Tablet 430030 800 MILLIGRAMS NEEDED EVERY 8 HR BY MOUTH 02/01/2014 08:57 Prescription Detail 800 MILLIGRAMS BY MOUTH NEEDED EVERY 8 HR Oral Tablet 757752 1 EACH DAILY ORAL 02/01/2014 08:57 Prescription Detail 1 EACH ORAL DAILY Medications Administered During Visit Unknown or Not Available. Encounters Encounter Diagnosis Diagnosis Code Start Date Puncture wound of ankle 561164118 09/17/2015 Social History Smoking Status Code Start Date End Date Current every day smoker 706312607 Patient Decision Aids Unknown or Not Available. Discharge Instructions You were admitted to [facility] on 09/17/2015 22:05 with a principal diagnosis of Puncture wound without foreign body, right ankle, initial encounter You were discharged from [facility] on 09/18/2015 02:00 Should you have any questions prior to discharge, please contact a member of your healthcare team. If you have left the hospital and have any questions, please contact your primary care physician. Chief Complaint and Reason For Visit Chief Complaint Date of Onset DOG BITE Function Status Unknown or Not Available. Plan of Care Unknown or Not Available. Referral/Transition of Care Unknown or Not Available.
--- OUTSIDE RECORDS SUMMARY | 2017-02-28 01:29 | XMS REPORT ---
Author Micky Kaiser [facility] Address [address] [place], [place] [id number] Care Team Providers Care Requisition Approver Name Role Phone Micky Rider PCP Unavailable [...] oral route once daily for 8 weeks Maxalt 10 mg oral tablet 06/12/2015 take 1 tablet (10 mg) by oral route once, may repeat at 2 hour intervals; do not exceed 30 mg in 24 hours Name Start Date Expiration Date SIG Comments [...] 30 days Ultram 50 mg oral tablet 05/09/2015 05/16/2015 [...] Returned 05/24/2015 10:16 AM URINE TEST Reviewed 01/12/2014 [...] migrainosus, not intractable May 05 2015 10:54AM Payers Insurance Name Company Name Plan Name Plan Number Policy Number Policy Group Number Start Date [facility] Comm [id number] N/A [facility] Plan of [place] [facility] Comm Plan of [id number] N/A History of Encounters Visit Date Visit Type Provider 05/24/2015 Office visit 05/24/2015 Office visit Micky Rider MD 05/09/2015 Office visit Karen Diane BACKFILLER 05/05/2015 Office visit Jeri Stinson MARKET INTELLIGENCE CONSULTANT 04/21/2015 Office visit Jeri Stinson MARKET INTELLIGENCE CONSULTANT 04/20/2015 Laboratory Jeri Stinson MARKET INTELLIGENCE CONSULTANT 04/11/2015 Laboratory Jeri Stinson MARKET INTELLIGENCE CONSULTANT 04/10/2015 Office visit Jeri Stinson MARKET INTELLIGENCE CONSULTANT 02/28/2015 Office visit Kenneth Motta DO 11/07/2014 Office visit 11/07/2014 Office visit Karen Diane BACKFILLER 09/29/[address] JULY CHAVEZ MD 09/13/2014 Office visit Karen Diane BACKFILLER 08/09/2014 Office visit Kenneth Motta DO 07/28/2014 Hospital Kenneth Motta DO 07/22/2014 Office visit 07/22/2014 Office visit Kenneth Motta DO 06/04/2014 [facility] Ysabel Chi MD 03/28/2014 Office visit Vijay León MD 03/15/2014 [facility] Vijay León MD 03/09/2014 Office visit Dimitry García MD 03/03/2014 Surgery Vijay León MD 01/30/2014 Sonia León MD 01/27/2014 Office visit Vijay León MD 01/27/2014 [facility] Vijay León MD 01/26/2014 Office visit Vijay León MD 01/26/2014 [facility] Vijay León MD 01/12/2014 Office visit Vijay León MD 01/12/2014 [facility] Vijay León MD 01/07/2014 [facility] Vijay León MD
--- OUTSIDE RECORDS SUMMARY | 2017-02-28 01:31 | XMS REPORT ---
Author Author Jeri Stinson [facility] Address [address] [place], [place] [id number] Care Team Providers Care Woodyard Crane Operator Name Role Phone Jeri Stinson PCP [...] Group Number Start Date [facility] - RHC - Community Plan [facility] RHC Comm [id number] N/A [facility] Community Plan [facility] Comm Plan of [id number] N/A History of Encounters Visit Date Visit [...] Rider MD 05/09/2015 Office visit Karen Diane LAB SCIENTIST 05/05/2015 Office visit Jeri BISWAS 04/21/2015 Office visit Jeri BISWAS 04/20/2015 Laboratory Jeri BISWAS 04/11/2015 Laboratory Jeri BISWAS 04/10/2015 Office visit Jeri BISWAS 02/28/2015 Office visit Kenneth Motta DO 11/07/2014 Office visit 11/07/2014 Office visit Karen Diane LAB SCIENTIST 09/29/[address] JULY CHAVEZ MD 09/13/2014 Office visit Karen Diane LAB SCIENTIST 08/09/2014 Office visit Kenneth Motta DO 07/28/2014 Hospital Kenneth Motta DO 07/22/2014 Office visit 07/22/2014 Office visit Kenneth Motta DO 06/04/2014 Hospital Ysabel Chi MD 03/28/2014 Office visit Vijay León MD 03/15/2014 Hospital Vijay León MD 03/09/2014 Office visit Dimitry García MD 03/03/2014 Surgery Vijay León MD 01/30/2014 [facility] Vijay León MD 01/27/2014 Office visit Vijay León MD 01/27/2014 [facility] Vijay León MD 01/26/2014 Office visit Vijay León MD 01/26/2014 [facility] Vijay León MD 01/12/2014 Office visit Vijay León MD 01/12/2014 [facility] Vijay León MD 01/07/2014 [facility] Vijay León MD
--- OUTSIDE RECORDS SUMMARY | 2017-02-28 01:32 | XMS REPORT ---
Author Author Jeri Stinson [facility] Address [address] [place], [place] [address] Care Team Providers Care Commercial Lines Underwriter Name Role Phone Jeri Stinson PCP Allergies [...] Policy Number Policy Group Number Start Date [facility] - RHC - Community Plan [facility] RHC Comm [id number] N/A [facility] Community [facility] Comm Plan of [id number] N/A History of Encounters Visit Date Visit Type Provider 12/20/2015 Office visit Jeri BISWAS 11/24/2015 Office visit Jeri BISWAS 11/22/2015 Office visit Jeri BISWAS 11/20/2015 Hospital Ysabel Chi MD 11/19/2015 [facility] Ysabel Chi MD 11/16/2015 Office visit Jeri BISWAS 11/01/2015 [facility] Ysabel Chi MD 11/01/2015 Office visit Jeri BISWAS 10/26/2015 [facility] Ysabel Chi MD 08/29/2015 Office visit Jeri BISWAS 08/07/2015 Office visit Jeri BISWAS 07/04/2015 Office visit Jeri BISWAS 06/18/2015 [facility] Ysabel Chi MD 05/24/2015 Office visit 05/24/2015 Office visit Micky Rider MD 05/09/2015 Office visit Karen Diane APRN 05/05/2015 Office visit Jeri BISWAS 04/21/2015 Office visit Jeri BISWAS 04/20/2015 Laboratory Jeri BISWAS 04/11/2015 Laboratory Jeri BISWAS 04/10/2015 Office visit Jeri Stinson ORACLE SOLUTIONS ARCHITECT 02/28/2015 Office visit Kenneth Motta DO 11/07/2014 Office visit 11/07/2014 Office visit Karen Diane PERFORMANCE IMPROVEMENT SPECIALIST 09/29/[address] JULY CHAVEZ MD 09/13/2014 Office visit Karen Diane PERFORMANCE IMPROVEMENT SPECIALIST 08/09/2014 Office visit Kenneth Motta DO 07/28/2014 Hospital Kenneth Motta DO 07/22/2014 Office visit 07/22/2014 Office visit Kenneth Motta DO 06/04/2014 [facility] Ysabel Chi MD 03/28/2014 Office visit Vijay León MD 03/15/2014 [facility] Vijay León MD 03/09/2014 Office visit [...]
--- OUTSIDE RECORDS SUMMARY | 2017-02-28 01:34 | XMS REPORT ---
Author Author Jeri Stinson [facility] Address [address] [facility] [address] [place], [place] [address] Care Team Providers Care Job Placement Counselor Name Role Phone Jeri Stinson PCP Allergies [...] Policy Group Number Start Date [facility] - RHC - Community [facility] RHC Comm [id number] N/A [facility] Comm Plan of [id number] N/A History of Encounters Visit Date Visit Type Provider 03/26/2016 Office visit Jeri BISWAS 02/07/2016 Office visit Jeri BISWAS 01/30/2016 Office visit Jeri BISWAS 01/24/2016 Office visit Jeri BISWAS 01/17/2016 Office visit Jeri BISWAS 12/20/2015 Office visit Jeri BISWAS 11/24/2015 Office visit Jeri BISWAS 11/22/2015 Office visit Jeri BISWAS 11/20/2015 Hospital Ysabel Chi MD 11/19/2015 [facility] Ysabel Chi MD 11/16/2015 Office visit Jeri BISWAS 11/01/2015 [facility] Ysabel Chi MD 11/01/2015 Office visit Jeri BISWAS 10/26/2015 [facility] Ysabel Chi MD 08/29/2015 Office visit Jeri BISWAS 08/07/2015 Office visit Jeri BISWAS 07/04/2015 Office visit Jeri BISWAS 06/18/2015 Hospital Ysabel Chi MD 05/24/2015 Office visit 05/24/2015 Office visit Micky Rider MD 05/09/2015 Office visit Karen Diane APRN 05/05/2015 Office visit Jeri BISWAS 04/21/2015 Office visit Jeri BISWAS 04/20/2015 Laboratory Jrei BISWAS 04/11/2015 Laboratory Jeri BISWAS 04/10/2015 Office visit Jeri BISWAS 02/28/2015 Office visit Kenneth Motta DO 11/07/2014 Office visit 11/07/2014 Office visit Karen Diane DIRECTOR MEDICAL ECONOMICS 09/29/[address] JULY CHAVEZ MD 09/13/2014 Office visit Karen Diane DIRECTOR MEDICAL ECONOMICS 08/09/2014 Office visit Kenneth Motta DO 07/28/2014 Hospital Kenneth Motta DO 07/22/2014 Office visit 07/22/2014 Office visit Kenneth Motta DO 06/04/2014 [facility] Ysabel Chi MD 03/28/2014 Office visit Vijay León MD 03/15/2014 [facility] Vijay León MD 03/09/2014 Office visit Dimitry García MD 03/03/2014 Surgery Vijay León MD 01/30/2014 [facility] Vijay León MD 01/27/2014 Office visit Vijay León MD 01/27/2014 [facility] Vijay León MD 01/26/2014 Office visit Vijay León MD 01/26/2014 [facility] Vijay León MD 01/12/2014 Office visit Vijay León MD 01/12/2014 [facility] Vijay León MD 01/07/2014 [facility] Vijay León MD
--- OUTSIDE RECORDS SUMMARY | 2017-02-28 01:35 | XMS REPORT | CCD ---
Author Author MICHELLE FLORES Organization Unknown Address [address] [facility] [address] [place], [place] [address] Care Team Providers Care Bridal Stylist Sales Consultant Name Role Phone MIRTA RUDOLPH, CHAU Auguste Attphyfarhad CHAU KIRBY MD Vital Signs Unknown or Not Available. Allergies Allergy Code Allergy Type Reaction Status No Known Drug Allergies 0 No known drug allergies Active Procedures Procedure Code Procedure Type Date CX CHEST [address] 11/01/[address] 11/01/[address] 11/01/2015 D DIMER QUANT 206201622 SNOMED CT 11/01/2015 C REACTIVE PROTEIN 15534914 SNOMED CT 11/01/2015 TROPONIN-I ADV 017784314 SNOMED CT 11/01/2015 CBC W/ AUTO DIFF (RFLX MAN DIFF IF IND) 2243787 SNOMED CT 11/01/2015 COMPREHENSIVE METABOLIC PANEL 601116164 SNOMED CT 2015 ^CBC W/AUTO DIFF 5218396 SNOMED CT 11/01/2015 History of Immunizations Immunization Code Date Tdap 115 12/14/2013 Influenza, seasonal, injectable, preservative free 140 2013 Influenza, seasonal, injectable, preservative free 140 2015 Influenza, seasonal, injectable 141 01/30/2011 Problems Problem Code Start Date Resolved Date Status Vaginal delivery 770065739 Active Female sterilization 64904418 Active Results COMPREHENSIVE METABOLIC PANEL - Collect Date/Time: 11/01/2015 19:20 Test Name Code Test Result Test Units Test Ref Range GLUCOSE 2345-7 101 MG/DL L=70 H=100 SODIUM 2951-2 139 MEQ/L L=135 H=148 POTASSIUM 2823-3 2.9 MEQ/L L=3.5 H=5.3 CHLORIDE 2075-0 104 MEQ/L L=96 H=110 CO2 2028-9 25 MEQ/L L=22 H=29 BUN 3094-0 6 MG/DL L=8 H=22 CREATININE 2160-0 0.8 MG/DL L=0.6 H=1.6 SGOT/AST 1920-8 17 IU/L L=10 H=40 SGPT/ALT 1742-6 20 IU/L L=8 H=54 ALK PHOS 6768-6 96 IU/L L=35 H=115 TOTAL PROTEIN 2885-2 7.1 G/DL L=5.5 H=8.5 ALBUMIN 1751-7 4.5 G/DL L=3.1 H=5.4 TOTAL BILI 1975-2 0.8 MG/DL L=0.0 H=1.5 CALCIUM 38680-4 9.7 MG/DL L=8.2 H=10.6 AGE 29 yrs GFR NonAA 85 GFR AA 103 eGFR >60 N/A eGFR AA* >60 N/A CBC W/ AUTO DIFF (RFLX MAN DIFF IF IND) - Collect Date/Time: 11/01/2015 19:20 Test Name Code Test Result Test Units Test Ref Range WBC 38455-0 5.9 TH/CMM L=4.5 H=10.8 RBC 789-8 4.34 ML/CMM L=4.20 H=5.40 HGB 718-7 12.2 G/DL L=12.0 H=16.0 HCT 4544-3 37.9 % L=37.0 H=47.0 MCV 87 FL L=81 H=99 MCH 28.1 PG L=27.0 H=33.0 MCHC 32.2 G/DL L=31.0 H=36.0 RDW SD 45 FL L=36 H=50 RDW CV 13.9 % L=0.0 H=14.8 MPV 11.3 FL L=9.3 H=12.5 PLT 777-3 174 TH/CMM L=130 H=440 NRBC# 0.00 TH/CMM L=0.00 H=0.00 NRBC% 0.0 /100WBC L=0.0 H=2.0 %NEUT 60.7 % %LYMP 28.8 % %MONO 9.6 % %EOS 0.2 % %BASO 0.5 % #NEUT 3.61 TH/CMM L=2.10 H=8.20 #LYMP 1.71 TH/CMM L=0.90 H=5.20 #MONO 0.57 TH/CMM L=0.16 H=1.00 #EOS 0.01 TH/CMM L=0.00 H=0.80 #BASO 0.03 TH/CMM L=0.00 H=0.20 MANUAL DIFF NOT IND N/A D DIMER QUANT - Collect Date/Time: 11/01/2015 19:20 Test Name Code Test Result Test Units Test Ref Range D-DIMER QUANT 13571-4 0.26 MG/L FEU L=0.00 H= 0.50 C REACTIVE PROTEIN - Collect Date/Time: 11/01/2015 19:20 Test Name Code Test Result Test Units Test Ref Range C REACTIVE PROTEIN 1988-5 <0.5 MG/DL L=0.0 H= 1.0 TEST - Collect Date/Time: 11/01/2015 19:20 Test Name Code Test Result Test Units Test Ref Range TEST 8-8 NEGATIVE N/A TROPONIN-I ADV - Collect Date/Time: 11/01/2015 19:20 Test Name Code Test Result Test Units [place] [address]-8 <0.04 ng/mL L=0.04 H= 0.40 MAGNESIUM - Collect Date/Time: 11/01/2015 19:20 Test Name Code Test Result Test Units Test Ref Range MAGNESIUM 70189-7 2.1 MG/DL L=1.7 H=2.8 Active Medications Medication Code Dose Units Frequency Route Modification Start Date/Time Acetaminophen/Codeine 300MG-30MG Oral Tablet 203393 1 TABLET NEEDED EVERY 6 HR BY MOUTH 02/01/2014 08 :57 Prescription Detail 1 TABLET BY MOUTH NEEDED EVERY 6 HR Ibuprofen 800MG Oral Tablet 297483 800 MILLIGRAMS NEEDED EVERY 8 HR BY MOUTH 02/01/2014 08:57 Prescription Detail 800 MILLIGRAMS BY MOUTH NEEDED EVERY 8 HR Oral Tablet 556420 1 EACH DAILY ORAL 02/01/2014 08:57 Prescription Detail 1 EACH ORAL DAILY Medications Administered During Visit Unknown or Not Available. Encounters Encounter Diagnosis Diagnosis Code Start Date Epigastric pain 46692223 11/01/2015 Social History Smoking Status Code Start Date End Date Current every day smoker 931933735 Patient Decision Aids Unknown or Not Available. Discharge Instructions You were admitted to [facility] on 11/01/2015 18:51 with a principal diagnosis of Epigastric pain You had the following tests done: C REACTIVE PROTEIN CBC W/ AUTO DIFF (RFLX MAN DIFF IF IND) COMPREHENSIVE METABOLIC PANEL D DIMER QUANT MAGNESIUM TEST TROPONIN-I ADV You were discharged from [facility] on 11/01/2015 21:46 Should you have any questions prior to discharge, please contact a member of your healthcare team. If you have left the hospital and have any questions, please contact your primary care physician. Chief Complaint and Reason For Visit Chief Complaint Date of Onset DIZZINESS CHEST PAIN VOMITING Function Status Unknown or Not Available. Plan of Care Unknown or Not Available. Referral/Transition of Care Unknown or Not Available.
--- OUTSIDE RECORDS SUMMARY | 2017-02-28 01:35 | XMS REPORT ---
Author Author [facility] Organization [facility] Address [address] [place], [place] [address] Care Team Providers Care Drain Cleaner Plumber Name Role Phone PCP Unavailable Allergies and [...] Start Date [facility] - Community [facility] RHC Comm [id number] N/A [facility] Comm Plan of [id number] N/A History of Encounters Visit Date Visit Type Provider 11/07/2014 Office visit Karen Diane DOCTOR OF DENTAL SURGERY 09/29/[address] JULY CHAVEZ MD 09/13/2014 Office visit Karen Diane DOCTOR OF DENTAL SURGERY 08/09/2014 Office visit Kenneth Motta DO 07/28/2014 [facility] Kenneth Motta DO 07/22/2014 Office visit Kenneth Motta DO 06/04/2014 [facility] Ysabel Chi MD 03/28/2014 Office visit Vjiay León MD 03/15/2014 [facility] Vijay [...]
--- OUTSIDE RECORDS SUMMARY | 2017-02-28 01:36 | XMS REPORT ---
Author Author Jeri Stinson [facility] Address [address] [place], [place] [address] Care Team Providers Care Bulb Tester Name Role Phone Jeri Stinson PCP Allergies [...] migrainosus, not intractable Jul 04 2015 10:30AM Payers Insurance Name Company Name Plan Name Plan Number Policy Number Policy Group Number Start Date [facility] Comm [id number] N/A [facility] Comm Plan of [id number] N/A History of Encounters Visit Date Visit Type Provider 07/04/2015 Office visit Jeri BISWAS 05/24/2015 Office visit 05/24/2015 Office visit Micky Rider MD 05/09/2015 Office visit Karen Diane MOTOR BUS DRIVER 05/05/2015 Office visit Jeri BISWAS 04/21/2015 Office visit Jeri RUSSP 04/20/2015 Laboratory Jeri BISWAS 04/11/2015 Laboratory Jeri RUSSP 04/10/2015 Office visit Jeri BISWAS 02/28/2015 Office visit Kenneth Motta DO 11/07/2014 Office visit 11/07/2014 Office visit Karen Diane MOTOR BUS DRIVER 09/29/[address] JULY CHAVEZ MD 09/13/2014 Office visit Karen Diane MOTOR BUS DRIVER 08/09/2014 Office visit Kenneth Motta DO 07/28/2014 [facility] Kenneth Motta DO 07/22/2014 Office visit 07/22/2014 Office visit Kenneth Motta DO 06/04/2014 [facility] Ysabel Chi MD 03/28/2014 Office visit Vijay León MD 03/15/2014 [facility] Vijay León MD 03/09/2014 Office visit Dimitry García MD 03/03/2014 Surgery Vijay León MD 01/30/2014 [facility] Vijay León MD 01/27/2014 Office visit Vijay León MD 01/27/2014 Sonia León MD 01/26/2014 Office visit Vijay León MD 01/26/2014 [facility] Vijay León MD 01/12/2014 Office visit Vijay León MD 01/12/2014 [facility] Vijay León MD 01/07/2014 [facility] Vijay León MD
[2017-02-28] MEDS ORDERED: NS IV 1000 ML 1,000 ML IV ONE (01:37)
--- OUTSIDE RECORDS SUMMARY | 2017-02-28 01:37 | XMS REPORT ---
Author Author Jeri Stinson [facility] Address [address] [facility] [address] [place], [place] [address] Care Team Providers Care General Practitioner Name Role Phone Jeri Stinson PCP Allergies [...] Policy Number Policy Group Number Start Date [facility] - RHC - Community Plan [facility] RHC Comm [id number] N/A [facility] Comm Plan of [id number] N/A History of Encounters Visit Date Visit [...] MD 05/09/2015 Office visit Karen Diane MANAGER TESTING 05/05/2015 Office visit Jeri Stinson CARPENTER SUPERVISOR 04/21/2015 Office visit Jeri Stinson CARPENTER SUPERVISOR 04/20/2015 Laboratory Jeri IgnacioEj Stinson CARPENTER SUPERVISOR 04/11/2015 Laboratory Jeri Stinson CARPENTER SUPERVISOR 04/10/2015 Office visit Jeri Stinson CARPENTER SUPERVISOR 02/28/2015 Office visit Kenneth Motta DO 11/07/2014 Office visit 11/07/2014 Office visit Karen Diane MANAGER TESTING 09/29/[address] JULY CHAVEZ MD 09/13/2014 Office visit Karen Diane MANAGER TESTING 08/09/2014 Office visit Kenneth Motta DO 07/28/2014 [facility] Kenneth Motta DO 07/22/2014 Office visit [...]
--- OUTSIDE RECORDS SUMMARY | 2017-02-28 01:39 | XMS REPORT ---
Author Author Jeri Stinson [facility] Address [address] [facility] [address] [place], [place] [address] Care Team Providers Care Project Officer Name Role Phone Jeri Stinson PCP Allergies [...] Policy Number Policy Group Number Start Date [facility] - RHC - Community Plan [facility] RHC Comm [id number] N/A [facility] Community [facility] Comm Plan of [id number] N/A History of Encounters Visit Date Visit Type Provider 12/20/2015 Office visit Jeri BISWAS 11/24/2015 Office visit Jeri BISWAS 11/22/2015 Office visit Jeri BISWAS 11/20/2015 Hospital Ysabel Chi MD 11/19/2015 [facility] Ysabel Chi MD 11/16/2015 Office visit Jeri BISWAS 11/01/2015 [facility] Ysabel Chi MD 11/01/2015 Office visit Jeri BISWAS 10/26/2015 [facility] Ysabel Chi MD 08/29/2015 Office visit Jeri BISWAS 08/07/2015 Office visit Jeri BISWAS 07/04/2015 Office visit Jeri BISWAS 06/18/2015 [facility] Ysabel Chi MD 05/24/2015 Office visit 05/24/2015 Office visit Micky Rider MD 05/09/2015 Office visit Karen Diane APRN 05/05/2015 Office visit Jeri BISWAS 04/21/2015 Office visit Jeri BISWAS 04/20/2015 Laboratory Jeri BISWAS 04/11/2015 Laboratory Jeri BISWAS 04/10/2015 Office visit Jeri Stinson CODING COMPLIANCE AUDITOR 02/28/2015 Office visit Kenneth Motta DO 11/07/2014 Office visit 11/07/2014 Office visit Karen Diane RESTAURANT HOSPITALITY MANAGER 09/29/[address] JULY CHAVEZ MD 09/13/2014 Office visit Karen Diane RESTAURANT HOSPITALITY MANAGER 08/09/2014 Office visit Kenneth Motta DO 07/28/2014 Hospital Kenneth Motta DO 07/22/2014 Office visit 07/22/2014 Office visit Kenneth Motta DO 06/04/2014 [facility] Ysabel Chi MD 03/28/2014 Office visit Vijay León MD 03/15/2014 [facility] Vijay León MD 03/09/2014 Office visit Dimitry García MD 03/03/2014 Surgery Vijay León MD 01/30/2014 [facility] Vijay León MD 01/27/2014 Office visit Vijay León MD 01/27/2014 [facility] Vijay León MD 01/26/2014 Office visit Vijay León MD 01/26/2014 [facility] Vijay León MD 01/12/2014 Office visit Vijay León MD 01/12/2014 [facility] Vijay León MD 01/07/2014 [facility] Vijay León MD
--- OUTSIDE RECORDS SUMMARY | 2017-02-28 01:40 | XMS REPORT ---
Author Author Jeri Stinson [facility] Address [address] [facility] [address] [place], [place] [address] Care Team Providers Care Registry Rn Name Role Phone Jeri Stinson PCP Allergies and Adverse Reactions Name Reaction Notes SULFA (SULFONAMIDES) Itching Plan of Treatment Planned Activity Comments Planned Date Planned Time Plan/Goal ASSAY OF GGT 04/19/2015 12:00 AM Medications Active Name Start Date [...] Surface Ab, Qual Reactive Index Value 04/11/2015 2:31 PM TSH 0.40 uIU/mLWBC 5.1 RBC 4.40 HGB 13.10 g/dLHCT 40.50 % MCV 92.0 fLMCH 29.80 pgMCHC 32.30 g/dLRDW CV 13.30 %MPV 11.50 fLPLT 213 %NEUT 55.40 %%LYMP 34.20 %%MONO 8.40 %%EOS 1.20 %%BASO 0.80 %#NEUT 2.85 #LYMP 1.76 # MONO 0.43 #EOS 0.06 #BASO 0.04 COLOR YELLOW APPEARANCE CLEAR SPEC GRAV [...] Policy Group Number Start Date [facility] - Community [facility] RHC Comm [id number] N/A [facility] Comm Plan of [id number] N/A History of Encounters Visit Date Visit Type Provider 04/11/2015 Laboratory Jeri BISWAS 04/10/2015 Office visit Jeri BISWAS 02/28/2015 Office visit Kenneth Motta DO 11/07/2014 Office visit 11/07/2014 Office visit Karen Diane NON CATEGORICAL PRESCHOOL TEACHER 09/29/[address] JULY CHAVEZ MD 09/13/2014 Office visit Karen Diane NON CATEGORICAL PRESCHOOL TEACHER 08/09/2014 Office visit Kenneth Motta DO 07/28/2014 [...] Center Vijay León MD 01/27/2014 Office visit Vijya León MD 01/27/2014 [facility] Vijay León MD 01/26/2014 Office visit Vijay León MD 01/26/2014 [facility] Vijay León MD 01/12/2014 Office visit Vijay León MD 01/12/2014 [facility] Vijay León MD 01/07/2014 [facility] Vijay León MD
--- OUTSIDE RECORDS SUMMARY | 2017-02-28 01:40 | XMS REPORT ---
Author Author [facility] Organization [facility] Address [address] [facility] [address] [place], [place] [address] Care Team Providers Care Esthetician Facialist Name Role Phone PCP Unavailable Allergies and Adverse Reactions Name Reaction Notes NO KNOWN DRUG ALLERGIES Plan of Treatment Not available. Medications Active [...] tablet (150 mg) by oral route once Dexilant oral capsule,biphase delayed releas 60 mg 08/09/2014 09/08/2014 take 1 capsule (60 mg) by oral route once daily for 30 days amitriptyline oral tablet 25 mg 08/09/2014 09/08/2014 take 1/2 to 1 tablet po qHS Reglan oral tablet 10 mg take 1 [...] HC BMI BSA BMI Percentile O2 Sat(%) 08/09/2014 1:53:00 PM 133 mmHg 87 mmHg [...] (irritable bowel syndrome) Aug 09 2014 2:03PM Payers Insurance Name Company Name Plan Name Plan Number Policy Number Policy Group Number Start Date [facility] [id number] N/A [facility] Comm Plan of [id number] N/A History of Encounters Visit Date Visit Type Provider 08/09/2014 Office visit Kenneth Motta DO 07/28/2014 [facility] Kenneth Motta DO 07/22/2014 [...]
--- OUTSIDE RECORDS SUMMARY | 2017-02-28 01:41 | XMS REPORT ---
Author Author Jeri Stinson [facility] Address [address] [place], [place] [id number] Care Team Providers Care Bushel Girl Name Role Phone Jeri Stinson PCP [...] Policy Number Policy Group Number Start Date [facility] - Community [facility] Comm [id number] N/A [facility] Comm Plan of [id number] N/A History of Encounters Visit Date Visit Type Provider 07/04/2015 Office visit Jeri BISWAS 05/24/2015 Office visit 05/24/2015 Office visit Micky Rider MD 05/09/2015 Office visit Karen Diane FOLDER STITCHER OPERATOR 05/05/2015 Office visit Jeri BISWAS 04/21/2015 Office visit Jeri BISWAS 04/20/2015 Laboratory Jeri BISWAS 04/11/2015 Laboratory Jeri BISWAS 04/10/2015 Office visit Jeri BISWAS 02/28/2015 Office visit Kenneth Motta DO 11/07/2014 Office visit 11/07/2014 Office visit Karen Diane FOLDER STITCHER OPERATOR 09/29/[address] JULY CHAVEZ MD 09/13/2014 Office visit Karen Diane FOLDER STITCHER OPERATOR 08/09/2014 Office visit Kenneth Motta DO 07/28/2014 Hospital Kenneth Motta DO 07/22/2014 Office visit 07/22/2014 Office visit Kenneth Motta DO 06/04/2014 Hospital Ysabel Chi MD 03/28/2014 Office visit Vijay León MD 03/15/2014 Hospital Vijay León MD 03/09/2014 Office visit Dimitry García MD 03/03/2014 Surgery Vijay León MD 01/30/2014 [facility] Vijay León MD 01/27/2014 Office visit Vijay León MD 01/27/2014 [facility] Vijay León MD 01/26/2014 Office visit Vijay León MD 01/26/2014 [facility] Vijay León MD 01/12/2014 Office visit Vijay León MD 01/12/2014 [facility] Vijay León MD 01/07/2014 [facility] Vijay León MD
--- OUTSIDE RECORDS SUMMARY | 2017-02-28 01:42 | XMS REPORT ---
Author Author Jeri Stinson [facility] Address [address] [place], [place] [id number] Care Team Providers Care Inspector Receiving Name Role Phone Jeri Stinson PCP Allergies [...] Number Policy Group Number Start Date [facility] - Community [facility] Comm [id number] N/A [facility] Comm Plan of [id number] N/A History of Encounters Visit Date Visit Type Provider 04/11/2015 Laboratory Jeri BISWAS 04/10/2015 Office visit Jeri BISWAS 02/28/2015 Office visit Kenneth Motta DO 11/07/2014 Office visit 11/07/2014 Office visit Karen Diane ELECTRICAL MAINTENANCE SUPERVISOR 09/29/[address] JULY CHAVEZ MD 09/13/2014 Office visit Karen Diane ELECTRICAL MAINTENANCE SUPERVISOR 08/09/2014 Office visit Kenneth Motta DO 07/28/2014 Hospital Kenneth Motta DO 07/22/2014 Office visit 07/22/2014 Office visit Kenneth Motta DO 06/04/2014 [facility] Ysabel Chi MD 03/28/2014 Office visit Vijay León MD 03/15/2014 [facility] Vijay León MD 03/09/2014 Office visit Dimitry García MD 03/03/2014 Surgery Vijay León MD 01/30/2014 [facility] Vijay León MD 01/27/2014 Office visit Vijay León MD 01/27/2014 [facility] Vijay León MD 01/26/2014 Office visit Vijay León MD 01/26/2014 [facility] Vijay León MD 01/12/2014 Office visit Vijay León MD 01/12/2014 [facility] Vijay León MD 01/07/2014 [facility] Vijay León MD
--- OUTSIDE RECORDS SUMMARY | 2017-02-28 01:43 | XMS REPORT | Continuity of Care Document ---
Author Author [facility] Organization [facility] Address Unknown Phone Unavailable Allergies Medications Problems Procedures Results Encounters ACCT No. Visit Date/Time Discharge Status Pt. Type Provider Facility Loc./Unit Complaint [id number] 06/05/2016 15:30:45 06/05/2016 23: 59:59 CLS Outpatient Jeri Stinson [id number] 03/26/2016 11:30:40 03/26/2016 23: 59:59 CLS Outpatient Jeri Stinson [id number] 02/07/2016 14:29:35 02/07/2016 23: 59:59 CLS Outpatient Jeri Stinson [id number] 01/30/2016 15:10:17 01/30/2016 23: 59:59 CLS Outpatient Jeri Stinson [id number] 01/17/2016 11:28:36 01/17/2016 23: 59:59 CLS Outpatient Jeri Stinson [id number] 12/20/2015 16:14:04 12/20/2015 23: 59:59 CLS Outpatient Jeri Stinson [id number] 12/19/2015 12:27:28 12/19/2015 23: 59:59 CLS Outpatient Ysabel Chi [id number] 12/14/2015 12:24:03 12/14/2015 23: 59:59 CLS Outpatient Ysabel Chi [id number] 11/24/2015 10:11:50 11/24/2015 23: 59:59 CLS Outpatient Jeri Stinson [id number] 2015 12:31:27 2015 23: 59:59 CLS Outpatient Ysabel Chi [id number] 11/22/2015 14:12:01 11/22/2015 23: 59:59 CLS Outpatient Jeri Stinson [id number] 11/22/2015 09:44:22 11/22/2015 23: 59:59 CLS Outpatient Ysabel Chi [id number] 11/16/2015 11:39:23 11/16/2015 23: 59:59 CLS Outpatient Jeri Stinson [id number] 11/01/2015 09:37:21 11/01/2015 23: 59:59 CLS Outpatient Jeri Stinson [id number] 05/24/2015 09:54:35 05/24/2015 23: 59:59 CLS Outpatient Micky Rider [id number] 05/09/2015 16:46:32 05/09/2015 23: 59:59 CLS Outpatient Karen Diane [id number] 05/05/2015 11:42:26 05/05/2015 23: 59:59 CLS Outpatient MiladJeri [id number] 04/21/2015 11:51:57 04/21/2015 23: 59:59 CLS Outpatient Jeri Stinson [id number] 04/20/2015 12:00:52 04/20/2015 23: 59:59 CLS Outpatient Jeri Stinson [id number] 04/11/2015 11:44:12 04/11/2015 23: 59:59 CLS Outpatient Jeri Stinson [id number] 04/10/2015 16:00:06 04/10/2015 23: 59:59 CLS Outpatient Jeri Stinson [id number] 02/28/2015 10:40:47 02/28/2015 23: 59:59 CLS Outpatient Kenneth Motta [id number] 11/07/2014 11:08:17 11/07/2014 23: 59:59 CLS Outpatient Karen Diane [id number] 10/31/2014 22:28:47 10/31/2014 23: 59:59 CLS Outpatient Ysabel Chi [id number] 10/31/2014 22:13:12 10/31/2014 23: 59:59 CLS Outpatient Vijay León [id number] 10/31/2014 22:02:00 10/31/2014 23: 59:59 CLS Outpatient Karen Diane [id number] 10/31/2014 21:31:29 10/31/2014 23: 59:59 CLS Outpatient Kenneth Motta [id number] 08/02/2014 09:48:27 08/02/2014 23: 59:59 CLS Outpatient Kenneth Motta [id number] 07/22/2014 13:50:58 07/22/2014 23: 59:59 CLS Outpatient Kenneth Motta [id number] 03/28/2014 12:25:59 03/28/2014 23: 59:59 CLS Outpatient LeónColejackson Shine [id number] 03/22/2014 10:20:48 03/22/2014 23: 59:59 CLS Outpatient LeónColejackson Shine [id number] 03/09/2014 10:41:45 03/09/2014 23: 59:59 CLS Outpatient Dimitry García [id number] 03/03/2014 14:54:53 03/03/2014 23: 59:59 CLS Outpatient Vijay León [id number] 02/14/2014 09:55:49 02/14/2014 23: 59:59 CLS Outpatient Vijay León [id number] 02/14/2014 09:51:24 02/14/2014 23: 59:59 CLS Outpatient Vijay León [id number] 02/01/2014 15:38:02 02/01/2014 23: 59:59 CLS Outpatient Vijay León [id number] 01/27/2014 11:51:30 01/27/2014 23: 59:59 CLS Outpatient Vijay León [id number] 01/26/2014 10:39:24 01/26/2014 23: 59:59 CLS Outpatient Vijay León [id number] 01/24/2014 12:34:49 01/24/2014 23: 59:59 CLS Outpatient Vijay León [id number] 01/21/2014 11:32:11 01/21/2014 23: 59:59 CLS Outpatient Vijay León [id number] 01/12/2014 17:07:25 01/12/2014 23: 59:59 CLS Outpatient Vijay León
--- OUTSIDE RECORDS SUMMARY | 2017-02-28 01:43 | XMS REPORT ---
Author Author Karen Diane [facility] Address [address] [facility] [place], [place] [id number] Care Team Providers Care Returned Goods Receiving Clerk Name Role Phone Karen Diane PCP Unavailable Allergies and Adverse Reactions Name Reaction Notes NO KNOWN DRUG ALLERGIES Plan of Treatment Planned Activity Comments Planned Date Planned Time Plan/Goal US EXAM PELVIC COMPLETE 11/07/2014 12:00 AM [...] 124.25 lbs 63 in 22.0097 kg/m 1.5828 03/09/2014 11:02:00 AM 122 mmHg 64 mmHg [...] TUMOR CA 125 Returned 11/07/2014 12:00 AM HEPATITIS C AB TEST [...] Policy Group Number Start Date [facility] - [facility] - Community Plan [facility] Comm [id number] N/A [facility] Community [facility] Comm Plan of [id number] N/A History of Encounters Visit Date Visit Type Provider 11/07/2014 Office visit Karen Diane REPULPING SUPERVISOR 09/29/[address] JULY CHAVEZ MD 09/13/2014 Office visit Karen Diane REPULPING SUPERVISOR 08/09/2014 Office visit Kenneth Motta DO 07/28/2014 [facility] Kenneth Motta DO 07/22/2014 Office visit Kenneth Motta DO 06/04/2014 [facility] Ysabel Chi MD 03/28/2014 Office visit Vijay León MD 03/15/2014 [facility] Vijay León MD 03/09/2014 Office visit Dimitry García MD 03/03/2014 Surgery Vijay León MD 01/30/2014 Sonia León MD 01/27/2014 Office visit Vijay León MD 01/27/2014 [facility] Vijay León MD 01/26/2014 Office visit Vijay León MD 01/26/2014 [facility] Vijay León MD 01/12/2014 Office visit Vijay León MD 01/12/2014 [facility] Vijay León MD 01/07/2014 [facility] Vijay León MD
--- OUTSIDE RECORDS SUMMARY | 2017-02-28 01:43 | XMS REPORT | CCD ---
Author Author ANDREA BARRERA Organization Unknown Address [address] [facility] [address] [place], [place] [id number] Care Team Providers Care Cut Off Tender Glass Name Role Phone MIRTA RUDOLPH, CHAU Auguste Attphys CHAU KIRBY MD Prisusonia Vital Signs Unknown or Not Available. Allergies Allergy Code Allergy Type Reaction Status No Known Drug Allergies 0 No known drug allergies Active Procedures Procedure Code Procedure Type Date TEST 772141473 SNOMED [address] 06/18/[address] 06/18/[address] 06/18/2015 COMPREHENSIVE METABOLIC PANEL 968882366 SNOMED CT 2015 CBC W/ AUTO DIFF (RFLX MAN DIFF IF IND) 0212530 SNOMED CT 06/18/2015 ^CBC W/AUTO DIFF 0849008 SNOMED CT 06/18/2015 History of Immunizations Immunization Code Date Tdap 115 12/14/2013 Influenza, seasonal, injectable 141 01/30/2011 Problems Problem Code Start Date Resolved Date Status Vaginal delivery 108674823 Active Female sterilization 72506838 Active Results COMPREHENSIVE METABOLIC PANEL - Collect Date/Time: 06/18/2015 13:00 Test Name Code Test Result Test Units Test Ref Range GLUCOSE 2345-7 95 MG/DL L=70 H=100 SODIUM 2951-2 140 MEQ/L L=135 H=148 POTASSIUM 2823-3 3.9 MEQ/L L=3.5 H=5.3 CHLORIDE 2075-0 104 MEQ/L L=96 H=110 CO2 2028-9 27 MEQ/L L=22 H=29 BUN 3094-0 9 MG/DL L=8 H=22 CREATININE 2160-0 0.8 MG/DL L=0.6 H=1.6 SGOT/AST 1920-8 20 IU/L L=10 H=40 SGPT/ALT 1742-6 20 IU/L L=8 H=54 ALK PHOS 6768-6 108 IU/L L=35 H=115 TOTAL PROTEIN 2885-2 6.8 G/DL L=5.5 H=8.5 ALBUMIN 1751-7 4.2 G/DL L=3.1 H=5.4 TOTAL BILI 1975-2 0.6 MG/DL L=0.0 H=1.5 CALCIUM 94262-8 9.1 MG/DL L=8.2 H=10.6 AGE 29 yrs GFR NonAA 85 GFR AA 103 eGFR >60 N/A eGFR AA* >60 N/A LIPASE - Collect Date/Time: 06/18/2015 13:00 Test Name Code Test Result Test Units Test Ref Range LIPASE 3040-3 26 U/L L=8 H=78 CBC W/ AUTO DIFF (RFLX MAN DIFF IF IND) - Collect Date/Time: 06/18/2015 13:00 Test Name Code Test Result Test Units Test Ref Range WBC 42825-9 6.0 TH/CMM L=4.5 H=10.8 RBC 789-8 4.31 ML/CMM L=4.20 H=5.40 HGB 718-7 12.6 G/DL L=12.0 H=16.0 HCT 4544-3 39.8 % L=37.0 H=47.0 MCV 92 FL L=81 H=99 MCH 29.2 PG L=27.0 H=33.0 MCHC 31.7 G/DL L=31.0 H=36.0 RDW SD 46 FL L=36 H=50 RDW CV 13.2 % L=0.0 H=14.8 MPV 10.8 FL L=9.3 H=12.5 PLT 777-3 233 TH/CMM L=130 H=440 NRBC# 0.00 TH/CMM L=0.00 H=0.00 NRBC% 0.0 /100WBC L=0.0 H=2.0 %NEUT 59.3 % %LYMP 31.3 % %MONO 7.4 % %EOS 1.0 % %BASO 0.7 % #NEUT 3.53 TH/CMM L=2.10 H=8.20 #LYMP 1.86 TH/CMM L=0.90 H=5.20 #MONO 0.44 TH/CMM L=0.16 H=1.00 #EOS 0.06 TH/CMM L=0.00 H=0.80 #BASO 0.04 TH/CMM L=0.00 H=0.20 MANUAL DIFF NOT IND N/A TEST - Collect Date/Time: 06/18/2015 13:00 Test Name Code Test Result Test Units Test Ref Range TEST 2118-8 NEGATIVE N/A AMYLASE - Collect Date/Time: 06/18/2015 13:00 Test Name Code Test Result Test Units Test Ref Range AMYLASE 1798-8 42 IU/L L=25 H=125 Active Medications Medication Code Dose Units Frequency Route Modification Start Date/Time Acetaminophen/Codeine 300MG-30MG Oral Tablet 167073 1 TABLET NEEDED EVERY 6 HR BY MOUTH 02/01/2014 08 :57 Prescription Detail 1 TABLET BY MOUTH NEEDED EVERY 6 HR Ibuprofen 800MG Oral Tablet 876688 800 MILLIGRAMS NEEDED EVERY 8 HR BY MOUTH 02/01/2014 08:57 Prescription Detail 800 MILLIGRAMS BY MOUTH NEEDED EVERY 8 HR Oral Tablet 172784 1 EACH DAILY ORAL 02/01/2014 08:57 Prescription Detail 1 EACH ORAL DAILY Medications Administered During Visit Unknown or Not Available. Encounters Encounter Diagnosis Diagnosis Code Start Date Chest pain [id number] 06/18/2015 Social History Smoking Status Code Start Date End Date Current every day smoker 818060779 Patient Decision Aids Unknown or Not Available. Discharge Instructions You were admitted to [facility] on 06/18/2015 11:42 with a principal diagnosis of Other chest pain You had the following tests done: AMYLASE CBC W/ AUTO DIFF (RFLX MAN DIFF IF IND) COMPREHENSIVE METABOLIC PANEL LIPASE TEST You were discharged from [facility] on 06/18/2015 15:01 Should you have any questions prior to [...]
[2017-02-28] MEDS ORDERED: KETOROLAC 30 MG/ML VIAL IVP ONE (01:45)
[2017-02-28] MEDS ORDERED: ONDANSETRON 4 MG/2 ML (SDV) Z0FRAN IVP ONE (01:45)
[2017-02-28] MEDS ORDERED: HYOSCYAMINE 0.125 MG (LEVSIN) TAB PO ONE (01:45)
[2017-02-28 01:58] LABS: BASOPHILS % (AUTO) 0 % (0-10); EOSINOPHILS % (AUTO) 1 % (0-10); LYMPHOCYTES # (AUTO) 0.9 X 10^3 (1.0-4.0); LYMPHOCYTES % (AUTO) 16 % (12-44); MEAN CORPUSCULAR HEMOGLOBIN 29 PG (25-34); MEAN CORPUSCULAR HGB CONC 34 G/DL (32-36); MEAN CORPUSCULAR VOLUME 86 FL (80-99); MEAN PLATELET VOLUME 10.4 FL (7.4-10.4); MONOCYTES # (AUTO) 0.5 X 10^3 (0.0-1.0); MONOCYTES % (AUTO) 8 % (0-12); NEUTROPHILS # (AUTO) 4.2 X 10^3 (1.8-7.8); NEUTROPHILS % (AUTO) 75 % (42-75); PLATELET COUNT 219 10^3/uL (130-400); RED BLOOD COUNT 4.33 10^6/uL (4.35-5.85); RED CELL DISTRIBUTION WIDTH 14.3 % (10.0-14.5); WHITE BLOOD COUNT 5.6 10^3/uL (4.3-11.0)
[2017-02-28 02:18] LABS: ALANINE AMINOTRANSFERASE 27 U/L (0-55); ALBUMIN 4.2 GM/DL (3.2-4.5); ANION GAP 13 MMOL/L (5-14); ASPARTATE AMINO TRANSFERASE 21 U/L (5-34); BILIRUBIN,TOTAL 1.3 MG/DL (0.1-1.0); BLOOD UREA NITROGEN 13 MG/DL (7-18); BUN/CREATININE RATIO 16; CALCIUM 8.9 MG/DL (8.5-10.1); CARBON DIOXIDE 23 MMOL/L (21-32); CHLORIDE 99 MMOL/L (98-107); CREATININE SERUM 0.79 MG/DL (0.60-1.30); GFR ESTIMATED > 60; GLUCOSE 105 MG/DL (70-105); POTASSIUM 3.7 MMOL/L (3.6-5.0); SODIUM 135 MMOL/L (135-145); TOTAL PROTEIN 7.1 GM/DL (6.4-8.2)
[2017-02-28] MEDS ORDERED: RIZA5TAB32 PO (02:58)
[2017-02-28] MEDS ORDERED: ONDA4TAB8 SL (02:58)
--- NOTE | 2017-02-28 02:58 | ED General ---
General Chief Complaint: General Problems/Pain Stated Complaint: CARMONA,VOMITING,CAN'T EAT OR DRINK ANYTHING,DIARRHEA Nursing Triage Note: GENERALIZED BODY ACHE, N/V Nursing Sepsis Screen: No Definite Risk Source of Information: Patient Exam Limitations: No Limitations History of Present Illness Time Seen by Provider: 01:29 Initial Comments This 31-year-old woman presents to the emergency room with complaints of vomiting and diarrhea since February 26. She is concerned about her hydration status as she has had decreased urine output. She has generalized body aches and headache. She has had chills without fever. She has no local provider and recently moved here from [place]. She does have history of migraines and is out of the Maxalt she usually takes for migraine treatment. Allergies and Home Medications Allergies Coded Allergies: No Known Drug Allergies (Unverified , 09/28/10) Home Medications Ondansetron 4 Mg Tab.rapdis, 4 MG SL Q4H PRN for NAUSEA/VOMITING-1ST LINE, #10 Prescribed by: ELDA CHRISTIAN on 02/28/17257 Rizatriptan Benzoate 5 Mg Tablet, 5 MG PO UD, #5 Take one every 2 hours as needed for headache. Maximum of 3 per day Prescribed by: ELDA CHRISTIAN on 02/28/17257 Constitutional: see HPI EENTM: no symptoms reported Respiratory: no symptoms reported Cardiovascular: no symptoms reported Gastrointestinal: see HPI Genitourinary: see HPI : No Musculoskeletal: no symptoms reported Skin: no symptoms reported Psychiatric/Neurological: No Symptoms Reported Hematologic/Lymphatic: No Symptoms Reported Past Ijefxrx-Crnkza-Yuyvis Hx Patient Social History Alcohol Use: Denies Use Recreational Drug Use: No Smoking Status: Current Everyday Smoker Type Used: Cigarettes 2nd Hand Smoke Exposure: Yes Recent Foreign Travel: No Contact w/Someone Who Travel: No Recent Infectious Disease Expo: No Recent Hopitalizations: No Immunizations Up To Date Date of Influenza Vaccine: Dec 22, 2010 Seasonal Allergies Seasonal Allergies: No Surgeries History of Surgeries: Yes (loop recorder) Surgeries: Tubal Ligation Respiratory History of Respiratory Disorde: No Cardiovascular History of Cardiac Disorders: Yes Cardiac Disorders: Atrial Fibrillation, Heart Murmur, Valvular Heart Disease ( mitral valve prolapse) Neurological History of Neurological Disord: No Reproductive System : 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 Genitourinary History of Genitourinary Disor: No Gastrointestinal History of Gastrointestinal Di: No Musculoskeletal History of Musculoskeletal Dis: Yes Musculoskeletal Disorders: Chronic Back Pain Endocrine History of Endocrine Disorders: No HEENT History of HEENT Disorders: No Cancer History of Cancer: No Psychosocial History of Psychiatric Problem: Yes Behavioral Health Disorders: Bipolar Integumentary History of Skin or Integumenta: No Blood Transfusions History of Blood Disorders: No Physical Exam Vital Signs Vital Sign - Last 12Hours 02/28/17 01:03 Temp 98.1 Pulse 90 Resp 16 B/P (MAP) 104/69 (81) Pulse Ox 94 O2 Delivery Room Air Capillary Refill : Less Than 3 Seconds General Appearance: No Apparent Distress, WD/WN, Thin HEENT: PERRL/EOMI, Normal ENT Inspection, Pharynx Normal Neck: Normal Inspection Respiratory: Lungs Clear, Normal Breath Sounds, No Accessory Muscle Use, No Respiratory Distress Cardiovascular: No Edema, No Murmur, Normal Peripheral Pulses, Irregularly Irregular Gastrointestinal: Normal Bowel Sounds, Non Tender, Soft Extremity: Normal Inspection, No Pedal Edema Neurologic/Psychiatric: Alert, Oriented x3, No Motor/Sensory Deficits, Normal Mood/Affect, quality control II-XII Norm as Tested Skin: Normal Color, Warm/Dry Progress/Results/Core Measures Suspected Sepsis Recent Fever Within 48 Hours: No Infection Criteria Present: None New/Unexplained Altered Menta: No Sepsis Screen: No Definite Risk Sepsis Diagnosis: SIRS Temperature:98.1 Pulse: 90 Respiratory Rate: 16 Laboratory Tests 02/28/17 01:50: White Blood Count 5.6 Blood Pressure 104 /69 Mean: 81 Laboratory Tests 02/28/17 01:50: Creatinine 0.79, Platelet Count 219, Total Bilirubin 1.3H Results/Orders Lab Results Laboratory Tests Test 02/28/17 01:50 Range/Units White Blood Count 5.6 4.3-11.0 10^3/uL Red Blood Count 4.33 L 4.35-5.85 10^6/uL Hemoglobin 12.5 11.5-16.0 G/DL Hematocrit 37 35-52 % Mean Corpuscular Volume 86 80-99 FL Mean Corpuscular Hemoglobin 29 25-34 PG Mean Corpuscular Hemoglobin Concent 34 32-36 G/DL Red Cell Distribution Width 14.3 10.0-14.5 % Platelet Count 219 130-400 10^3/uL Mean Platelet Volume 10.4 7.4-10.4 FL Neutrophils (%) (Auto) 75 42-75 % Lymphocytes (%) (Auto) 16 12-44 % Monocytes (%) (Auto) 8 0-12 % Eosinophils (%) (Auto) 1 0-10 % Basophils (%) (Auto) 0 0-10 % Neutrophils # (Auto) 4.2 1.8-7.8 X 10^3 Lymphocytes # (Auto) 0.9 L 1.0-4.0 X 10^3 Monocytes # (Auto) 0.5 0.0-1.0 X 10^3 Eosinophils # (Auto) 0.0 0.0-0.3 10^3/uL Basophils # (Auto) 0.0 0.0-0.1 10^3/uL Sodium Level 135 135-145 MMOL/L Potassium Level 3.7 3.6-5.0 MMOL/L Chloride Level 99 98-107 MMOL/L Carbon Dioxide Level 23 21-32 MMOL/L Anion Gap 13 5-14 MMOL/L Blood Urea Nitrogen 13 7-18 MG/DL Creatinine 0.79 0.60-1.30 MG/DL Estimat Glomerular Filtration Rate > 60 BUN/Creatinine Ratio 16 Glucose Level 105 70-105 MG/DL Calcium Level 8.9 8.5-10.1 MG/DL Magnesium Level 2.0 1.8-2.4 MG/DL Total Bilirubin 1.3 H 0.1-1.0 MG/DL Aspartate Amino Transf (AST/SGOT) 21 5-34 U/L Alanine Aminotransferase (ALT/SGPT) 27 0-55 U/L Alkaline Phosphatase 94 40-136 U/L Total Protein 7.1 6.4-8.2 GM/DL Albumin 4.2 3.2-4.5 GM/DL My Orders Orders - ELDA EVERETT MD Cbc With Automated Diff (02/28/17 01:37) Comprehensive Metabolic Panel (02/28/17 01:37) Magnesium (02/28/17 01:37) Saline Lock/Iv-Start (02/28/17 01:37) Ns Iv 1000 Ml (Sodium Chloride 0.9%) (02/28/17 01:37) Ondansetron Injection (Zofran Injectio (02/28/17 01:45) Hyoscyamine Sl Tablet (Levsin Sl Tablet) (02/28/17 01:45) Ketorolac Injection (Toradol Injection) (02/28/17 01:45) Medications Given in ED Current Medications Medications Dose Ordered Sig/Naga Route Start Time Stop Time Status Last Admin Dose Admin Hyoscyamine Sulfate 0.25 mg ONCE ONCE PO 02/28/17 01:45 02/28/17 01:46 DC 02/28/17 01:50 0.25 MG Ketorolac Tromethamine 30 mg ONCE ONCE IVP 02/28/17 01:45 02/28/17 01:46 DC 02/28/17 01:51 30 MG Ondansetron HCl 8 mg ONCE ONCE IVP 02/28/17 01:45 02/28/17 01:46 DC 02/28/17 01:50 8 MG Sodium Chloride 1,000 ml @ 0 mls/hr Q0M ONCE IV 02/28/17 01:37 02/28/17 01:39 DC 02/28/17 01:50 0 MLS/HR Vital Signs/I&O Vital Sign - Last 12Hours 02/28/17 02/28/17 02/28/17 01:03 01:51 03:10 Temp 98.1 98.1 98.0 Pulse 90 62 Resp 16 16 B/P (MAP) 104/69 (81) Pulse Ox 94 100 O2 Delivery Room Air Room Air Capillary Refill : Less Than 3 Seconds Blood Pressure Mean: 81 Progress Note : Progress Note Patient received a liter of IV fluids, Zofran, Levsin, and Toradol with improvement in symptoms. Short course of Maxalt was prescribed for further treatment of her migraines. Departure Impression Impression: Primary Impression: Nausea vomiting and diarrhea Additional Impressions: Acute headache Qualified Codes: R51 - Headache Myalgia Disposition: HOME, SELF-CARE Condition: Improved Departure-Patient Inst. Decision time for Depature: 02:50 Referrals: NO,LOCAL PHYSICIAN (PCP/Family) Primary Care Physician Patient Instructions: Headache, Adult Add. Discharge Instructions: Drink plenty of clear liquids. Gradually advance your diet with small quantities of bland food as tolerated. You may take ibuprofen up to 400 mg every 6 hours as needed for pain. Add Tylenol (acetaminophen) up to 650 mg every 6 hours as needed for additional pain relief. Use your other medications as prescribed. Establish with a primary care provider soon as possible. All discharge instructions reviewed with patient and/or family. Voiced understanding. Scripts Rizatriptan Benzoate (Maxalt) 5 Mg Tablet 5 MG PO UD, #5 TAB Take one every 2 hours as needed for headache. Maximum of 3 per day Prov: ELDA EVERETT MD 02/28/17 Ondansetron (Zofran Odt) 4 Mg Tab.rapdis 4 MG SL Q4H Y for NAUSEA/VOMITING-1ST LINE, #10 TAB Prov: ELDA EVERETT MD 02/28/17 ELDA EVERETT MD Feb 28, 2017 02:58
[2017-02-28 03:10] VITALS: BP 99/41
== END 2017-02-28 03:08 | disposition home or self-care (01) ==
LOC: EDUNIT# 00:44 → ER 00:50
DX: R11.2 Nausea with vomiting, unspecified (principal); R19.7 Diarrhea, unspecified; R51 Headache; M79.1 Myalgia; G43.909 Migraine, unspecified, not intractable, without status migrainosus; I48.91 Unspecified atrial fibrillation; F31.9 Bipolar disorder, unspecified; F17.210 Nicotine dependence, cigarettes, uncomplicated; Z98.51 Tubal ligation status
CPT/HCPCS: 36415; 80053; 83735; 85025